=== PATIENT | male | born 1945 | race Caucasian/White ===

== ENCOUNTER 2017-01-12 10:06 | Inpatient (IN) ==
--- NOTE | 2017-01-12 10:33 | Emergency Department Note ---
Disposition Clinical Impression: HCAP (healthcare-associated pneumonia) Disposition: Admitted As Inpatient Condition: Fair Time of Disposition: 14:14 General Adult HPI - General Chief complaint: ED Nausea/Vomiting/Diarrhea Stated complaint: Vomiting Time Seen by Provider: 01/12/17 10:15 Source: patient, EMS Mode of arrival: EMS Limitations: no limitations Nursing Notes Reviewed: Yes Vital Signs Reviewed: Yes - History of Present Illness HPI Narrative: 71-year-old male presents from the [place] via EMS for coughing up blood as well as vomiting. Patient states he woke up twice at approximately 1:00 this morning and 4:00 this morning vomited and had a small speck of blood in each of those. Patient does have a open stoma does not seem to be infected. He said it has been in since 1999. He also agrees been coughing up small streaks of blood that is all coming through his mouth, not his stoma. Patient otherwise is having no pain. He is not having any shortness of breath, chest pain, abdominal pain or is not nauseous at this time. Patient is having no other complaints. Including headache, blurry vision, changes in bowel movements pain with urination or any pain or tingling in the arms or legs or any numbness. Pain Scale: 0 - Related Data Allergies Allergy/AdvReac Type Severity Reaction Status Date / Time aspirin Allergy See Verified 01/12/17 10:46 Comments codeine Allergy See Verified 01/12/17 10:46 Comments Review of Systems: 10 point review of systems done and negative unless otherwise stated in history of present illness. All systems ED: reviewed and negative except as stated. Review of Systems: As Per HPI Constitutional: Denies: fever, chills Cardiovascular: Denies: chest pain Respiratory: Reports: cough Past Medical History - Past Medical History Attestation: Yes The following information was validated with the patient. Source: patient Medical history: Reports: asthma, COPD, myocardial infarction, thyroid disease Psychiatric history: Reports: previous psychiatric hospitalization - Social History Smoking Status: Current every day smoker Smokeless Tobacco Status: No Alcohol use: Reports: none Drug use: Reports: none Physical Exam - General Limitations: no limitations General appearance: alert, in no apparent distress - Head Head exam: atraumatic, normocephalic, normal inspection - Eye Eye exam: Present: normal appearance, PERRL, EOMI - ENT ENT exam: normal exam, normal oropharynx (No blood noticeable in the oropharynx. ), mucous membranes moist - Neck Neck exam: Present: normal inspection - Chest Chest inspection: Present: normal inspection, symmetric chest wall rise - Respiratory Respiratory exam: Present: normal lung sounds bilaterally - Cardiovascular Cardiovascular exam: Present: regular rate, normal rhythm, normal heart sounds - Abdominal Exam Abdominal exam: Present: soft, Non-Tender. Absent: tenderness, distention, guarding, rebound, rigidity - Extremities Exam Extremities exam: Present: normal inspection, full ROM, normal capillary refill. Absent: tenderness, pedal edema, joint swelling, calf tenderness - Expanded Lower Extremity Exam Neurovascular/Tendon exam: Absent: motor deficit, sensory deficit, tendon deficit - Back Exam Back exam: Present: normal inspection, full ROM. Absent: tenderness, CVA tenderness (R), CVA tenderness (L) - Neurological Exam Neurological exam: Present: alert, oriented X3 - Psychiatric Psychiatric exam: Present: normal affect, normal mood - Skin Skin exam: Present: warm, dry, intact, normal color Course Course Narrative: 71-year-old male presented to the ED for vomiting up and coughing up blood. He comfortably. He is having any complaints otherwise here. We will just do a CBC , BMP, chest x-ray. If everything comes back normal no acute findings will sent back to [place] for continued psychiatric treatment. Patient is okay with this plan. - Reevaluation(s) Reevaluation #1: Patient's chest x-ray came back showing abnormalities with others worried about possible pulmonary effusion and a wide mediastinum so after talking to patient we decided that we will get a troponin as well as an EKG into a CT angiogram of his chest. Patient is okay with this plan. After the records from the [place] patient is on Clopidogrel. 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 Patient does have a history of CAD, COPD. Patient has had bypass before. Patient did eventually put on oxygen while here 2 L via the stoma to help with his oxygen saturations. Time: 12:32 Vital Signs Temperature 98.1 F 01/12/17 10:14 Pulse Rate 94 01/12/17 10:14 Respiratory Rate 18 01/12/17 10:14 Blood Pressure 160/98 01/12/17 10:14 O2 Sat by Pulse Oximetry 97 01/12/17 10:14 Temperature 98.1 F 01/12/17 10:14 Pulse Rate 98 01/12/17 10:14 Respiratory Rate 18 01/12/17 14:26 Blood Pressure 150/60 01/12/17 14:26 O2 Sat by Pulse Oximetry 97 01/12/17 10:14 Oxygen Delivery Oxygen Delivery [place] Medical Decision Making - MDM Narrative Medical decision making narrative: 71-year-old male presents to the ED from the [place] for hemoptysis and hematemesis. Patient does have a stoma due to having laryngeal cancer and had a complete laryngectomy. This is done in 1999. He does have a stoma. Patient states he is not complaining of any pain he says that he has had a cough for last 2 days because of COPD. Patient also has history of CAD. Was not complaining chest pain he did have a bypass done many years ago. Said no, dictation since then. He was admitted to the [facility] in their psychiatric unit for psych issues. Otherwise having no complaints. Here we did a basic labs including CBC and BMP which came back normal. Chest x-ray did show possibility of a pneumonia or effusions at this time we decided to order a CTA of his chest as he was hypoxic and tachycardic. Patient was less hypoxic after we placed the nasal cannula on his stoma rather than his mouth. Patient's now satting at 95%. CTA showed consolidations and most likely pneumonia was with possible empyema/pleural effusion. At this time we decided to order lactate and started him on broad- spectrum antibiotics as this could be hospital-acquired pneumonia we started him on Levaquin, Zosyn, vancomycin. We also got blood cultures. Patient is admitted to the hospital service to Dr. Gallegos who agreed to accept the patient. Patient is stable at this time and admitted to the hospitalist service. Chest X-Ray 01/12/17 10:28 IMPRESSION: Prominence of the superior mediastinum of uncertain etiology. Findings could be related to artifact from portable technique and shallow breath. If there is any concern for acute aortic pathology recommend further evaluation with CTA. [id number] bilateral pleural effusions with adjacent airspace opacities, either atelectasis or pneumonia. Cardiomegaly with mild interstitial edema. Constellation of findings could also reflect congestive heart failure. D/ / 01/12/2017 11:15:49 Iva Barrera MD / [email or web address] Interpreting Provider: Iva Barrera MD Chest CTA 01/12/17 12:10 IMPRESSION: 1. Loculated pleural effusion on the right side and smaller type effusions seen on the left. There is pleural enhancement, and the possibility of an empyema is considered. 2. Diffuse, mild airway thickening is identified along with debris in the airway. Peripheral consolidations are associated, findings which may relate to acute aspiration or aspiration pneumonitis. 3. Suspected area of rounded atelectasis in the posterior basal left lower lobe. 4. Pulmonary arteries are patent. 5. Extensive degenerative change in the thoracic spine. RECOMMENDATIONS: At the resolution of the acute inflammatory process, repeat imaging recommended to further evaluate underlying lung parenchyma. D/ / 01/12/2017 13:17:45 Darwin Blunt / dre Interpreting Provider: Darwin Blunt - Medical Records Medical records reviewed: Yes I reviewed the patient's medical records. - Lab Data Lab results reviewed: Yes I reviewed the patient's lab results. Result diagrams: 01/12/17 10:39 01/12/17 10:39 Lab Results 01/12/17 01/12/17 01/12/17 Range/Units 10:39 10:39 10:39 WBC 5.2 (4.3-11.1) K/mcL RBC 3.77 L (4.19-5.50) M/mcL Hgb 9.3 L (12.9-16.9) g/dL Hct 31.5 L (37.5-50.1) % MCV 83.6 (83.0-100.0) fL MCH 24.7 L (28.0-33.3) pg MCHC 29.5 L (31.6-35.5) g/dL RDW 14.9 H (11.5-14.5) % Plt Count 207 (140-400) K/mcL MPV 9.4 (9.4-12.4) fL Immature Gran % 0.6 (0-4) % Seg Neutrophils % 70.4 % Lymphocytes % 16.6 % Monocytes % 6.2 % Eosinophils % 5.6 % Basophils % 0.6 % Neutrophils # 3.7 (1.6-8.9) K/mcL Lymphocytes # 0.9 (0.6-4.6) K/mcL Monocytes # 0.3 (0.0-1.3) K/mcL Eosinophils # 0.3 (0.0-0.6) K/mcL Basophils # 0.0 (0.0-0.2) K/mcL PT (9.4-12.1) Seconds INR Sodium 139 (136-145) mEq/L Potassium 4.3 (3.5-4.5) mEq/L Chloride 104 (98-109) mEq/L Carbon Dioxide 30 H (19-29) mEq/L BUN 13 (8-26) mg/dL Creatinine 0.95 (0.72-1.25) mg/dL Est GFR ( Amer) > 60 (> 60) Est GFR (Non-Af Amer) > 60 (> 60) BUN/Creatinine Ratio 14 (6-26) Glucose 121 H (70-99) mg/dL Calculated Osmolality 289 (280-300) Lactic Acid (0.5-2.2) mmol/L Calcium 8.1 L (8.6-10.8) mg/dL Troponin I 0.00 (0-0.03) ng/mL 01/12/17 01/12/17 Range/Units 13:42 13:42 WBC (4.3-11.1) K/mcL RBC (4.19-5.50) M/mcL Hgb (12.9-16.9) g/dL Hct (37.5-50.1) % MCV (83.0-100.0) fL MCH (28.0-33.3) pg MCHC (31.6-35.5) g/dL RDW (11.5-14.5) % Plt Count (140-400) K/mcL MPV (9.4-12.4) fL Immature Gran % (0-4) % Seg Neutrophils % % Lymphocytes % % Monocytes % % Eosinophils % % Basophils % % Neutrophils # (1.6-8.9) K/mcL Lymphocytes # (0.6-4.6) K/mcL Monocytes # (0.0-1.3) K/mcL Eosinophils # (0.0-0.6) K/mcL Basophils # (0.0-0.2) K/mcL PT 12.7 H (9.4-12.1) Seconds INR 1.2 Sodium (136-145) mEq/L Potassium (3.5-4.5) mEq/L Chloride (98-109) mEq/L Carbon Dioxide (19-29) mEq/L BUN (8-26) mg/dL Creatinine (0.72-1.25) mg/dL Est GFR ( Amer) (> 60) Est GFR (Non-Af Amer) (> 60) BUN/Creatinine Ratio (6-26) Glucose (70-99) mg/dL Calculated Osmolality (280-300) Lactic Acid 0.6 (0.5-2.2) mmol/L Calcium (8.6-10.8) mg/dL Troponin I (0-0.03) ng/mL - Radiology Data Radiology results reviewed: Yes I reviewed the patient's radiology results. - EKG Data EKG #1 EKG attestation: Yes I reviewed and interpreted this EKG. EKG results narrative: EKG done at 12:15 reviewed by myself and the attending shows sinus rhythm with a first-degree AV block at a rate of 90, [place] interval 267, QRS 119, QTC 419 with a leftward axis there is no acute ST changes, no acute T-wave abnormalities, no signs of any heart strain or hypertrophy there is a first-degree AV block, no signs of WPW/Brugada syndrome. This is compared with an old EKG done 01/04/16 and is unchanged base on this EKG. Attestation Statement - Attestation Attestation: I examined this patient and my medical decision-making was reviewed with the Resident Physician. I agree with the documented findings, disposition and treatment plan as described except to the extent set forth below. 71-year-old male since the ED from the [facility] for evaluation of hemoptysis. He has had cough as well as possible hematemesis. No fevers or chills. Patient complains of mild increase in dyspnea. Denies any focal pain. Well-appearing male in no apparent distress. He is found sleeping on room air with a pulse ox of 80%. Oropharynx clear. He does have a tracheostomy with an open stoma. No palpable crepitus. Chest with scattered rhonchi in the bases. Breath sounds are symmetrically diminished bilaterally. Chest wall nontender. Abdomen soft nontender. Chest x-ray with bilateral effusions and infiltrates. CT of the chest is concerning for empyema effusion to the pneumonia. He started on broad-spectrum antibiotics and will be admitted to the hospitalist for further treatment and evaluation.
[2017-01-12 10:58] LABS: BUN/Creatinine Ratio 14 (6-26); Blood Urea Nitrogen 13 mg/dL (8-26); Calcium 8.1 mg/dL (8.6-10.8); Carbon Dioxide 30 mEq/L (19-29); Chloride 104 mEq/L (98-109); Glucose 121 mg/dL (70-99); Osmolality,Calculated 289 (280-300); Potassium 4.3 mEq/L (3.5-4.5); Sodium 139 mEq/L (136-145); eGFR For African Americans > 60 (> 60); eGFR For Non-African Americans > 60 (> 60)
[2017-01-12 11:03] LABS: Basophils % 0.6 %; Eosinophils # 0.3 K/mcL (0.0-0.6); Eosinophils % 5.6 %; Hematocrit 31.5 % (37.5-50.1); Hemoglobin 9.3 g/dL (12.9-16.9); Immature Granulocytes % 0.6 % (0-4); Lymphocytes # 0.9 K/mcL (0.6-4.6); Lymphocytes % 16.6 %; Mean Corpuscular HGB Conc 29.5 g/dL (31.6-35.5); Mean Corpuscular Hemoglobin 24.7 pg (28.0-33.3); Mean Corpuscular Volume 83.6 fL (83.0-100.0); Mean Platelet Volume 9.4 fL (9.4-12.4); Monocytes # 0.3 K/mcL (0.0-1.3); Monocytes % 6.2 %; Neutrophils # 3.7 K/mcL (1.6-8.9); Platelet Count 207 K/mcL (140-400); Red Blood Count 3.77 M/mcL (4.19-5.50); Red Cell Distribution Width 14.9 % (11.5-14.5); Segmented Neutrophils % 70.4 %
[2017-01-12] MEDS ORDERED: Vancomycin 1,000 MG in D5% in Water 250 ML IVPB ONE (13:24)
[2017-01-12] MEDS ORDERED: Levofloxacin 750 MG/150 ML 750 MG/150 ML BAG IVPB ONE (13:25)
[2017-01-12] MEDS ORDERED: Piperacillin/Tazobactam 3.375 GM in 0.9 % Sodium Chloride Mini Bag 100 ML IVPB ONE (13:25)
[2017-01-12 13:54] LABS: INR 1.2; Prothrombin Time 12.7 Seconds (9.4-12.1)
--- NOTE | 2017-01-12 16:26 | Internal Med History&Physical ---
Date of Encounter: 01/12/17 Time of Encounter: 16:23 Assessment and Plan (1) HCAP (healthcare-associated pneumonia) Current visit: Yes Status: Acute 71/male Patient is a resident of inpatient [place] psych unit. Transfer to this hospital emergency room for couple of episodes of hemoptysis. Patient has a tracheostomy stoma since 1999. Present hemoglobin 9.2. Present INR 1.2. Platelet count 207 CTA chest: Loculated left pleural effusion, possibility of empyema Left lower lobe pneumonia No pulmonary embolism. Plan: Admit as inpatient IV antibiotics: Vancomycin/Zosyn/levofloxacin IV steroids: Solu-Medrol 40 mg every 8 hr Inhaled bronchodilators. DuoNeb every 4 hours We will keep nothing by mouth. IV fluids 70 mL per hour. We need his medical records from [place]. I spoke to tip scourer( Dr Sinha) patient liaison and discuss the plan. Patient will go for possible bronchoscopy tomorrow. Of note I examined this patient in the room 2A38 along with JOHANNE Ordonez. I have answered all the questions and I informed plan to the patient. The communication with the patient is as follows. Patient will write his questions/concerns on a piece of paper as it is very difficult for him to talk without closing the stoma. But patient understands verbal communication from other side extremely well. (2) Hemoptysis Current visit: Yes Status: Acute Minimal streaky hemoptysis. We will give patient left lateral position. Antibiotics/bronchodilators/steroids. We will do some cough suppressant medication. Possible bronchoscopy tomorrow (3) Dilated tracheostomy stoma Current visit: Yes Status: Acute Patient is dilated to a tracheostomy stoma. (4) COPD (chronic obstructive pulmonary disease) Current visit: Yes Status: Acute patient has a stable COPD Qualifiers: COPD type: unspecified COPD Qualified Code(s): J44.9 - Chronic obstructive pulmonary disease, unspecified (5) DVT prophylaxis Current visit: Yes Status: Acute This patient is not a candidate for pharmacological DVT prophylaxis in view of her hemoptysis. We will give him SCDs. Medical decision making: This patient has a moderate to severe risk of worsening in spite of being on appropriate treatment due to the underlying complex comorbid issues. Internal Medicine - H&P: HPI Chief complaint: Coughing up blood Admitted From: Emergency Dept Plans for Post Hospital Care: Transfer Inp Rehab Fac History of present illness: Mr. Echavarria is a 71 year old male, who is a resident of [facility] inpatient psychiatry unit. Patient is an inpatient psychiatric unit for hallucinations. Last night patient woke up twice and when he was coughing he realizes that along with the sputum he had a few streaks of blood. Patient had a disorder of vomiting and at the end of vomiting he had a possibility of a active bleeding. Patient does have tracheostomy stoma since 1999. Patient cannot speak unless he closes his stoma. Patient denies chest pain, shortness of breath, nausea, vomiting, abdominal pain, diarrhea or dizziness. In view of the persistent hemoptysis, he was transferred from [facility] to this hospital for further evaluation. Patient was evaluated in the emergency room. Basic labs were drawn. CTA chest was done. CTA chest was suggestive of a pneumonia. His hemoglobin is 9.3. In this system with do not have any other hemoglobin to compare this hemoglobin. His INR is 1.2. Reason for hospitalization: Hospital-acquired pneumonia with hemoptysis for close monitoring and intravenous antibiotics Family history: Noncontributory Past Med Surg Social Fam HX - Past Medical History Medical history: asthma, COPD, myocardial infarction, thyroid disease Psychiatric history: previous psychiatric hospitalization - Past Surgical History Surgical History: no surgical history - Social History Smoking Status: Current every day smoker Smokeless Tobacco Status: No Alcohol use: none Drug use: none - Family History Mother History Unknown: Yes Internal Medicine - H&P: Meds Acetaminophen [Tylenol Arthritis] 650 mg PO Q6H PRN 01/12/17 [History] Albuterol Sulfate [Albuterol Inhaler] 2 puff IH Q6HR 01/12/17 [History] Amoxicillin/Clavulanate [Augmentin] 875 mg PO BIDWM 01/12/17 [History] Atorvastatin [Lipitor] 40 mg PO HS 01/12/17 [History] Clopidogrel Bisulfate [Plavix] 75 mg PO DAILY 01/12/17 [History] Cyclobenzaprine [Flexeril] 10 mg PO TID 01/12/17 [History] Ferrous Sulfate [Iron] 325 mg PO BID 01/12/17 [History] Gabapentin [Neurontin] 800 mg PO TID 01/12/17 [History] Isosorbide MONOnitrate (24 HR) [Imdur] 60 mg PO DAILY 01/12/17 [History] Levothyroxine [Synthroid] 25 mcg PO DAILY 01/12/17 [History] Melatonin [Melatin] 3 mg PO HS 01/12/17 [History] Omeprazole 20 mg PO BID 01/12/17 [History] Sertraline [Zoloft] 100 mg PO DAILY 01/12/17 [History] risperiDONE [Risperdal] 1 mg PO HS 01/12/17 [History] 3 Allergy/AdvReac Type Severity Reaction Status Date / Time aspirin Allergy See Verified 01/12/17 10:46 Comments codeine Allergy See Verified 01/12/17 10:46 Comments All Systems PM: A 10-system review of systems was performed and is negative for pertinent findings except as documented above in the HPI. - Constitutional Constitutional: no chills, no fever(s), no night sweats - EENT Eyes: no change in vision, no discharge, no pain, no photophobia Ears: no ear discharge, no ear pain, no tinnitus Nose, mouth and throat: no dysphagia, no nasal discharge, no neck pain, no sore throat - Cardiovascular Cardiovascular ROS IM: no chest pain, no diaphoresis, no dyspnea, no lightheadedness, no palpitations, no syncope - Respiratory Respiratory: cough, dyspnea, hemoptysis, change in phlegm color, no wheezing, no excessive phlegm production - Gastrointestinal Gastrointestinal: no abdominal pain, no diarrhea, no hematemesis, no hematochezia, no melena, no nausea, no vomiting - Musculoskeletal Musculoskeletal ROS IM: no numbness, no tingling - Integumentary Integumentary IM: no rash, no unusual bruising - Neurological Neurological ROS: no confusion, no convulsions, no focal weakness, no numbness, no tingling, no tremor(s) - Hematologic/Lymphatic Hematologic/Lymphatic: no easy bruising - Constitutional Vitals: Temp Pulse Resp BP Pulse Ox 98.1 F 98 18 150/60 97 01/12/17 10:14 01/12/17 10:14 01/12/17 14:26 01/12/17 14:26 01/12/17 10:14 General appearance: Present: A&O X 3, pleasant, no acute distress, answers questions appropriately - Head Head exam: Present: atraumatic, normocephalic - Eye Eye exam: Present: PERRL, conjuntiva pink, sclera anicteric Pupils: Present: PERRL - Neck Neck exam general surgery: Present: supple, trachea midline. Absent: lymphadenopathy - Respiratory Respiratory exam: Present: CTAB. Absent: accessory muscle use, rales, rhonchi, wheezes - Cardiovascular Cardiovascular exam: Present: RRR, +S1, +S2. Absent: diastolic murmur, gallop, rubs, systolic murmur - GI/Abdominal GI/Abdominal exam: Present: normal bowel sounds, soft, no peritoneal signs. Absent: distended, tenderness - Extremities Exam Extremities exam: Present: warm, radial pulses palpable and symmetrical. Absent : calf tenderness, cyanotic, pedal edema - Neurological Exam Neurological exam: Present: CN II-XII intact, oriented X3, no focal deficits. Absent: pronater drift, facial droop, speech deficit - Skin Skin exam: Present: dry, intact Internal Med - H&P Results - Labs CBC & Chem 7: 01/12/17 10:39 01/12/17 10:39
[2017-01-12] MEDS ORDERED: Naloxone 0.4 MG/ML INJ IVP PRN (16:45)
[2017-01-12] MEDS ORDERED: Ondansetron ODT 4 MG TAB.RAPDIS SL PRN (16:45)
[2017-01-12] MEDS ORDERED: Vancomycin 1,250 MG in D5% in Water 250 ML IVPB SCH (17:00)
[2017-01-12] MEDS: 0.9 % Sodium Chloride 1,000 ML IVC SCH (19:16)
[2017-01-12] MEDS: risperiDONE 1 MG TABLET PO SCH (20:55)
[2017-01-12] MEDS: Gabapentin 400 MG CAPSULE PO SCH (20:55)
[2017-01-12] MEDS: Melatonin 3 MG TABLET PO SCH (20:55)
[2017-01-12] MEDS: Ipratropium/Albuterol Neb 3 ML IH SCH (21:02)
[2017-01-13] MEDS: Ipratropium/Albuterol Neb 3 ML IH SCH ×3 (00:24→07:36)
[2017-01-13] MEDS: Piperacillin/Tazobactam 3.375 GM in 0.9 % Sodium Chloride Mini Bag 100 ML IVPB SCH ×3 (00:37→16:14)
[2017-01-13] MEDS: MethylPREDNISolone 40 MG/ML VIAL IVP SCH ×3 (00:37→16:13)
[2017-01-13 03:25] LABS: Basophils % 0.4 %; Eosinophils # 0.2 K/mcL (0.0-0.6); Eosinophils % 4.2 %; Hematocrit 29.8 % (37.5-50.1); Hemoglobin 8.8 g/dL (12.9-16.9); Immature Granulocytes % 0.5 % (0-4); Lymphocytes # 0.6 K/mcL (0.6-4.6); Lymphocytes % 9.9 %; Mean Corpuscular HGB Conc 29.5 g/dL (31.6-35.5); Mean Corpuscular Hemoglobin 24.4 pg (28.0-33.3); Mean Corpuscular Volume 82.5 fL (83.0-100.0); Monocytes # 0.2 K/mcL (0.0-1.3); Monocytes % 3.2 %; Neutrophils # 4.5 K/mcL (1.6-8.9); Nucleated Red Blood Cells 0.4 /100 WBC (0); Platelet Count 219 K/mcL (140-400); Red Blood Count 3.61 M/mcL (4.19-5.50); Red Cell Distribution Width 14.6 % (11.5-14.5); Segmented Neutrophils % 81.8 %
[2017-01-13 03:31] LABS: INR 1.2
[2017-01-13 03:33] LABS: Activated Partial Thrombo Time 32.8 Seconds (26.0-36.0)
[2017-01-13 03:50] LABS: Alanine Aminotransferase 12 Units/L (0-55); Albumin 2.2 g/dL (3.5-5.0); Albumin/Globulin Ratio 0.4 (1.1-2.2); Alkaline Phosphatase 107 Units/L (38-126); Aspartate Amino Transferase 13 Units/L (5-34); BUN/Creatinine Ratio 12 (6-26); Bilirubin,Total 0.4 mg/dL (0.2-1.2); Blood Urea Nitrogen 11 mg/dL (8-26); Carbon Dioxide 30 mEq/L (19-29); Chloride 102 mEq/L (98-109); Chol/HDL Ratio 3.4 (0-4.9); Cholesterol 84 mg/dL (< 200); Globulin 5.1 g/dL (2.4-3.5); Glucose 88 mg/dL (70-99); HDL Cholesterol 25 mg/dL (40-59); LDL Cholesterol,Calculated 48 mg/dL (0-99); Magnesium 2.1 mg/dL (1.6-2.6); Osmolality,Calculated 281 (280-300); Phosphorous 3.4 mg/dL (2.3-4.7); Potassium 4.1 mEq/L (3.5-4.5); Sodium 136 mEq/L (136-145); Total Protein 7.3 g/dL (6.0-8.3); Triglycerides 56 mg/dL (< 150); eGFR For African Americans > 60 (> 60); eGFR For Non-African Americans > 60 (> 60)
[2017-01-13] MEDS: Vancomycin 1,250 MG in D5% in Water 250 ML IVPB SCH ×2 (06:13→17:16)
[2017-01-13] MEDS: Levothyroxine 25 MCG TABLET PO SCH (06:14)
[2017-01-13] MEDS: Levofloxacin 750 MG/150 ML 750 MG/150 ML BAG IVPB SCH (08:17)
[2017-01-13] MEDS: Gabapentin 400 MG CAPSULE PO SCH ×3 (08:24→20:41)
[2017-01-13] MEDS: Isosorbide MONOnitrate (24 HR) 60 MG TAB.ER.24H PO SCH (08:24)
--- NOTE | 2017-01-13 09:29 | Pulmonology Consult Note ---
<Bernabe Liang - Last Filed: 01/13/17 11:45> Date of Encounter: 01/13/17 Time of Encounter: 08:50 Assessment and Plan (1) HCAP (healthcare-associated pneumonia) Current Visit: Yes Status: Acute Agree with broad spectrum antibiotics/bronchodilators/steroids. Continue cough suppressant (2) Empyema of lung Current Visit: Yes Status: Suspected Suspected CTA reveals loculated pleural effusion on the right side and smaller similar type effusion seen on the left. There is pleural enhancement, and the possibility of an empyema is considered. IR consulted for diagnostic thoracentesis Pleural fluid analysis pending Continue current therapy (3) COPD (chronic obstructive pulmonary disease) Current Visit: Yes Status: Chronic Acute COPD exacerbation Antibiotics/bronchodilators/steroids. Qualifiers: COPD type: COPD with acute exacerbation Qualified Code(s): J44.1 - Chronic obstructive pulmonary disease with (acute) exacerbation (4) Hemoptysis Current Visit: Yes Status: Resolved Resolved. Blood Streaked sputum x1 No bronchoscopy at this time (5) Dilated tracheostomy stoma Current Visit: Yes Status: Acute Tracheostomy stoma since 1999 (6) Tobacco dependence Current Visit: Yes Status: Chronic Tobacco cessation History of Present Illness Consult date: 01/12/17 Requesting physician: Дмитрий Gallegos Reason for consult: pneumonia Chief complaint: SOB History of present illness: Mr. Echavarria is a 71 year old male resident at the [facility] inpatient psychiatry unit for hallucinations with a PMH of COPD, tracheostomy stoma since 1999, and tobacco dependence who presented due to cough. Patient cannot speak unless he closes his stoma. He was transferred from [facility] to this hospital for further evaluation for possible hemoptysis. In the ED, CTA chest was suggestive of pneumonia with loculated pleural effusion on the right side and possible empyema. Pulmonology was consulted for possible bronchoscopy. Past Med Surg Social Fam HX - Past Medical History Medical history: asthma, COPD, myocardial infarction, thyroid disease Psychiatric history: previous psychiatric hospitalization - Past Surgical History Surgical History: no surgical history - Social History Smoking Status: Current every day smoker Smokeless Tobacco Status: No Alcohol use: none Drug use: none - Family History Mother History Unknown: Yes Medications and Allergies Acetaminophen [Tylenol Arthritis] 650 mg PO Q6H PRN 01/12/17 [History] Albuterol Sulfate [Albuterol Inhaler] 2 puff IH Q6HR 01/12/17 [History] Amoxicillin/Clavulanate [Augmentin] 875 mg PO BIDWM 01/12/17 [History] Atorvastatin [Lipitor] 40 mg PO HS 01/12/17 [History] Clopidogrel Bisulfate [Plavix] 75 mg PO DAILY 01/12/17 [History] Cyclobenzaprine [Flexeril] 10 mg PO TID 01/12/17 [History] Ferrous Sulfate [Iron] 325 mg PO BID 01/12/17 [History] Gabapentin [Neurontin] 800 mg PO TID 01/12/17 [History] Isosorbide MONOnitrate (24 HR) [Imdur] 60 mg PO DAILY 01/12/17 [History] Levothyroxine [Synthroid] 25 mcg PO DAILY 01/12/17 [History] Melatonin [Melatin] 3 mg PO HS 01/12/17 [History] Omeprazole 20 mg PO BID 01/12/17 [History] Sertraline [Zoloft] 100 mg PO DAILY 01/12/17 [History] risperiDONE [Risperdal] 1 mg PO HS 01/12/17 [History] 3 Allergy/AdvReac Type Severity Reaction Status Date / Time aspirin Allergy See Verified 01/12/17 10:46 Comments codeine Allergy See Verified 01/12/17 10:46 Comments All Systems: A 10-system review of systems was performed and is negative for pertinent findings except as documented above in the HPI. - Constitutional Constitutional: no anorexia, no chills, no fever(s), no weakness - EENT Nose, mouth and throat: odynophagia, no sinus pressure, no sore throat, no throat swelling - Cardiovascular Cardiovascular: palpitations, rapid heart rate - Respiratory Respiratory: dyspnea, hemoptysis (blood streaked x1, resolved), wheezing, chest congestion, excessive phlegm production, change in phlegm color - Gastrointestinal Gastrointestinal: no hematemesis, no nausea, no vomiting - Musculoskeletal Musculoskeletal: no weakness, no neck pain - Integumentary Integumentary: no erythema, no rash - Neurological Neurological: no confusion, no syncope, no weakness - Psychiatric Psychiatric: anxiety, no depression Physical Examination Vital Signs: Vital Signs, Last 4 Hours Temp Pulse Resp BP Pulse Ox 01/13/17 08:44 98.5 F 95 15 160/99 90 01/13/17 07:36 15 98 01/13/17 05:50 97.9 F 88 13 141/86 94 General appearance: no acute distress (communicates with pen and paper) Eyes: nonicteric ENT: oropharynx dry Neck: supple (stoma with no surrounding erythema) Effort: normal Inspection: normal Auscultation: left: wheezes, right: diminished breath sounds Percussion: bilateral: not dull Cardiovascular: regular rate and rhythm (tachycardia) Gastrointestinal: normoactive bowel sounds, non-distended Integumentary: normal Extremities: no cyanosis, no edema Musculoskeletal: no deformities normal mental status, non-focal exam mood appropriate, affect normal Results - Laboratory Findings CBC and BMP: 01/13/17 02:30 01/13/17 02:30 PT/INR, D-dimer PT 13.0 Seconds (9.4-12.1) H 01/13/17 02:30 Abnormal lab findings: Abnormal lab results RBC 3.61 M/mcL (4.19-5.50) L 01/13/17 02:30 Hgb 8.8 g/dL (12.9-16.9) L 01/13/17 02:30 Hct 29.8 % (37.5-50.1) L 01/13/17 02:30 MCV 82.5 fL (83.0-100.0) L 01/13/17 02:30 MCH 24.4 pg (28.0-33.3) L 01/13/17 02:30 MCHC 29.5 g/dL (31.6-35.5) L 01/13/17 02:30 RDW 14.6 % (11.5-14.5) H 01/13/17 02:30 Nucleated RBCs/100 WBC 0.4 /100 WBC (0) H 01/13/17 02:30 PT 13.0 Seconds (9.4-12.1) H 01/13/17 02:30 Carbon Dioxide 30 mEq/L (19-29) H 01/13/17 02:30 Calcium 8.0 mg/dL (8.6-10.8) L 01/13/17 02:30 B-Natriuretic Peptide 489 pg/mL (0-100) H 01/13/17 02:30 Albumin 2.2 g/dL (3.5-5.0) L 01/13/17 02:30 Globulin 5.1 g/dL (2.4-3.5) H 01/13/17 02:30 Albumin/Globulin Ratio 0.4 (1.1-2.2) L 01/13/17 02:30 HDL Cholesterol 25 mg/dL (40-59) L 01/13/17 02:30 - Diagnostic Findings Chest x-ray: report reviewed, image reviewed CT scan - chest: report reviewed, image reviewed - Clinical Findings Intake & Output: Intake & Output 01/12/17 01/13/17 01/13/17 23:59 07:59 15:59 Intake Total 475 / 475 Output Total 0 / 0 0 / 0 Balance 475 / 475 0 / 0 Weight 83.4 kg Consult Discharge Plan - Plan [facility] Care Provider[facility] - <Mik Marie S - Last Filed: 01/13/17 18:55> Date of Encounter: 01/13/17 All Systems: A 10-system review of systems was performed and is negative for pertinent findings except as documented above in the HPI. Physical Examination Vital Signs: Vital Signs, Last 4 Hours Temp Pulse BP Pulse Ox 01/13/17 16:23 99.3 F 98 165/90 93 Results - Laboratory Findings CBC and BMP: 01/13/17 02:30 01/13/17 02:30 PT/INR, D-dimer PT 13.0 Seconds (9.4-12.1) H 01/13/17 02:30 Abnormal lab findings: Abnormal lab results RBC 3.61 M/mcL (4.19-5.50) L 01/13/17 02:30 Hgb 8.8 g/dL (12.9-16.9) L 01/13/17 02:30 Hct 29.8 % (37.5-50.1) L 01/13/17 02:30 MCV 82.5 fL (83.0-100.0) L 01/13/17 02:30 MCH 24.4 pg (28.0-33.3) L 01/13/17 02:30 MCHC 29.5 g/dL (31.6-35.5) L 01/13/17 02:30 RDW 14.6 % (11.5-14.5) H 01/13/17 02:30 Nucleated RBCs/100 WBC 0.4 /100 WBC (0) H 01/13/17 02:30 PT 13.0 Seconds (9.4-12.1) H 01/13/17 02:30 Carbon Dioxide 30 mEq/L (19-29) H 01/13/17 02:30 Calcium 8.0 mg/dL (8.6-10.8) L 01/13/17 02:30 B-Natriuretic Peptide 489 pg/mL (0-100) H 01/13/17 02:30 Albumin 2.2 g/dL (3.5-5.0) L 01/13/17 02:30 Globulin 5.1 g/dL (2.4-3.5) H 01/13/17 02:30 Albumin/Globulin Ratio 0.4 (1.1-2.2) L 01/13/17 02:30 HDL Cholesterol 25 mg/dL (40-59) L 01/13/17 02:30 Pleural Appearance Bloody (Clear) A 01/13/17 14:14 - Microbiology Findings Microbiology Findings: Microbiology, Last 48 Hours 01/13/17 14:14 Gram Stain - Final Pleural Fluid - Clinical Findings Intake & Output: Intake & Output 01/13/17 01/13/17 01/13/17 07:59 15:59 23:59 Intake Total 350 / 350 1340 / 1340 Output Total 0 / 0 Balance 350 / 350 1340 / 1340 Weight 83.4 kg - Attending Attestation I saw the patient with the resident agree with History and Physical exam findings. Labs and Radiology were reviewed Empyema of Right lung : referred to IR due to loculated pleural effusion , CT guided Chest tube placement as pus removed from the pocket will continue the broad spectrum antibiotics will see the resolution of the pocket and resultant expansion of the lung by repeating CT chest tomorrow , will need broad spectrum antibiotics till c/s then according to sensitivity will need longterm antibiotics , if there is incomplete resolution will try to intrapleural fibrinolytics and DNAase if not getting resolved after that will consult Cardiothoracic surgery . Hempotysis : Patient hemoptysis resolved most likely due to underlying pneumonia no need for bronchoscopy for now HCAP : To continue the broad spectrum antibiotics . COPD exacerbation : To continue Bronchodilators and steroids.
[2017-01-13] MEDS ORDERED: Ipratropium/Albuterol Neb 3 ML IH PRN (09:53)
--- NOTE | 2017-01-13 11:38 | Electrocardiograph Report ---
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
[2017-01-13 11:53] LABS: Lactate Dehydrogenase 178 Units/L (159-327)
--- NOTE | 2017-01-13 14:28 | IR Procedure Note ---
Date of procedure: 01/13/17 Consent Obtained: Written consent Timeout: Correct patient and procedure verified, Correct site verified, Time out performed, Skin prep completed Local anesthetic: Lidocaine 1% Indications: Loculated right pleural effusion Procedure Performed: CT guided right chest tube placement Results/Findings: 10F right chest tube placement. If no infection then can remove tube. Complications: None; Tolerated procedure well (Monitor on floor)
[2017-01-13 15:15] LABS: LDH,Pleural Fluid 214 Units/L (No Ref Range)
[2017-01-13 15:16] LABS: Total Protein,Pleural Fluid 2.1 g/dL (No Ref Range)
--- NOTE | 2017-01-13 16:07 | Internal Med Progress Note ---
Date of Encounter: 01/13/17 Time of Encounter: 16:03 - Assessment and plan (1) HCAP (healthcare-associated pneumonia) Current Visit: Yes Status: Acute Assessment and plan: Day 2 hospitalization Day 2 broad spectrum Abx no fever and no medications that can mask fever. Pulmonary consult noted and appreciated. noted patient underwent IR guided tube placement. plan await for pleural fluid analysis report cont abx close monitoring chest tube management as per pulmonary/IR (2) Hemoptysis Current Visit: Yes Status: Resolved Assessment and plan: no hemoptysis in last 24 hours (3) Dilated tracheostomy stoma Current Visit: Yes Status: Acute Assessment and plan: stable (4) COPD (chronic obstructive pulmonary disease) Current Visit: Yes Status: Chronic Assessment and plan: On seroids/BDAs Qualifiers: COPD type: COPD with acute exacerbation Qualified Code(s): J44.1 - Chronic obstructive pulmonary disease with (acute) exacerbation (5) DVT prophylaxis Current Visit: Yes Status: Acute Assessment and plan: cont same - Subjective Interval history: patient seen and examined. chart reviewed. patient is comfortable and denies hemoptysis overnight. denies chest pain, fever or SOB - Constitutional Vitals: Temp Pulse Resp BP Pulse Ox 98.7 F 95 15 183/109 90 01/13/17 11:08 01/13/17 11:08 01/13/17 11:08 01/13/17 11:08 01/13/17 11:08 General appearance: Present: A&O X 3, pleasant, no acute distress, answers questions appropriately - Head Head exam: Present: atraumatic, normocephalic - Eye Eye exam: Present: PERRL, conjuntiva pink, sclera anicteric Pupils: Present: PERRL - Neck Neck exam general surgery: Present: supple, trachea midline. Absent: lymphadenopathy - Respiratory Respiratory exam: Present: CTAB. Absent: accessory muscle use, rales, rhonchi, wheezes - Cardiovascular Cardiovascular exam: Present: RRR, +S1, +S2. Absent: diastolic murmur, gallop, rubs, systolic murmur - GI/Abdominal GI/Abdominal exam: Present: normal bowel sounds, soft, no peritoneal signs. Absent: distended, tenderness - Extremities Exam Extremities exam: Present: warm, radial pulses palpable and symmetrical. Absent : calf tenderness, cyanotic, pedal edema - Neurological Exam Neurological exam: Present: CN II-XII intact, oriented X3, no focal deficits. Absent: pronater drift, facial droop, speech deficit - Skin Skin exam: Present: dry, intact Internal Medicine: Result - Labs CBC & Chem 7: 01/13/17 02:30 01/13/17 02:30 Labs: Short CBC 01/13/17 Range/Units 02:30 WBC 5.5 (4.3-11.1) K/mcL Hgb 8.8 L (12.9-16.9) g/dL Hct 29.8 L (37.5-50.1) % Plt Count 219 (140-400) K/mcL Neutrophils # 4.5 (1.6-8.9) K/mcL BMP 01/13/17 02:30 Sodium 136 Potassium 4.1 Chloride 102 Carbon Dioxide 30 H BUN 11 Creatinine 0.91 Glucose 88 Calcium 8.0 L Liver Function 01/13/17 Range/Units 02:30 Total Bilirubin 0.4 (0.2-1.2) mg/dL AST 13 (5-34) Units/L ALT 12 (0-55) Units/L Alkaline Phosphatase 107 (38-126) Units/L Albumin 2.2 L (3.5-5.0) g/dL - ABG Interpretation ABG results: PT/INR, D-dimer PT 13.0 Seconds (9.4-12.1) H 01/13/17 02:30 - Impressions Impressions Abdomen/Pelvis/Transvag US 01/13/17 00:00 IMPRESSION: 1. No appreciable fluid seen on the ultrasound. No thoracentesis performed. He is to undergo CT scan for further evaluation and possible drainage. D/ / Dimas Balderas MD / Dimas Balderas MD Interpreting Provider: Dimas Balderas MD Thoracentesis 01/13/17 00:00 IMPRESSION: 1. CT guided right chest tube placement as discussed above. Once the fluid has been analyzed the tube can be removed if he has no signs of empyema. D/ / Dimas Balderas MD / Dimas Balderas MD Interpreting Provider: Dimas Balderas MD Consult Discharge Plan - Plan [facility]errals: [facility] [Primary Care Provider] -
[2017-01-13] MEDS: 0.9 % Sodium Chloride 1,000 ML IVC SCH (17:15)
[2017-01-13 18:40] LABS: Appearance of Pleural Fl Bloody (Clear)
[2017-01-13] MEDS: Melatonin 3 MG TABLET PO SCH (20:42)
[2017-01-13] MEDS: risperiDONE 1 MG TABLET PO SCH (20:42)
[2017-01-14] MEDS ORDERED: Melatonin 3 MG TABLET PO ONE (00:05)
[2017-01-14] MEDS: Piperacillin/Tazobactam 3.375 GM in 0.9 % Sodium Chloride Mini Bag 100 ML IVPB SCH ×2 (00:07→10:59)
[2017-01-14] MEDS: MethylPREDNISolone 40 MG/ML VIAL IVP SCH ×2 (00:07→09:13)
[2017-01-14] MEDS: Vancomycin 1,250 MG in D5% in Water 250 ML IVPB SCH ×2 (05:32→18:08)
[2017-01-14] MEDS: Levothyroxine 25 MCG TABLET PO SCH (05:32)
[2017-01-14] MEDS: *HR* Morphine 2 MG/ML SYRINGE IVP PRN ×3 (05:36→21:00)
[2017-01-14] MEDS ORDERED: Aminoglycoside Consult 1 EACH MC ONE (07:29)
--- NOTE | 2017-01-14 08:15 | Pulmonology Progress Note ---
<Bernabe Liang - Last Filed: 01/14/17 10:42> Date of Encounter: 01/14/17 Time of Encounter: 08:15 Assessment and Plan (1) HCAP (healthcare-associated pneumonia) Current Visit: Yes Status: Acute Continue broad spectrum antibiotics/bronchodilators/steroids. Continue cough suppressant Repeat CT chest reveals areas of consolidation in the bilateral lower lobes and lingula have mildly improved since the prior examination. De-escalate antibiotics based on culture results (2) Loculated pleural effusion Current Visit: Yes Status: Acute Repeat CT chest reveals Right pigtail pleural catheter terminates within the loculated right pleural effusion. Fluid within the collection has been nearly completely drained. The collection demonstrates multiple internal septations, is now predominantly air-filled, but has not significantly changed in size since the prior examination. Pleural fluid pH 8, bloody appearance, 80% lymphocytes, Lights Criteria indicative of exudative effusion. Cell count and pleural fluid culture pending Chest tube placed on continuous wall suction at 20cm Case discussed with Cardiothoracic surgery, will continue wall suction. If there is incomplete resolution will try to intrapleural fibrinolytics and DNAase. If not resolved after that will consult CT surgery for possible decortication. Continue to monitor (3) COPD (chronic obstructive pulmonary disease) Current Visit: Yes Status: Chronic Acute COPD exacerbation Antibiotics/bronchodilators/steroids. Qualifiers: COPD type: COPD with acute exacerbation Qualified Code(s): J44.1 - Chronic obstructive pulmonary disease with (acute) exacerbation (4) Hemoptysis Current Visit: Yes Status: Resolved Blood Streaked sputum x1 Resolved. No need for bronchoscopy (5) Dilated tracheostomy stoma Current Visit: Yes Status: Acute Tracheostomy stoma since 1999 (6) Tobacco dependence Current Visit: Yes Status: Chronic Tobacco cessation Subjective Principal diagnosis: SOB Interval history: Patient seen and examined sitting up in bed eating breakfast. Patient had repeat CT chest this AM and reports feeling much improved. His only complaint is sharp pain at right chest tube site that improved after Morphine administration. He denies hemoptysis. Objective PUL Vital signs: Last Vital Signs Temp 97.7 F 01/14/17 07:15 Pulse 90 01/14/17 07:15 Resp 17 01/14/17 07:15 BP 186/107 01/14/17 07:15 Pulse Ox 95 01/14/17 07:15 General appearance: no acute distress (communicates with pen and paper) Eyes: nonicteric ENT: oropharynx moist Mallampati (class): 3 Neck: supple (tracheostomy stoma without signs of infection) Effort: normal Auscultation: right: diminished breath sounds Percussion: bilateral: not dull Cardiovascular: regular rate and rhythm Gastrointestinal: normoactive bowel sounds, soft, non-distended Integumentary: normal Extremities: no cyanosis, edema (1+) Musculoskeletal: no deformities normal mental status, non-focal exam mood appropriate, affect normal Results - Laboratory Findings CBC and BMP: 01/13/17 02:30 01/13/17 02:30 PT/INR, D-dimer PT 13.0 Seconds (9.4-12.1) H 01/13/17 02:30 Abnormal lab findings: Abnormal lab results RBC 3.61 M/mcL (4.19-5.50) L 01/13/17 02:30 Hgb 8.8 g/dL (12.9-16.9) L 01/13/17 02:30 Hct 29.8 % (37.5-50.1) L 01/13/17 02:30 MCV 82.5 fL (83.0-100.0) L 01/13/17 02:30 MCH 24.4 pg (28.0-33.3) L 01/13/17 02:30 MCHC 29.5 g/dL (31.6-35.5) L 01/13/17 02:30 RDW 14.6 % (11.5-14.5) H 01/13/17 02:30 Nucleated RBCs/100 WBC 0.4 /100 WBC (0) H 01/13/17 02:30 PT 13.0 Seconds (9.4-12.1) H 01/13/17 02:30 Carbon Dioxide 30 mEq/L (19-29) H 01/13/17 02:30 Calcium 8.0 mg/dL (8.6-10.8) L 01/13/17 02:30 B-Natriuretic Peptide 489 pg/mL (0-100) H 01/13/17 02:30 Albumin 2.2 g/dL (3.5-5.0) L 01/13/17 02:30 Globulin 5.1 g/dL (2.4-3.5) H 01/13/17 02:30 Albumin/Globulin Ratio 0.4 (1.1-2.2) L 01/13/17 02:30 HDL Cholesterol 25 mg/dL (40-59) L 01/13/17 02:30 Pleural Appearance Bloody (Clear) A 01/13/17 14:14 - Microbiology Findings Microbiology Findings: Microbiology, Last 48 Hours 01/13/17 14:14 Gram Stain - Final Pleural Fluid - Diagnostic Findings CT scan - chest: report reviewed, image reviewed - Clinical Findings Intake & Output: Intake & Output 01/13/17 01/14/17 01/14/17 23:59 07:59 15:59 Intake Total 825 / 825 240 / 240 Output Total 650 / 650 1974 / 1974 Balance 175 / 175 -1735 / -1735 Weight 93.803 kg Consult Discharge Plan - Plan [facility]errals: [facility] [Primary Care Provider] - <Mik Marie - Last Filed: 01/14/17 18:03> Date of Encounter: 01/14/17 Objective PUL Vital signs: Last Vital Signs Temp 98.1 F 01/14/17 16:05 Pulse 105 01/14/17 16:05 Resp 18 01/14/17 16:05 BP 169/89 01/14/17 16:05 Pulse Ox 93 01/14/17 16:05 Results - Laboratory Findings CBC and BMP: 01/13/17 02:30 01/13/17 02:30 PT/INR, D-dimer PT 13.0 Seconds (9.4-12.1) H 01/13/17 02:30 Abnormal lab findings: Abnormal lab results RBC 3.61 M/mcL (4.19-5.50) L 01/13/17 02:30 Hgb 8.8 g/dL (12.9-16.9) L 01/13/17 02:30 Hct 29.8 % (37.5-50.1) L 01/13/17 02:30 MCV 82.5 fL (83.0-100.0) L 01/13/17 02:30 MCH 24.4 pg (28.0-33.3) L 01/13/17 02:30 MCHC 29.5 g/dL (31.6-35.5) L 01/13/17 02:30 RDW 14.6 % (11.5-14.5) H 01/13/17 02:30 Nucleated RBCs/100 WBC 0.4 /100 WBC (0) H 01/13/17 02:30 PT 13.0 Seconds (9.4-12.1) H 01/13/17 02:30 Carbon Dioxide 30 mEq/L (19-29) H 01/13/17 02:30 Calcium 8.0 mg/dL (8.6-10.8) L 01/13/17 02:30 B-Natriuretic Peptide 489 pg/mL (0-100) H 01/13/17 02:30 Albumin 2.2 g/dL (3.5-5.0) L 01/13/17 02:30 Globulin 5.1 g/dL (2.4-3.5) H 01/13/17 02:30 Albumin/Globulin Ratio 0.4 (1.1-2.2) L 01/13/17 02:30 HDL Cholesterol 25 mg/dL (40-59) L 01/13/17 02:30 - Microbiology Findings Microbiology Findings: Microbiology, Last 48 Hours 01/13/17 14:14 Body Fluid Culture - Preliminary Pleural Fluid 01/13/17 14:14 Gram Stain - Final Pleural Fluid - Clinical Findings Intake & Output: Intake & Output 01/14/17 01/14/17 01/14/17 07:59 15:59 23:59 Intake Total 340 / 340 980 / 980 Output Total 1974 350 / 350 Balance -1635 / -1635 630 / 630 Weight 93.803 kg - Attending Attestation I saw the patient with the resident agree with History and Physical exam findings. Labs and Radiology were reviewed Loculated pleural effusion : yesterday thinking it was empyema after the gram stain and prelim culture results most likely this effusion is looks like long standing loculated parapneumonic effusion with septations the pig tail has drained most of the fluid now filled with air will continue chest tube to continuous wall suction reviewed the imaging with agrees with above plan since the prelim culture doesnt look like empyema might not need long term care administrator therapy will wait for final cultures Hempotysis : Patient hemoptysis resolved most likely due to underlying pneumonia no need for bronchoscopy for now HCAP : To continue the broad spectrum antibiotics .Will deescalate based on cultures . COPD exacerbation : To continue Bronchodilators and steroids.
[2017-01-14] MEDS: Gabapentin 400 MG CAPSULE PO SCH ×3 (09:12→20:56)
[2017-01-14] MEDS: Levofloxacin 750 MG/150 ML 750 MG/150 ML BAG IVPB SCH (09:13)
[2017-01-14] MEDS: Isosorbide MONOnitrate (24 HR) 60 MG TAB.ER.24H PO SCH (09:15)
[2017-01-14 11:12] LABS: RBC,Pleural Fluid < 0.002 M/mcL
[2017-01-14 12:12] LABS: Appearance of Pleural Fl Clear (Clear)
[2017-01-14] MEDS: amLODIPine 5 MG TABLET PO SCH (14:28)
--- NOTE | 2017-01-14 15:52 | Internal Med Progress Note ---
<Sunil Veronica T - Last Filed: 01/14/17 16:24> Date of Encounter: 01/14/17 - Constitutional Vitals: Temp Pulse Resp BP Pulse Ox 98.1 F 105 18 169/89 93 01/14/17 16:05 01/14/17 16:05 01/14/17 16:05 01/14/17 16:05 01/14/17 16:05 Internal Medicine: Result - Labs CBC & Chem 7: 01/13/17 02:30 01/13/17 02:30 - ABG Interpretation ABG results: PT/INR, D-dimer PT 13.0 Seconds (9.4-12.1) H 01/13/17 02:30 - Impressions Impressions Abdomen/Pelvis/Transvag US 01/13/17 00:00 IMPRESSION: 1. No appreciable fluid seen on the ultrasound. No thoracentesis performed. He is to undergo CT scan for further evaluation and possible drainage. D/ / Dimas Balderas MD / Dimas Balderas MD Interpreting Provider: Dimas Balderas MD Thoracentesis 01/13/17 00:00 IMPRESSION: 1. CT guided right chest tube placement as discussed above. Once the fluid has been analyzed the tube can be removed if he has no signs of empyema. D/ / Dimas Balderas MD / Dimas Balderas MD Interpreting Provider: Dimas Balderas MD Chest CT 01/14/17 08:00 IMPRESSION: Right pigtail pleural catheter terminates within the loculated right pleural effusion. Fluid within the collection has been nearly completely drained. The collection demonstrates multiple internal septations, is now predominantly air-filled, but has not significantly changed in size since the prior examination. Areas of consolidation in the bilateral lower lobes and lingula have mildly improved since the prior examination. D/ / 01/14/2017 09:22:03 Alena Barrera MD / Erendira Palacios Interpreting Provider: Alena Barrera MD Consult Discharge Plan - Plan [facility]errals: [facility] Care Provider[facility] - - Attending Attestation I independently saw and examined this patient on 01/14/17, plan of care is as detailed in the resident physician's documentation 11 M with HCAP and parapneumonic effusion No new complains Chest tube is not draining much, pulmonology is following, blood prsure is uncontrolled, tracheostomy site clean and dry. Labs reviewed Continue current management Start antihypertensives Rest as in resident physician's documentation <Ronald Patel - Last Filed: 01/14/17 16:42> Date of Encounter: 01/14/17 Time of Encounter: 10:45 - Assessment and plan (1) HCAP (healthcare-associated pneumonia) Current Visit: Yes Status: Acute Assessment and plan: CTA on 01/12/17: demonstrated pneumonia and loculated pleural effusion on the right side. Blood CX negative. Repeat CT of the chest on 01/14/17: reveals areas of consolidation in the bilateral lower lobes and lingula have mildly improved since prior examination. Per pulmonology: Pulmonology recommends de-escalating antibiotics based on culture results. WC this mornin.5 Plan: -Day 3 of broad spectrum abx: Levaquin 750 mg IV daily, Vancomycin 1250 IV Q12, Zosyn 3.375 IV Q8 -Prednisone PO 40mg Daily -Duoneb 3ml IH Q4 -Vital sign assessment Q4 (2) Loculated pleural effusion Current Visit: Yes Status: Acute Assessment and plan: Repeat CT: Right pigtail pleural catheter terminates within loculated right- sided pleural effusion. Diagnostic thoracentesis was performed on 01/13/17. Per thoracentesis report, no bacteria were identified. Pleural fluid had a pH of 8, bloody appearance, 80% lymphocytes; light criteria indicative of exudative effusion. Per pulmonology: -Fluid collection has been nearly completely drained. -Collection demonstrates multiple internal septations, is now predominantly air- filled, has not significantly changed in size since examination. -Chest tube placed on continuous wall suction at 20 cm -If there is incomplete resolution, will try intra-pleural fibrinolytics and DNAase. -If not resolved after this, CT surgery will be consulted for possible decortication. (3) COPD (chronic obstructive pulmonary disease) Current Visit: Yes Status: Chronic Assessment and plan: Plan: -Patient was switched from Solu-Medrol 40 mg every 12 to prednisone 40 mg daily. -DuoNeb 3ml IH Q4 Qualifiers: COPD type: COPD with acute exacerbation Qualified Code(s): J44.1 - Chronic obstructive pulmonary disease with (acute) exacerbation (4) Hypertension Current Visit: Yes Status: Acute Assessment and plan: Patient had an elevated blood pressure this morning at 186/107. Does not take any medications at home for hypertension. Plan: -Amlodipine 10 mg PO daily Qualifiers: Qualified Code(s): I10 - Essential (primary) hypertension (5) Hemoptysis Current Visit: Yes Status: Resolved Assessment and plan: Patient has not had hemoptysis since his admission. Per pulmonology, there is no need for bronchoscopy. (6) Dilated tracheostomy stoma Current Visit: Yes Status: Acute Assessment and plan: Tracheostomy since 1999 Stable - Subjective Interval history: Patient is a 71-year-old male, resident at the [facility] psych unit for hallucinations. PMH of COPD, tracheostomy. Presented on 01/12/17 with a cough and vomiting of small amount of blood. CTA demonstrated pneumonia and loculated pleural effusion on the R side concerning for possible empyema. Pulmonology was consulted; recommended broad spectrum abx: vancomycin, zosyn, levaquin, as well as Solu-Medrol and duo nebs. Blood culture was negative. Diagnostic thoracentesis was performed on 01/13/17. According to thoracentesis report, no bacteria were identified. WC on admission: 5.2. today WC is 5.5. Patient was seen and examined at bedside this morning. Patient has some difficulty speaking due to tracheostomy, but is capable of whispering, and is alert and oriented. He states that he feels much better than when he did upon admission. He states that he has had no episodes of hemoptysis since his admission. He reports that this is "a one-time deal" he denies fever, chills, shortness of breath, nausea, vomiting, and cough. He reports some mild pain at the site of his thoracentesis. He has no other complaints at this time. - Constitutional Vitals: Temp Pulse Resp BP Pulse Ox 98.1 F 93 17 186/107 96 01/14/17 11:01 01/14/17 11:01 01/14/17 11:01 01/14/17 07:15 01/14/17 11:01 General appearance: Present: A&O X 3, pleasant, no acute distress, answers questions appropriately - Head Head exam: Present: atraumatic, normocephalic - Eye Eye exam: Present: PERRL, conjuntiva pink, sclera anicteric Pupils: Present: PERRL - Neck Neck exam general surgery: Absent: lymphadenopathy Additional comments: Tracheostomy observed - Respiratory Respiratory exam: Present: CTAB. Absent: accessory muscle use, rales, rhonchi, wheezes - Cardiovascular Cardiovascular exam: Present: RRR, +S1, +S2. Absent: diastolic murmur, gallop, rubs, systolic murmur - Extremities Exam Extremities exam: Present: warm, radial pulses palpable and symmetrical. Absent : calf tenderness, cyanotic, pedal edema - Skin Skin exam: Present: dry, intact Internal Medicine: Result - Labs CBC & Chem 7: 01/13/17 02:30 01/13/17 02:30 - ABG Interpretation ABG results: PT/INR, D-dimer PT 13.0 Seconds (9.4-12.1) H 01/13/17 02:30 - Impressions Impressions Abdomen/Pelvis/Transvag US 01/13/17 00:00 IMPRESSION: 1. No appreciable fluid seen on the ultrasound. No thoracentesis performed. He is to undergo CT scan for further evaluation and possible drainage. D/ / Dimas Balderas MD / Dimas Balderas MD Interpreting Provider: Dimas Balderas MD Thoracentesis 01/13/17 00:00 IMPRESSION: 1. CT guided right chest tube placement as discussed above. Once the fluid has been analyzed the tube can be removed if he has no signs of empyema. D/ / Dimas Balderas MD / Dimas Balderas MD Interpreting Provider: Dimas Balderas MD Chest CT 01/14/17 08:00
[2017-01-14] MEDS: Piperacillin/Tazobactam 3.375 GM/200 ML BAG IVPB SCH (18:08)
[2017-01-14] MEDS: Melatonin 3 MG TABLET PO SCH (20:56)
[2017-01-14] MEDS: risperiDONE 1 MG TABLET PO SCH (20:57)
[2017-01-15] MEDS: Piperacillin/Tazobactam 3.375 GM/200 ML BAG IVPB SCH ×3 (00:57→16:42)
[2017-01-15 05:44] LABS: Basophils % 0.4 %; Eosinophils % 0.4 %; Hematocrit 36.1 % (37.5-50.1); Hemoglobin 10.8 g/dL (12.9-16.9); Immature Granulocytes % 0.5 % (0-4); Lymphocytes # 1.2 K/mcL (0.6-4.6); Lymphocytes % 15.5 %; Mean Corpuscular HGB Conc 29.9 g/dL (31.6-35.5); Mean Corpuscular Hemoglobin 24.3 pg (28.0-33.3); Mean Corpuscular Volume 81.1 fL (83.0-100.0); Mean Platelet Volume 9.7 fL (9.4-12.4); Monocytes # 0.4 K/mcL (0.0-1.3); Monocytes % 5.8 %; Neutrophils # 5.9 K/mcL (1.6-8.9); Platelet Count 302 K/mcL (140-400); Red Blood Count 4.45 M/mcL (4.19-5.50); Red Cell Distribution Width 15.1 % (11.5-14.5); Segmented Neutrophils % 77.4 %
[2017-01-15] MEDS: Vancomycin 1,250 MG in D5% in Water 250 ML IVPB SCH (05:44)
[2017-01-15] MEDS: Levothyroxine 25 MCG TABLET PO SCH (05:44)
[2017-01-15 05:45] LABS: BUN/Creatinine Ratio 15 (6-26); Blood Urea Nitrogen 17 mg/dL (8-26); Calcium 8.4 mg/dL (8.6-10.8); Carbon Dioxide 28 mEq/L (19-29); Chloride 103 mEq/L (98-109); Glucose 90 mg/dL (70-99); Osmolality,Calculated 285 (280-300); Potassium 4.2 mEq/L (3.5-4.5); Sodium 137 mEq/L (136-145); eGFR For African Americans > 60 (> 60); eGFR For Non-African Americans > 60 (> 60)
--- NOTE | 2017-01-15 08:22 | Pulmonology Progress Note ---
<Bernabe Liang - Last Filed: 01/15/17 09:00> Date of Encounter: 01/15/17 Time of Encounter: 08:21 Assessment and Plan (1) HCAP (healthcare-associated pneumonia) Current Visit: Yes Status: Acute Continue broad spectrum antibiotics/bronchodilators/steroids. Continue cough suppressant Repeat CT chest reveals areas of consolidation in the bilateral lower lobes and lingula have mildly improved since the prior examination. De-escalate antibiotics based on culture results (2) Loculated pleural effusion Current Visit: Yes Status: Acute Repeat CT chest reveals Right pigtail pleural catheter terminates within the loculated right pleural effusion. Fluid within the collection has been nearly completely drained. The collection demonstrates multiple internal septations, is now predominantly air-filled, but has not significantly changed in size since the prior examination. Pleural fluid pH 8, bloody appearance, 80% lymphocytes, Lights Criteria indicative of exudative effusion. Pleural fluid culture shows no growth to date Chest tube placed on continuous wall suction at 20cm. Cell count pending Case discussed with Cardiothoracic surgery, will continue wall suction. If there is incomplete resolution will try to intrapleural fibrinolytics and DNAase. If not resolved after that will consult CT surgery for possible decortication. Continue to monitor (3) Hemoptysis Current Visit: Yes Status: Resolved Blood Streaked sputum x1 Resolved. No need for bronchoscopy (4) Dilated tracheostomy stoma Current Visit: Yes Status: Acute Tracheostomy stoma since 1999 (5) COPD (chronic obstructive pulmonary disease) Current Visit: Yes Status: Chronic Acute COPD exacerbation Antibiotics/bronchodilators/steroids. Qualifiers: COPD type: COPD with acute exacerbation Qualified Code(s): J44.1 - Chronic obstructive pulmonary disease with (acute) exacerbation (6) Tobacco dependence Current Visit: Yes Status: Chronic Tobacco cessation Subjective Principal diagnosis: SOB Interval history: Patient seen and examined resting comfortably on bed. Patient reports no new c/ o and denies fever, chills, SOB, hemoptysis, or leg edema. Chest tube in place on continuos suction. Objective PUL Vital signs: Last Vital Signs Temp 97.3 F L 01/15/17 07:12 Pulse 81 01/15/17 07:12 Resp 18 01/15/17 07:12 BP 160/97 01/15/17 07:12 Pulse Ox 95 01/15/17 07:12 General appearance: no acute distress Eyes: nonicteric ENT: oropharynx moist Mallampati (class): 3 Neck: supple (tracheostomy stoma without signs of infection) Effort: normal Auscultation: right: diminished breath sounds Percussion: bilateral: not dull Cardiovascular: regular rate and rhythm Gastrointestinal: normoactive bowel sounds, non-distended Integumentary: normal Extremities: no cyanosis, no edema Musculoskeletal: no deformities Gait: normal posture normal mental status, non-focal exam mood appropriate, affect normal Results - Laboratory Findings CBC and BMP: 01/15/17 04:46 01/15/17 04:46 PT/INR, D-dimer PT 13.0 Seconds (9.4-12.1) H 01/13/17 02:30 Abnormal lab findings: Abnormal lab results Hgb 10.8 g/dL (12.9-16.9) L D 01/15/17 04:46 Hct 36.1 % (37.5-50.1) L 01/15/17 04:46 MCV 81.1 fL (83.0-100.0) L 01/15/17 04:46 MCH 24.3 pg (28.0-33.3) L 01/15/17 04:46 MCHC 29.9 g/dL (31.6-35.5) L 01/15/17 04:46 RDW 15.1 % (11.5-14.5) H 01/15/17 04:46 Nucleated RBCs/100 WBC 0.4 /100 WBC (0) H 01/13/17 02:30 PT 13.0 Seconds (9.4-12.1) H 01/13/17 02:30 Calcium 8.4 mg/dL (8.6-10.8) L 01/15/17 04:46 B-Natriuretic Peptide 489 pg/mL (0-100) H 01/13/17 02:30 Albumin 2.2 g/dL (3.5-5.0) L 01/13/17 02:30 Globulin 5.1 g/dL (2.4-3.5) H 01/13/17 02:30 Albumin/Globulin Ratio 0.4 (1.1-2.2) L 01/13/17 02:30 HDL Cholesterol 25 mg/dL (40-59) L 01/13/17 02:30 - Microbiology Findings Microbiology Findings: Microbiology, Last 48 Hours 01/13/17 14:14 Body Fluid Culture - Preliminary Pleural Fluid 01/13/17 14:14 Gram Stain - Final Pleural Fluid - Clinical Findings Intake & Output: Intake & Output 01/14/17 01/15/17 01/15/17 23:59 07:59 15:59 Intake Total 450 / 450 Output Total 300 / 300 1058 / 1058 Balance 150 / 150 -1058 / -1058 Weight 94.801 kg Consult Discharge Plan - Plan [facility]errals: [facility] [Primary Care Provider[facility] - <Mik Marie - Last Filed: 01/15/17 19:18> Date of Encounter: 01/15/17 Objective PUL Vital signs: Last Vital Signs Temp 98.0 F 01/15/17 19:00 Pulse 91 01/15/17 19:00 Resp 22 01/15/17 19:00 BP 149/94 01/15/17 19:00 Pulse Ox 94 01/15/17 19:00 Results - Laboratory Findings CBC and BMP: 01/15/17 04:46 01/15/17 04:46 PT/INR, D-dimer PT 13.0 Seconds (9.4-12.1) H 01/13/17 02:30 Abnormal lab findings: Abnormal lab results Hgb 10.8 g/dL (12.9-16.9) L D 01/15/17 04:46 Hct 36.1 % (37.5-50.1) L 01/15/17 04:46 MCV 81.1 fL (83.0-100.0) L 01/15/17 04:46 MCH 24.3 pg (28.0-33.3) L 01/15/17 04:46 MCHC 29.9 g/dL (31.6-35.5) L 01/15/17 04:46 RDW 15.1 % (11.5-14.5) H 01/15/17 04:46 Nucleated RBCs/100 WBC 0.4 /100 WBC (0) H 01/13/17 02:30 PT 13.0 Seconds (9.4-12.1) H 01/13/17 02:30 Calcium 8.4 mg/dL (8.6-10.8) L 01/15/17 04:46 B-Natriuretic Peptide 489 pg/mL (0-100) H 01/13/17 02:30 Albumin 2.2 g/dL (3.5-5.0) L 01/13/17 02:30 Globulin 5.1 g/dL (2.4-3.5) H 01/13/17 02:30 Albumin/Globulin Ratio 0.4 (1.1-2.2) L 01/13/17 02:30 HDL Cholesterol 25 mg/dL (40-59) L 01/13/17 02:30 - Microbiology Findings Microbiology Findings: Microbiology, Last 48 Hours 01/13/17 14:14 Body Fluid Culture - Preliminary Pleural Fluid 01/13/17 14:14 Gram Stain - Final Pleural Fluid - Clinical Findings Intake & Output: Intake & Output 01/15/17 01/15/17 01/15/17 07:59 15:59 23:59 Intake Total 200 / 200 840 / 840 Output Total 1058 / 1058 445 / 445 610 / 610 Balance -858 / -858 395 / 395 -610 / -610 Weight 94.801 kg - Attending Attestation I saw the patient with the resident agree with History and Physical exam findings. Labs and Radiology were reviewed Loculated pleural effusion : Parapneumonic effusion no signs of empyema nothing growing in culture , effusion was drained by pigtail catheter still darining some fluid which is turbid in nature with minimal air leak will leave for another day repeat the CT tomorrow . Hempotysis : Patient hemoptysis resolved most likely due to underlying pneumonia no need for bronchoscopy for now HCAP : To continue the broad spectrum antibiotics .Will deescalate based on cultures . COPD exacerbation : To continue Bronchodilators and steroids. Patient was updated about the progress will follow .
[2017-01-15] MEDS: Levofloxacin 750 MG/150 ML 750 MG/150 ML BAG IVPB SCH (08:44)
[2017-01-15] MEDS: Gabapentin 400 MG CAPSULE PO SCH ×3 (08:45→20:20)
[2017-01-15] MEDS: amLODIPine 5 MG TABLET PO SCH (08:45)
[2017-01-15] MEDS: predniSONE 20 MG TABLET PO SCH (08:45)
[2017-01-15] MEDS: Isosorbide MONOnitrate (24 HR) 60 MG TAB.ER.24H PO SCH (08:45)
[2017-01-15] MEDS: *HR* Morphine 2 MG/ML SYRINGE IVP PRN ×2 (10:37→20:24)
[2017-01-15] MEDS ORDERED: Isosorbide MONOnitrate (24 HR) 30 MG TAB.ER.24H PO ONE (11:21)
--- NOTE | 2017-01-15 15:24 | Internal Med Progress Note ---
<Sunil Veronica Felix - Last Filed: 01/15/17 16:00> Date of Encounter: 01/15/17 - Constitutional Vitals: Temp Pulse Resp BP Pulse Ox 97.8 F 88 18 108/69 95 01/15/17 11:32 01/15/17 11:32 01/15/17 11:32 01/15/17 11:32 01/15/17 11:32 Internal Medicine: Result - Labs CBC & Chem 7: 01/15/17 04:46 01/15/17 04:46 Labs: Short CBC 01/15/17 Range/Units 04:46 WBC 7.6 (4.3-11.1) K/mcL Hgb 10.8 L D (12.9-16.9) g/dL Hct 36.1 L (37.5-50.1) % Plt Count 302 (140-400) K/mcL Neutrophils # 5.9 (1.6-8.9) K/mcL BMP 01/15/17 04:46 Sodium 137 Potassium 4.2 Chloride 103 Carbon Dioxide 28 BUN 17 Creatinine 1.12 Glucose 90 Calcium 8.4 L - ABG Interpretation ABG results: PT/INR, D-dimer PT 13.0 Seconds (9.4-12.1) H 01/13/17 02:30 Consult Discharge Plan - Plan [facility]errals: [facility] [Primary Care Provider] - - Attending Attestation I independently saw and examined this patient on 01/15/17, plan of care is as detailed in the resident physician's documentation 71 M with HCAP and parapneumonic effusion No new complains Chest exam is improved aeration in the RLL. Chest tube effluent ~70cc at time of review, repeat CT 01/14 noted. Pulmonology eval noted Labs reviewed-Stable no growth in blood or pleural fluid Day 4 of Levaquin/Zosyn/Vanco. D/C Vanco, Continue Levaquin/Zosyn/prednisone and duonebs. Continue amlodipine, Imdur. Pulm eval appreciated Rest as in resident physician's documentation <Ronald Patel - Last Filed: 01/15/17 16:18> Date of Encounter: 01/15/17 Time of Encounter: 10:45 - Assessment and plan (1) HCAP (healthcare-associated pneumonia) Current Visit: Yes Status: Acute Assessment and plan: CTA on 01/12/17: demonstrated pneumonia and loculated pleural effusion on the right side. Blood CX negative. Repeat CT of the chest on 01/14/17: reveals areas of consolidation in the bilateral lower lobes and lingula have mildly improved since prior examination. WC this mornin.6 Plan: -Day 4 of abx: Levaquin 750 mg IV daily, Zosyn 3.375 IV Q8 -Vancomycin was discontinued on 01/15/17. -Prednisone PO 40mg Daily -Duoneb 3ml IH Q4 -Vital sign assessment Q4 (2) Loculated pleural effusion Current Visit: Yes Status: Acute Assessment and plan: Repeat CT: Right pigtail pleural catheter terminates within loculated right- sided pleural effusion. Diagnostic thoracentesis was performed on 01/13/17. Per thoracentesis report, no bacteria were identified. Pleural fluid had a pH of 8, bloody appearance, 80% lymphocytes; light criteria indicative of exudative effusion. Per pulmonology: -Fluid collection has been nearly completely drained. -Collection demonstrates multiple internal septations, is now predominantly air- filled, has not significantly changed in size since examination. -Chest tube placed on continuous wall suction at 20 cm -If there is incomplete resolution, will try intra-pleural fibrinolytics and DNAase. -If not resolved after this, CT surgery will be consulted for possible decortication. (3) COPD (chronic obstructive pulmonary disease) Current Visit: Yes Status: Chronic Assessment and plan: Plan: -Patient was switched from Solu-Medrol 40 mg every 12 to prednisone 40 mg daily. -DuoNeb 3ml IH Q4 Qualifiers: COPD type: COPD with acute exacerbation Qualified Code(s): J44.1 - Chronic obstructive pulmonary disease with (acute) exacerbation (4) Hypertension Current Visit: Yes Status: Acute Assessment and plan: Patient had an elevated blood pressure yesterday at 186/107; Amlodipine 10 mg started. Patient's blood pressure this morning was 160/97. Plan: -Amlodipine 10 mg PO daily Qualifiers: Qualified Code(s): I10 - Essential (primary) hypertension (5) Hemoptysis Current Visit: Yes Status: Resolved Assessment and plan: Patient has not had hemoptysis since his admission. Per pulmonology, there is no need for bronchoscopy. (6) Dilated tracheostomy stoma Current Visit: Yes Status: Acute Assessment and plan: Tracheostomy since 1999 Stable - Subjective Interval history: Patient was seen and examined at bedside this morning. He denies having any respiratory distress. Denies having any pain or hemoptysis. States that he is feeling well. He has no complaints at this time. Vancomycin was discontinued this morning. - Constitutional Vitals: Temp Pulse Resp BP Pulse Ox 97.8 F 88 18 108/69 95 01/15/17 11:32 01/15/17 11:32 01/15/17 11:32 01/15/17 11:32 01/15/17 11:32 General appearance: Present: A&O X 3, pleasant, no acute distress, answers questions appropriately - Head Head exam: Present: atraumatic, normocephalic - Eye Eye exam: Present: PERRL, conjuntiva pink, sclera anicteric Pupils: Present: PERRL - Neck Neck exam general surgery: Present: supple, trachea midline. Absent: lymphadenopathy - Respiratory Respiratory exam: Present: CTAB. Absent: accessory muscle use, rales, rhonchi, wheezes - Cardiovascular Cardiovascular exam: Present: RRR, +S1, +S2. Absent: diastolic murmur, gallop, rubs, systolic murmur - Skin Skin exam: Present: dry, intact Internal Medicine: Result - Labs CBC & Chem 7: 01/15/17 04:46 01/15/17 04:46 Labs: Short CBC 01/15/17 Range/Units 04:46 WBC 7.6 (4.3-11.1) K/mcL Hgb 10.8 L D (12.9-16.9) g/dL Hct 36.1 L (37.5-50.1) % Plt Count 302 (140-400) K/mcL Neutrophils # 5.9 (1.6-8.9) K/mcL BMP 01/15/17 04:46 Sodium 137 Potassium 4.2 Chloride 103 Carbon Dioxide 28 BUN 17 Creatinine 1.12 Glucose 90 Calcium 8.4 L - ABG Interpretation ABG results: PT/INR, D-dimer PT 13.0 Seconds (9.4-12.1) H 01/13/17 02:30
[2017-01-15] MEDS: *HR* OxyCODONE Immed Rel 5 MG TABLET PO PRN (16:41)
[2017-01-15] MEDS: risperiDONE 1 MG TABLET PO SCH (20:19)
[2017-01-15] MEDS: Melatonin 3 MG TABLET PO SCH (20:20)
[2017-01-16] MEDS: Piperacillin/Tazobactam 3.375 GM/200 ML BAG IVPB SCH ×3 (00:10→16:49)
[2017-01-16] MEDS: Levothyroxine 25 MCG TABLET PO SCH (06:32)
[2017-01-16] MEDS: *HR* Morphine 2 MG/ML SYRINGE IVP PRN ×4 (08:17→22:39)
[2017-01-16] MEDS ORDERED: Isosorbide MONOnitrate (24 HR) 30 MG TAB.ER.24H PO SCH (09:00)
[2017-01-16] MEDS: Isosorbide MONOnitrate (24 HR) 60 MG TAB.ER.24H PO SCH (10:13)
[2017-01-16] MEDS: predniSONE 20 MG TABLET PO SCH (10:13)
[2017-01-16] MEDS: amLODIPine 5 MG TABLET PO SCH (10:13)
[2017-01-16] MEDS: Gabapentin 400 MG CAPSULE PO SCH ×3 (10:13→22:35)
--- NOTE | 2017-01-16 11:52 | Pulmonology Progress Note ---
Date of Encounter: 01/16/17 Time of Encounter: 11:30 Assessment and Plan (1) Pleural effusion exudative Current Visit: Yes Status: Acute Loculated pleural effusion concern for empyema had a pig tail catheter put in now the fluid has drained almost completely in the CT scan which is replaced with air after 2 days of chest tube suction no change in pneumothorax will discuss with Cardiothoracic surgery regarding further any intervention , no role of intrapleural fibrinolytics as the fluid is almost drained . (2) COPD (chronic obstructive pulmonary disease) Current Visit: Yes Status: Chronic Symptoms getting better continue the current regimen when he is getting discharged will send him home on short steroid taper Qualifiers: COPD type: COPD with acute exacerbation Qualified Code(s): J44.1 - Chronic obstructive pulmonary disease with (acute) exacerbation (3) HCAP (healthcare-associated pneumonia) Current Visit: Yes Status: Acute Agree with deescalation on discharge to complete a 14 day course of Levofloxacin Subjective Principal diagnosis: SOB Interval history: Patient is pretty much asymptomatic no cough or shortness of breadth , no hemoptysis Objective PUL Vital signs: Last Vital Signs Temp 98.1 F 01/16/17 11:28 Pulse 90 01/16/17 11:28 Resp 19 01/16/17 11:28 BP 156/94 01/16/17 11:28 Pulse Ox 93 01/16/17 11:28 Auscultation: right: diminished breath sounds (basilar air entry diminished ) Results - Laboratory Findings CBC and BMP: 01/15/17 04:46 01/15/17 04:46 PT/INR, D-dimer PT 13.0 Seconds (9.4-12.1) H 01/13/17 02:30 Abnormal lab findings: Abnormal lab results Hgb 10.8 g/dL (12.9-16.9) L D 01/15/17 04:46 Hct 36.1 % (37.5-50.1) L 01/15/17 04:46 MCV 81.1 fL (83.0-100.0) L 01/15/17 04:46 MCH 24.3 pg (28.0-33.3) L 01/15/17 04:46 MCHC 29.9 g/dL (31.6-35.5) L 01/15/17 04:46 RDW 15.1 % (11.5-14.5) H 01/15/17 04:46 Nucleated RBCs/100 WBC 0.4 /100 WBC (0) H 01/13/17 02:30 PT 13.0 Seconds (9.4-12.1) H 01/13/17 02:30 Calcium 8.4 mg/dL (8.6-10.8) L 01/15/17 04:46 B-Natriuretic Peptide 489 pg/mL (0-100) H 01/13/17 02:30 Albumin 2.2 g/dL (3.5-5.0) L 01/13/17 02:30 Globulin 5.1 g/dL (2.4-3.5) H 01/13/17 02:30 Albumin/Globulin Ratio 0.4 (1.1-2.2) L 01/13/17 02:30 HDL Cholesterol 25 mg/dL (40-59) L 01/13/17 02:30 - Microbiology Findings Microbiology Findings: Microbiology, Last 48 Hours 01/13/17 14:14 Body Fluid Culture - Final Pleural Fluid - Clinical Findings Intake & Output: Intake & Output 01/15/17 01/16/17 01/16/17 23:59 07:59 15:59 Intake Total 200 / 200 200 / 200 580 / 580 Output Total 610 / 610 505 / 505 Balance -410 / -410 -305 / -305 580 / 580 Consult Discharge Plan - Plan [facility]errals: [facility] [Primary Care Provider] - ([facility])
[2017-01-16] MEDS: Levofloxacin 750 MG/150 ML 750 MG/150 ML BAG IVPB SCH (13:11)
--- NOTE | 2017-01-16 13:18 | Internal Med Progress Note ---
<Sunil Veronica T - Last Filed: 01/16/17 13:49> Date of Encounter: 01/16/17 - Constitutional Vitals: Temp Pulse Resp BP Pulse Ox 98.1 F 90 19 156/94 93 01/16/17 11:28 01/16/17 11:28 01/16/17 11:28 01/16/17 11:28 01/16/17 11:28 Internal Medicine: Result - Labs CBC & Chem 7: 01/15/17 04:46 01/15/17 04:46 - ABG Interpretation ABG results: PT/INR, D-dimer PT 13.0 Seconds (9.4-12.1) H 01/13/17 02:30 - Impressions Impressions Chest CT 01/14/17 08:00 IMPRESSION: Right pigtail pleural catheter terminates within the loculated right pleural effusion. Fluid within the collection has been nearly completely drained. The collection demonstrates multiple internal septations, is now predominantly air-filled, but has not significantly changed in size since the prior examination. Areas of consolidation in the bilateral lower lobes and lingula have mildly improved since the prior examination. D/ / 01/14/2017 09:22:03 Alena Barrera MD / Erendira Palacios Interpreting Provider: Alena Barrera MD Chest CT 01/16/17 11:11 IMPRESSION: 1. No significant change in the loculated right pleural collection consisting mostly of gas and a small amount of fluid. Right pleural catheter remains within this collection. 2. Bibasilar opacities are likely atelectasis. D/ / Martín Mcbride MD / Martín Mcbride MD Interpreting Provider: Martín Mcbride MD Consult Discharge Plan - Plan [facility]errals: [facility] Care Provider[facility] - ([facility]) - Attending Attestation I independently saw and examined this patient on 01/16/17, plan of care is as detailed in the resident physician's documentation 71 M with HCAP and parapneumonic effusion No new complains Chest exam is improved aeration in the RLL. Chest tube effluent ~70cc at time of review, repeat CT 01/14 noted. Pulmonology eval noted 01/15 Today he remains pleasant and complains of tightness of his LE. Physical exam: VSS, NAD. HEENT: Unremarkable. Chest with decreased air entry RLL. No wheezes. Heart sounds S1, S2 only Repeat Chest CT done this morning shows no change in loculated pleural effusion which consisted mostly of gas and small amount of fluid, other Labs reviewed- Stable no growth in blood or pleural fluid Day 5 of Levaquin/Zosyn. Vanco discontinued 01/15. Continue Levaquin/Zosyn/prednisone and duonebs. Continue amlodipine, Imdur. Pulm eval pendng today, patient may need CT surgery Rest as in resident physician's documentation <Ronald Patel - Last Filed: 01/16/17 15:38> Date of Encounter: 01/16/17 Time of Encounter: 08:15 - Assessment and plan (1) HCAP (healthcare-associated pneumonia) Current Visit: Yes Status: Acute Assessment and plan: CTA on 01/12/17: demonstrated pneumonia and loculated pleural effusion on the right side. Blood CX negative. Repeat CT of the chest on 01/14/17: reveals areas of consolidation in the bilateral lower lobes and lingula have mildly improved since prior examination. Repeat CT chest ordered today. WC this mornin.6 Plan: -Day 5 of abx: Levaquin 750 mg IV daily, Zosyn 3.375 IV Q8 -Vancomycin was discontinued on 01/15/17. -Prednisone PO 40mg Daily -Duoneb 3ml IH Q4 -Vital sign assessment Q4 (2) Loculated pleural effusion Current Visit: Yes Status: Acute Assessment and plan: Repeat CT: Right pigtail pleural catheter terminates within loculated right- sided pleural effusion. Diagnostic thoracentesis was performed on 01/13/17. Per thoracentesis report, no bacteria were identified. Pleural fluid had a pH of 8, bloody appearance, 80% lymphocytes; light criteria indicative of exudative effusion. Per pulmonology: -Fluid collection has been nearly completely drained. -Collection demonstrates multiple internal septations, is now predominantly air- filled, has not significantly changed in size since examination. -Chest tube placed on continuous wall suction at 20 cm -Repeat CT scan; If effusion improved, patient may be discharged tomorrow. (3) COPD (chronic obstructive pulmonary disease) Current Visit: Yes Status: Chronic Assessment and plan: Plan: -Prednisone 40 mg daily. -DuoNeb 3ml IH Q4 Qualifiers: COPD type: COPD with acute exacerbation Qualified Code(s): J44.1 - Chronic obstructive pulmonary disease with (acute) exacerbation (4) Hypertension Current Visit: Yes Status: Acute Assessment and plan: Patient had an elevated blood pressure yesterday at 186/107; Amlodipine 10 mg started. Patient's blood pressure this morning was 163/97. Plan: -Amlodipine 10 mg PO daily Qualifiers: Qualified Code(s): I10 - Essential (primary) hypertension (5) Hemoptysis Current Visit: Yes Status: Resolved Assessment and plan: Patient has not had hemoptysis since his admission. Per pulmonology, there is no need for bronchoscopy. (6) Dilated tracheostomy stoma Current Visit: Yes Status: Acute Assessment and plan: Tracheostomy since 1999 Stable - Subjective Interval history: Patient was seen and examined at bedside this morning. He denies having any respiratory distress. Denies having any pain or hemoptysis. States that he is feeling well. He has no complaints at this time. - Constitutional Vitals: Temp Pulse Resp BP Pulse Ox 98.1 F 90 19 156/94 93 01/16/17 11:28 01/16/17 11:28 01/16/17 11:28 01/16/17 11:28 01/16/17 11:28 General appearance: Present: A&O X 3, pleasant, no acute distress, answers questions appropriately - Head Head exam: Present: atraumatic, normocephalic - Eye Eye exam: Present: PERRL, conjuntiva pink, sclera anicteric Pupils: Present: PERRL - Neck Neck exam general surgery: Present: supple, trachea midline. Absent: lymphadenopathy - Respiratory Respiratory exam: Present: CTAB. Absent: accessory muscle use, rales, rhonchi, wheezes - Cardiovascular Cardiovascular exam: Present: RRR, +S1, +S2. Absent: diastolic murmur, gallop, rubs, systolic murmur - Neurological Exam Neurological exam: Present: CN II-XII intact, oriented X3, no focal deficits. Absent: pronater drift, facial droop, speech deficit - Skin Skin exam: Present: dry, intact Internal Medicine: Result - Labs CBC & Chem 7: 01/15/17 04:46 01/15/17 04:46 - ABG Interpretation ABG results: PT/INR, D-dimer PT 13.0 Seconds (9.4-12.1) H 01/13/17 02:30 - Impressions Impressions Chest CT 01/14/17 08:00 IMPRESSION: Right pigtail pleural catheter terminates within the loculated right pleural effusion. Fluid within the collection has been nearly completely drained. The collection demonstrates multiple internal septations, is now predominantly air-filled, but has not significantly changed in size since the prior examination. Areas of consolidation in the bilateral lower lobes and lingula have mildly improved since the prior examination. D/ / 01/14/2017 09:22:03 Alena Barrera MD / Erendira Palacios Interpreting Provider: Alena Barrera MD Chest CT 01/16/17 11:11
[2017-01-16] MEDS: Melatonin 3 MG TABLET PO SCH (22:35)
[2017-01-16] MEDS: risperiDONE 1 MG TABLET PO SCH (22:36)
[2017-01-17] MEDS: Piperacillin/Tazobactam 3.375 GM/200 ML BAG IVPB SCH (01:14)
[2017-01-17] MEDS: *HR* Morphine 2 MG/ML SYRINGE IVP PRN ×4 (05:19→19:59)
[2017-01-17] MEDS: Levothyroxine 25 MCG TABLET PO SCH (05:19)
[2017-01-17 05:31] LABS: Basophils % 0.1 %; Eosinophils % 0.3 %; Hematocrit 34.7 % (37.5-50.1); Hemoglobin 10.4 g/dL (12.9-16.9); Immature Granulocytes % 0.4 % (0-4); Lymphocytes # 1.1 K/mcL (0.6-4.6); Lymphocytes % 15.5 %; Mean Corpuscular Hemoglobin 24.5 pg (28.0-33.3); Mean Corpuscular Volume 81.6 fL (83.0-100.0); Mean Platelet Volume 9.7 fL (9.4-12.4); Monocytes # 0.4 K/mcL (0.0-1.3); Monocytes % 6.3 %; Neutrophils # 5.4 K/mcL (1.6-8.9); Platelet Count 284 K/mcL (140-400); Red Blood Count 4.25 M/mcL (4.19-5.50); Red Cell Distribution Width 15.4 % (11.5-14.5); Segmented Neutrophils % 77.4 %
[2017-01-17 05:42] LABS: BUN/Creatinine Ratio 18 (6-26); Blood Urea Nitrogen 20 mg/dL (8-26); Calcium 8.1 mg/dL (8.6-10.8); Carbon Dioxide 28 mEq/L (19-29); Chloride 104 mEq/L (98-109); Glucose 94 mg/dL (70-99); Osmolality,Calculated 290 (280-300); Potassium 4.8 mEq/L (3.5-4.5); Sodium 139 mEq/L (136-145); eGFR For African Americans > 60 (> 60); eGFR For Non-African Americans > 60 (> 60)
[2017-01-17] MEDS: Gabapentin 400 MG CAPSULE PO SCH ×3 (09:43→19:58)
[2017-01-17] MEDS: Isosorbide MONOnitrate (24 HR) 60 MG TAB.ER.24H PO SCH (09:43)
[2017-01-17] MEDS: levoFLOXacin 750 MG TABLET PO SCH (09:43)
[2017-01-17] MEDS: amLODIPine 5 MG TABLET PO SCH (09:43)
[2017-01-17] MEDS: predniSONE 20 MG TABLET PO SCH (09:43)
--- NOTE | 2017-01-17 10:28 | Internal Med Progress Note ---
<Ronald Patel - Last Filed: 01/17/17 12:39> Date of Encounter: 01/17/17 Time of Encounter: 10:00 - Assessment and plan (1) HCAP (healthcare-associated pneumonia) Current Visit: Yes Status: Acute Assessment and plan: CTA on 01/12/17: demonstrated pneumonia and loculated pleural effusion on the right side. Blood CX negative. Repeat CT of the chest on 01/14/17: reveals areas of consolidation in the bilateral lower lobes and lingula have mildly improved since prior examination. Repeat CT chest on 01/16/17: No change in size of the right-sided effusion, bibasilar atelectasis. WC this mornin.0 Plan: -Day 6 of abx: Levaquin 750 mg IV daily, Zosyn 3.375 IV Q8. -Zosyn will be d/c tomorrow -Prednisone PO 40mg Daily -Duoneb 3ml IH Q4 -Vital sign assessment Q4 (2) Loculated pleural effusion Current Visit: Yes Status: Acute Assessment and plan: Repeat CT: Right pigtail pleural catheter terminates within loculated right- sided pleural effusion. Diagnostic thoracentesis was performed on 01/13/17. Per thoracentesis report, no bacteria were identified. Pleural fluid had a pH of 8, bloody appearance, 80% lymphocytes; light criteria indicative of exudative effusion. Repeat CT scan performed on 01/16/17: Demonstrated no changes in the right sided effusion. Also revealed the presence of bibasilar atelectasis. Per pulmonology progress note, will discuss with cardiothoracic surgery. Pulmonology recommends that the amount of fluid drained is less than 30 mL per 24 hours; patient is still draining too much fluid or discharge. Per pulmonology: -Fluid collection still draining; no changes in right-sided effusion according to CT scan performed on 01/16/17. -Chest tube placed on continuous wall suction (3) COPD (chronic obstructive pulmonary disease) Current Visit: Yes Status: Chronic Assessment and plan: Plan: -Prednisone 40 mg PO daily. -DuoNeb 3ml IH Q4 Qualifiers: COPD type: COPD with acute exacerbation Qualified Code(s): J44.1 - Chronic obstructive pulmonary disease with (acute) exacerbation (4) Hypertension Current Visit: Yes Status: Acute Assessment and plan: Patient's blood pressure this morning was 151/85. Plan: -Amlodipine 10 mg PO daily Qualifiers: Qualified Code(s): I10 - Essential (primary) hypertension (5) Hemoptysis Current Visit: Yes Status: Resolved Assessment and plan: Patient has not had hemoptysis since his admission. Per pulmonology, there is no need for bronchoscopy. (6) Dilated tracheostomy stoma Current Visit: Yes Status: Acute Assessment and plan: Tracheostomy since 1999 Stable - Subjective Interval history: Patient was seen and examined at bedside this morning. He denies having any respiratory distress. Denies having any pain or hemoptysis. States that he is feeling well. He has no complaints at this time. - Constitutional Vitals: Temp Pulse Resp BP Pulse Ox 97.8 F 92 17 151/95 91 01/17/17 07:30 01/17/17 07:30 01/17/17 07:30 01/17/17 07:30 01/17/17 07:30 General appearance: Present: A&O X 3, pleasant, no acute distress, answers questions appropriately - Head Head exam: Present: atraumatic, normocephalic - Eye Eye exam: Present: PERRL, conjuntiva pink, sclera anicteric Pupils: Present: PERRL - Neck Neck exam general surgery: Present: supple, trachea midline. Absent: lymphadenopathy Additional comments: Trach observed - Respiratory Respiratory exam: Present: CTAB. Absent: accessory muscle use, rales, rhonchi, wheezes - Cardiovascular Cardiovascular exam: Present: RRR, +S1, +S2. Absent: diastolic murmur, gallop, rubs, systolic murmur - Skin Skin exam: Present: dry, intact Internal Medicine: Result - Labs CBC & Chem 7: 01/17/17 04:47 01/17/17 04:47 Labs: Short CBC 01/17/17 Range/Units 04:47 WBC 7.0 (4.3-11.1) K/mcL Hgb 10.4 L (12.9-16.9) g/dL Hct 34.7 L (37.5-50.1) % Plt Count 284 (140-400) K/mcL Neutrophils # 5.4 (1.6-8.9) K/mcL BMP 01/17/17 04:47 Sodium 139 Potassium 4.8 H Chloride 104 Carbon Dioxide 28 BUN 20 Creatinine 1.13 Glucose 94 Calcium 8.1 L - ABG Interpretation ABG results: PT/INR, D-dimer PT 13.0 Seconds (9.4-12.1) H 01/13/17 02:30 - Impressions Impressions Chest CT 01/16/17 11:11 IMPRESSION: 1. No significant change in the loculated right pleural collection consisting mostly of gas and a small amount of fluid. Right pleural catheter remains within this collection. 2. Bibasilar opacities are likely atelectasis. D/ / Martín Mcbride MD / Martín Mcbride MD Interpreting Provider: Martín Mcbride MD Consult Discharge Plan - Plan [facility]errals: [facility] [Primary Care Provider] - (Patient will follow up with the [facility] PCP) <Sunil Veronica T - Last Filed: 01/17/17 13:16> Date of Encounter: 01/17/17 - Constitutional Vitals: Temp Pulse Resp BP Pulse Ox 97.9 F 86 17 137/88 92 01/17/17 11:21 01/17/17 11:21 01/17/17 11:21 01/17/17 11:21 01/17/17 11:21 Internal Medicine: Result - Labs CBC & Chem 7: 01/17/17 04:47 01/17/17 04:47 Labs: Short CBC 01/17/17 Range/Units 04:47 WBC 7.0 (4.3-11.1) K/mcL Hgb 10.4 L (12.9-16.9) g/dL Hct 34.7 L (37.5-50.1) % Plt Count 284 (140-400) K/mcL Neutrophils # 5.4 (1.6-8.9) K/mcL BMP 01/17/17 04:47 Sodium 139 Potassium 4.8 H Chloride 104 Carbon Dioxide 28 BUN 20 Creatinine 1.13 Glucose 94 Calcium 8.1 L - ABG Interpretation ABG results: PT/INR, D-dimer PT 13.0 Seconds (9.4-12.1) H 01/13/17 02:30 - Attending Attestation I independently saw and examined this patient on 01/16/17, plan of care is as detailed in the resident physician's documentation 71 M with HCAP and parapneumonic effusion No new complains Chest exam is improved aeration in the RLL. Chest tube effluent ~70cc at time of review, repeat CT 01/14 noted. Pulmonology eval noted 01/15 Today he remains pleasant and has no new complains His chest tube continues to drain, ~40cc at my time of eval Pulm bandaral noted-for chest tube removal when drainage is minimal Physical exam: VSS, NAD. HEENT: Unremarkable. Wide stoma, not infected. Chest with decreased air entry RLL. No wheezes. Heart sounds S1, S2 only. abdomen is soft and not tender. Extremities no edema. Neuro exam is unremarkable. Speech deficit due to trach. Day 6 of Levaquin/Zosyn. Vanco discontinued 01/15. Continue Levaquin/Zosyn/prednisone and duonebs. Continue amlodipine, Imdur. Discontinue Zosyn 01/18 after 7 days of therapy Chronic medical conditions are stable Blood pressure is improving Rest as in resident physician's documentation
[2017-01-17] MEDS ORDERED: Piperacillin/Tazobactam 3.375 GM/200 ML BAG IVPB SCH ×2 (12:00)
--- NOTE | 2017-01-17 14:30 | Pulmonology Progress Note ---
Date of Encounter: 01/17/17 Time of Encounter: 11:00 Assessment and Plan (1) Pleural effusion exudative Current Visit: Yes Status: Acute Loculated pleural effusion concern for empyema had a pig tail catheter put in now the fluid has drained almost completely in the CT scan which is replaced with air after 2 days of chest tube suction no change in pneumothorax discussed the imaging with CT surgery any surgical intervention will worsen the lung function most likely the loculated pnemothorax wont cause that much V/Q mismatch , patient is asymptomatic putting all together patient wont benefit from surgical intervention , patient is still having some 70 ml out will wait to pull the tube out . (2) COPD (chronic obstructive pulmonary disease) Current Visit: Yes Status: Chronic Symptoms getting better continue the current regimen when he is getting discharged will send him home on short steroid taper Qualifiers: COPD type: COPD with acute exacerbation Qualified Code(s): J44.1 - Chronic obstructive pulmonary disease with (acute) exacerbation (3) HCAP (healthcare-associated pneumonia) Current Visit: Yes Status: Acute Agree with deescalation on discharge to complete a 14 day course of Levofloxacin stopped Zosyn as the pleural fluid culture came no growth . Subjective Principal diagnosis: SOB Interval history: Patient is pretty much asymptomatic no cough or shortness of breadth , no hemoptysis sitting on the side of the bed . Objective PUL Vital signs: Last Vital Signs Temp 97.9 F 01/17/17 11:21 Pulse 86 01/17/17 11:21 Resp 17 01/17/17 11:21 BP 137/88 01/17/17 11:21 Pulse Ox 92 01/17/17 11:21 Auscultation: right: diminished breath sounds Results - Laboratory Findings CBC and BMP: 01/17/17 04:47 01/17/17 04:47 PT/INR, D-dimer PT 13.0 Seconds (9.4-12.1) H 01/13/17 02:30 Abnormal lab findings: Abnormal lab results Hgb 10.4 g/dL (12.9-16.9) L 01/17/17 04:47 Hct 34.7 % (37.5-50.1) L 01/17/17 04:47 MCV 81.6 fL (83.0-100.0) L 01/17/17 04:47 MCH 24.5 pg (28.0-33.3) L 01/17/17 04:47 MCHC 30.0 g/dL (31.6-35.5) L 01/17/17 04:47 RDW 15.4 % (11.5-14.5) H 01/17/17 04:47 Nucleated RBCs/100 WBC 0.4 /100 WBC (0) H 01/13/17 02:30 PT 13.0 Seconds (9.4-12.1) H 01/13/17 02:30 Potassium 4.8 mEq/L (3.5-4.5) H 01/17/17 04:47 Calcium 8.1 mg/dL (8.6-10.8) L 01/17/17 04:47 B-Natriuretic Peptide 489 pg/mL (0-100) H 01/13/17 02:30 Albumin 2.2 g/dL (3.5-5.0) L 01/13/17 02:30 Globulin 5.1 g/dL (2.4-3.5) H 01/13/17 02:30 Albumin/Globulin Ratio 0.4 (1.1-2.2) L 01/13/17 02:30 HDL Cholesterol 25 mg/dL (40-59) L 01/13/17 02:30 - Microbiology Findings Microbiology Findings: Microbiology, Last 48 Hours 01/13/17 14:14 Body Fluid Culture - Final Pleural Fluid - Clinical Findings Intake & Output: Intake & Output 01/16/17 01/17/17 01/17/17 23:59 07:59 15:59 Intake Total 200 / 200 480 / 480 Output Total 815 / 815 720 / 720 0 / 0 Balance -615 / -615 -720 / -720 480 / 480 Consult Discharge Plan - Plan [facility]errals: [facility] [Primary Care Provider[facility] - ([facility])
[2017-01-17] MEDS: Melatonin 3 MG TABLET PO SCH (19:59)
[2017-01-17] MEDS: risperiDONE 1 MG TABLET PO SCH (19:59)
[2017-01-18] MEDS: *HR* Morphine 2 MG/ML SYRINGE IVP PRN ×3 (01:11→18:26)
[2017-01-18] MEDS: *HR* OxyCODONE Immed Rel 5 MG TABLET PO PRN ×3 (03:57→19:53)
[2017-01-18 05:19] LABS: Basophils % 0.3 %; Eosinophils # 0.1 K/mcL (0.0-0.6); Eosinophils % 0.9 %; Hematocrit 35.1 % (37.5-50.1); Hemoglobin 10.6 g/dL (12.9-16.9); Immature Granulocytes % 0.9 % (0-4); Lymphocytes # 1.2 K/mcL (0.6-4.6); Lymphocytes % 17.2 %; Mean Corpuscular HGB Conc 30.2 g/dL (31.6-35.5); Mean Corpuscular Hemoglobin 24.7 pg (28.0-33.3); Mean Corpuscular Volume 81.6 fL (83.0-100.0); Mean Platelet Volume 9.3 fL (9.4-12.4); Monocytes # 0.4 K/mcL (0.0-1.3); Monocytes % 6.2 %; Platelet Count 264 K/mcL (140-400); Red Cell Distribution Width 15.5 % (11.5-14.5); Segmented Neutrophils % 74.5 %
[2017-01-18 05:35] LABS: BUN/Creatinine Ratio 16 (6-26); Blood Urea Nitrogen 19 mg/dL (8-26); Calcium 8.2 mg/dL (8.6-10.8); Carbon Dioxide 26 mEq/L (19-29); Chloride 104 mEq/L (98-109); Glucose 89 mg/dL (70-99); Osmolality,Calculated 288 (280-300); Potassium 4.9 mEq/L (3.5-4.5); Sodium 138 mEq/L (136-145); eGFR For African Americans > 60 (> 60); eGFR For Non-African Americans > 60 (> 60)
[2017-01-18] MEDS: Levothyroxine 25 MCG TABLET PO SCH (06:02)
[2017-01-18] MEDS: amLODIPine 5 MG TABLET PO SCH (07:30)
[2017-01-18] MEDS: Isosorbide MONOnitrate (24 HR) 60 MG TAB.ER.24H PO SCH ×2 (07:30→09:27)
[2017-01-18] MEDS: predniSONE 20 MG TABLET PO SCH (07:31)
[2017-01-18] MEDS: Gabapentin 400 MG CAPSULE PO SCH ×3 (07:31→19:53)
[2017-01-18] MEDS: levoFLOXacin 750 MG TABLET PO SCH (07:31)
--- NOTE | 2017-01-18 10:25 | Internal Med Progress Note ---
<Ronald Patel - Last Filed: 01/18/17 13:05> Date of Encounter: 01/18/17 Time of Encounter: 08:30 - Assessment and plan (1) HCAP (healthcare-associated pneumonia) Current Visit: Yes Status: Acute Assessment and plan: CTA on 01/12/17: demonstrated pneumonia and loculated pleural effusion on the right side. Blood CX negative. Repeat CT of the chest on 01/14/17: reveals areas of consolidation in the bilateral lower lobes and lingula have mildly improved since prior examination. Repeat CT chest on 01/16/17: No change in size of the right-sided effusion, bibasilar atelectasis. WC this mornin.7 Plan: -Day 7 of abx: Levaquin 750 mg IV daily, Zosyn 3.375 IV Q8. -Prednisone PO 40mg Daily -Duoneb 3ml IH Q4 -Vital sign assessment Q4 (2) Loculated pleural effusion Current Visit: Yes Status: Acute Assessment and plan: CT chest: Right pigtail pleural catheter terminates within loculated right- sided pleural effusion. Diagnostic thoracentesis was performed on 01/13/17. Per thoracentesis report, no bacteria were identified. Pleural fluid had a pH of 8, bloody appearance, 80% lymphocytes; light criteria indicative of exudative effusion. Repeat CT scan performed on 01/16/17: Demonstrated no changes in the right sided effusion. Also revealed the presence of bibasilar atelectasis. Per pulmonology progress note, will discuss with cardiothoracic surgery. Pulmonology recommends that the amount of fluid drained is less than 30 mL per 24 hours; patient is still draining too much fluid or discharge. Per pulmonology: -Fluid collection still draining; no changes in right-sided effusion according to CT scan performed on 01/16/17. -Chest tube placed on continuous wall suction -Patient is still draining a considerable amount of fluid; drained approximately 70 mL in the past 24 hours. -Spoke with pulmonology this morning; patient will likely need to stay in the hospital over the weekend. -Possible repeat CT scan on Friday if patient is draining less fluid. (3) COPD (chronic obstructive pulmonary disease) Current Visit: Yes Status: Chronic Assessment and plan: Plan: -Prednisone 40 mg PO daily. -DuoNeb 3ml IH Q4 Qualifiers: COPD type: COPD with acute exacerbation Qualified Code(s): J44.1 - Chronic obstructive pulmonary disease with (acute) exacerbation (4) Hypertension Current Visit: Yes Status: Acute Assessment and plan: Patient's blood pressure this morning was 168/104. Plan: -Amlodipine 10 mg PO daily Qualifiers: Qualified Code(s): I10 - Essential (primary) hypertension (5) Hemoptysis Current Visit: Yes Status: Resolved Assessment and plan: Patient has not had hemoptysis since his admission. Per pulmonology, there is no need for bronchoscopy. (6) Dilated tracheostomy stoma Current Visit: Yes Status: Acute Assessment and plan: Tracheostomy since 1999 Stable - Subjective Interval history: Patient was seen and examined at bedside this morning. He denies having any respiratory distress. Denies having any pain or hemoptysis. States that he is feeling well. He has no complaints at this time. 2. Still draining a considerable amount of pleural fluid; approximately 70 mL in the past 24 hours. - Constitutional Vitals: Temp Pulse Resp BP Pulse Ox 97.5 F L 92 16 168/104 96 01/18/17 07:32 01/18/17 07:32 01/18/17 07:32 01/18/17 07:32 01/18/17 07:32 General appearance: Present: pleasant, no acute distress, answers questions appropriately - Head Head exam: Present: atraumatic, normocephalic - Eye Eye exam: Present: PERRL, conjuntiva pink, sclera anicteric Pupils: Present: PERRL - Neck Neck exam general surgery: Present: supple, trachea midline. Absent: lymphadenopathy Additional comments: Trach observed - Respiratory Respiratory exam: Present: CTAB. Absent: accessory muscle use, rales, rhonchi, wheezes - Cardiovascular Cardiovascular exam: Present: RRR, +S1, +S2. Absent: diastolic murmur, gallop, rubs, systolic murmur - Extremities Exam Extremities exam: Absent: calf tenderness, cyanotic, pedal edema - Skin Skin exam: Present: dry, intact Internal Medicine: Result - Labs CBC & Chem 7: 01/18/17 05:08 01/18/17 05:08 Labs: Short CBC 01/18/17 Range/Units 05:08 WBC 6.7 (4.3-11.1) K/mcL Hgb 10.6 L (12.9-16.9) g/dL Hct 35.1 L (37.5-50.1) % Plt Count 264 (140-400) K/mcL Neutrophils # 5.0 (1.6-8.9) K/mcL [facility] 01/18/17 05:08 Sodium 138 Potassium 4.9 H Chloride 104 Carbon Dioxide 26 BUN 19 Creatinine 1.17 Glucose 89 Calcium 8.2 L - ABG Interpretation ABG results: PT/INR, D-dimer PT 13.0 Seconds (9.4-12.1) H 01/13/17 02:30 Consult Discharge Plan - Plan Referrals: [facility] [Primary Care Provider] - ([facility]) <Sunil Veronica - Last Filed: 01/18/17 13:35> Date of Encounter: 01/18/17 - Constitutional Vitals: Temp Pulse Resp BP Pulse Ox 98.2 F 95 16 109/71 93 01/18/17 11:42 01/18/17 11:42 01/18/17 11:42 01/18/17 11:42 01/18/17 11:42 Internal Medicine: Result - Labs CBC & Chem 7: 01/18/17 05:08 01/18/17 05:08 Labs: Short CBC 01/18/17 Range/Units 05:08 WBC 6.7 (4.3-11.1) K/mcL Hgb 10.6 L (12.9-16.9) g/dL Hct 35.1 L (37.5-50.1) % Plt Count 264 (140-400) K/mcL Neutrophils # 5.0 (1.6-8.9) K/mcL [facility] 01/18/17 05:08 Sodium 138 Potassium 4.9 H Chloride 104 Carbon Dioxide 26 BUN 19 Creatinine 1.17 Glucose 89 Calcium 8.2 L - ABG Interpretation ABG results: PT/INR, D-dimer PT 13.0 Seconds (9.4-12.1) H 01/13/17 02:30 - Attending Attestation I independently saw and examined this patient on 01/18/17, plan of care is as detailed in the resident physician's documentation 71 M with HCAP and parapneumonic effusion No new complains Chest exam is improved aeration in the RLL. Chest tube effluent ~70cc at time of review, repeat CT 01/14 noted. Pulmonology eval noted 01/15 Today he remains pleasant and has no new complains His chest tube continues to drain, ~70cc overnight Pulm kyara noted-for chest tube removal when drainage is minimal Physical exam: VSS, NAD. HEENT: Unremarkable. Wide stoma, not infected. Chest with decreased air entry RLL. No wheezes. Heart sounds S1, S2 only. abdomen is soft and not tender. Extremities no edema. Neuro exam is unremarkable. Speech deficit due to trach. Day 7 of Levaquin/Zosyn. Vanco discontinued 01/15. Discontinue Zosyn 08/23. D/C prednisone 06/21. Chronic medical conditions are stable Blood pressure is uncontrolled,increase Imdur for better control Rest as in resident physician's documentation
--- NOTE | 2017-01-18 11:57 | Pulmonology Progress Note ---
Date of Encounter: 01/18/17 Time of Encounter: 10:00 Assessment and Plan (1) Pleural effusion exudative Current Visit: Yes Status: Acute Loculated pleural effusion concern for empyema had a pig tail catheter put in now the fluid has drained almost completely in the CT scan which is replaced with air after 2 days of chest tube suction no change in pneumothorax discussed the imaging with CT surgery any surgical intervention will worsen the lung function most likely the loculated pnemothorax wont cause that much V/Q mismatch , patient is asymptomatic putting all together patient wont benefit from surgical intervention , patient is still having some 60 ml out will wait to pull the tube out . Will give one more day and repeat CT scan before the pulling the chest tube (2) COPD (chronic obstructive pulmonary disease) Current Visit: Yes Status: Chronic Symptoms getting better continue the current regimen when he is getting discharged will send him home on short steroid taper Qualifiers: COPD type: COPD with acute exacerbation Qualified Code(s): J44.1 - Chronic obstructive pulmonary disease with (acute) exacerbation (3) HCAP (healthcare-associated pneumonia) Current Visit: Yes Status: Acute Agree with deescalation on discharge to complete a 14 day course of Levofloxacin stopped Zosyn as the pleural fluid culture came no growth . Subjective Principal diagnosis: SOB Interval history: Patient is pretty much asymptomatic no cough or shortness of breadth , no hemoptysis . Objective PUL Vital signs: Last Vital Signs Temp 98.2 F 01/18/17 11:42 Pulse 95 01/18/17 11:42 Resp 16 01/18/17 11:42 BP 109/71 01/18/17 11:42 Pulse Ox 93 01/18/17 11:42 Auscultation: right: diminished breath sounds, wheezes (some scattered wheezes ) Results - Laboratory Findings CBC and BMP: 01/18/17 05:08 01/18/17 18:36 PT/INR, D-dimer PT 13.0 Seconds (9.4-12.1) H 01/13/17 02:30 Abnormal lab findings: Abnormal lab results Hgb 10.6 g/dL (12.9-16.9) L 01/18/17 05:08 Hct 35.1 % (37.5-50.1) L 01/18/17 05:08 MCV 81.6 fL (83.0-100.0) L 01/18/17 05:08 MCH 24.7 pg (28.0-33.3) L 01/18/17 05:08 MCHC 30.2 g/dL (31.6-35.5) L 01/18/17 05:08 RDW 15.5 % (11.5-14.5) H 01/18/17 05:08 MPV 9.3 fL (9.4-12.4) L 01/18/17 05:08 Nucleated RBCs/100 WBC 0.4 /100 WBC (0) H 01/13/17 02:30 PT 13.0 Seconds (9.4-12.1) H 01/13/17 02:30 Potassium 4.9 mEq/L (3.5-4.5) H 01/18/17 05:08 Calcium 8.2 mg/dL (8.6-10.8) L 01/18/17 05:08 B-Natriuretic Peptide 489 pg/mL (0-100) H 01/13/17 02:30 Albumin 2.2 g/dL (3.5-5.0) L 01/13/17 02:30 Globulin 5.1 g/dL (2.4-3.5) H 01/13/17 02:30 Albumin/Globulin Ratio 0.4 (1.1-2.2) L 01/13/17 02:30 HDL Cholesterol 25 mg/dL (40-59) L 01/13/17 02:30 - Microbiology Findings Microbiology Findings: Microbiology, Last 48 Hours 01/13/17 14:14 Body Fluid Culture - Final Pleural Fluid - Clinical Findings Intake & Output: Intake & Output 01/17/17 01/18/17 01/18/17 23:59 07:59 15:59 Intake Total 200 / 200 600 / 600 Output Total 560 / 560 1495 / 1495 Balance -360 / -360 -1495 / -1495 600 / 600 Weight 95.3 kg Consult Discharge Plan - Plan [facility]errals: [facility] [Primary Care Provider] - (Patient will follow up with the [facility] in[facility] PCP)
[2017-01-18] MEDS: Melatonin 3 MG TABLET PO SCH (19:54)
[2017-01-18] MEDS: risperiDONE 1 MG TABLET PO SCH (19:54)
[2017-01-19] MEDS: *HR* Morphine 2 MG/ML SYRINGE IVP PRN ×3 (00:51→20:07)
[2017-01-19 01:38] LABS: Potassium 4.4 mEq/L (3.5-4.5)
[2017-01-19 05:31] LABS: Basophils % 0.4 %; Eosinophils # 0.1 K/mcL (0.0-0.6); Eosinophils % 1.3 %; Hematocrit 32.6 % (37.5-50.1); Hemoglobin 9.8 g/dL (12.9-16.9); Immature Granulocytes % 1.7 % (0-4); Lymphocytes # 1.3 K/mcL (0.6-4.6); Lymphocytes % 17.6 %; Mean Corpuscular HGB Conc 30.1 g/dL (31.6-35.5); Mean Corpuscular Hemoglobin 24.4 pg (28.0-33.3); Mean Corpuscular Volume 81.3 fL (83.0-100.0); Mean Platelet Volume 9.5 fL (9.4-12.4); Monocytes # 0.6 K/mcL (0.0-1.3); Monocytes % 7.9 %; Neutrophils # 5.4 K/mcL (1.6-8.9); Platelet Count 294 K/mcL (140-400); Red Blood Count 4.01 M/mcL (4.19-5.50); Red Cell Distribution Width 15.9 % (11.5-14.5); Segmented Neutrophils % 71.1 %
[2017-01-19 05:48] LABS: BUN/Creatinine Ratio 18 (6-26); Blood Urea Nitrogen 24 mg/dL (8-26); Calcium 7.5 mg/dL (8.6-10.8); Chloride 105 mEq/L (98-109); Glucose 98 mg/dL (70-99); Osmolality,Calculated 290 (280-300); Potassium 4.1 mEq/L (3.5-4.5); Sodium 138 mEq/L (136-145); eGFR For African Americans > 60 (> 60); eGFR For Non-African Americans 54 (> 60)
[2017-01-19 06:19] LABS: Carbon Dioxide 28 mEq/L (19-29)
[2017-01-19] MEDS: Levothyroxine 25 MCG TABLET PO SCH (06:24)
[2017-01-19] MEDS: levoFLOXacin 750 MG TABLET PO SCH (08:05)
[2017-01-19] MEDS: Gabapentin 400 MG CAPSULE PO SCH ×3 (08:06→20:07)
[2017-01-19] MEDS: Isosorbide MONOnitrate (24 HR) 60 MG TAB.ER.24H PO SCH (08:06)
[2017-01-19] MEDS: amLODIPine 5 MG TABLET PO SCH (08:06)
[2017-01-19] MEDS ORDERED: 0.9 % Sodium Chloride 500 ML IVC ONE (08:11)
[2017-01-19] MEDS ORDERED: levoFLOXacin 500 MG TABLET PO SCH (09:00)
--- NOTE | 2017-01-19 10:13 | Internal Med Progress Note ---
<Sunil Veronica T - Last Filed: 01/19/17 12:59> Date of Encounter: 01/19/17 - Constitutional Vitals: Temp Pulse Resp BP Pulse Ox 98.3 F 86 14 114/73 92 01/19/17 11:36 01/19/17 11:36 01/19/17 11:36 01/19/17 11:36 01/19/17 11:36 Internal Medicine: Result - Labs CBC & Chem 7: 01/19/17 04:53 01/19/17 04:53 Labs: Short CBC 01/19/17 Range/Units 04:53 WBC 7.6 (4.3-11.1) K/mcL Hgb 9.8 L (12.9-16.9) g/dL Hct 32.6 L (37.5-50.1) % Plt Count 294 (140-400) K/mcL Neutrophils # 5.4 (1.6-8.9) K/mcL BMP 01/18/17 01/19/17 01/19/17 18:36 00:51 04:53 Sodium 137 138 Potassium 5.0 H 4.4 4.1 Chloride 103 105 Carbon Dioxide 17 L 28 BUN 24 24 Creatinine 1.51 H 1.31 H Glucose 117 H 98 Calcium 8.0 L 7.5 L - ABG Interpretation ABG results: PT/INR, D-dimer PT 13.0 Seconds (9.4-12.1) H 01/13/17 02:30 Consult Discharge Plan - Plan Referrals: [facility] [Primary Care Provider] - (Patient will follow up with the [place] inpt PCP) - Attending Attestation I independently saw and examined this patient on 01/19/17, plan of care is as detailed in the resident physician's documentation 71 M with HCAP and parapneumonic effusion No new complains Chest exam is improved aeration in the RLL. Chest tube effluent ~70cc at time of review, repeat CT 01/14 noted. Pulmonology eval noted 01/15 Today he remains pleasant and has no new complains His chest tube continues to drain, ~40cc overnight Pulm eval noted-for chest tube removal when drainage is minimal, repeat CT a.m Labs showed elevated creatinie this morning, patient is not on any nephrotoxins at this time We will give 500cc bolus and monitor Physical exam: VSS, NAD. HEENT: Unremarkable. Wide stoma, not infected. Chest with decreased air entry RLL. No wheezes. Heart sounds S1, S2 only. abdomen is soft and not tender. Extremities no edema. Neuro exam is unremarkable. Speech deficit due to trach. Vanco discontinued 01/15. Discontinue Zosyn 08/23. D/C prednisone 06/21. Continue levaquin, change to 500mg Chronic medical conditions are stable Rest as in resident physician's documentation <Ronald Patel - Last Filed: 01/19/17 13:42> Date of Encounter: 01/19/17 Time of Encounter: 09:10 - Assessment and plan (1) HCAP (healthcare-associated pneumonia) Current Visit: Yes Status: Acute Assessment and plan: CTA on 01/12/17: demonstrated pneumonia and loculated pleural effusion on the right side. Blood CX negative. Repeat CT of the chest on 01/14/17: reveals areas of consolidation in the bilateral lower lobes and lingula have mildly improved since prior examination. Repeat CT chest on 01/16/17: No change in size of the right-sided effusion, bibasilar atelectasis. WC this mornin.6 Pneumonia appears to have resolved; pleural effusion still draining. Plan: -Levaquin was changed to 500 mg PO daily. -Duoneb 3ml IH Q4 -Vital sign assessment Q4 (2) Loculated pleural effusion Current Visit: Yes Status: Acute Assessment and plan: CT chest: Right pigtail pleural catheter terminates within loculated right- sided pleural effusion. Diagnostic thoracentesis was performed on 01/13/17. Per thoracentesis report, no bacteria were identified. Pleural fluid had a pH of 8, bloody appearance, 80% lymphocytes; light criteria indicative of exudative effusion. Repeat CT scan performed on 01/16/17: Demonstrated no changes in the right sided effusion. Also revealed the presence of bibasilar atelectasis. Per pulmonology progress note, will discuss with cardiothoracic surgery. Pulmonology recommends that the amount of fluid drained is less than 30 mL per 24 hours; patient is still draining too much fluid or discharge. Per pulmonology: -Fluid collection still draining; no changes in right-sided effusion according to CT scan performed on 01/16/17. -Chest tube still draining -Patient is still draining a considerable amount of fluid -Per pulmonology, patient will likely need to stay in the hospital over the weekend. -Possible repeat CT scan on Friday if patient is draining less fluid. (3) COPD (chronic obstructive pulmonary disease) Current Visit: Yes Status: Chronic Assessment and plan: Plan: -DuoNeb 3ml IH Q4 PRN Qualifiers: COPD type: COPD with acute exacerbation Qualified Code(s): J44.1 - Chronic obstructive pulmonary disease with (acute) exacerbation (4) Hypertension Current Visit: Yes Status: Acute Assessment and plan: Patient's blood pressure this morning was 130/82. Patient's SBP has been 160-180 during his stay; is now well controlled. Plan: -Amlodipine 10 mg PO daily Qualifiers: Qualified Code(s): I10 - Essential (primary) hypertension (5) Hemoptysis Current Visit: Yes Status: Resolved Assessment and plan: Patient has not had hemoptysis since his admission. Per pulmonology, there is no need for bronchoscopy. (6) Dilated tracheostomy stoma Current Visit: Yes Status: Acute Assessment and plan: Tracheostomy since 1999 Stable (7) Hyperkalemia Current Visit: Yes Status: Acute Assessment and plan: Patient's potassium was elevated yesterday at 4.8; was given kayexalate. -Potassium was elevated yesterday evening at 5.0; was given a repeat dose of kayexalate. -Potassium today is 4.1. - Subjective Interval history: Patient was seen and examined at bedside this morning. He denies having any respiratory distress. Denies having any pain or hemoptysis. States that he is feeling well. He has no complaints at this time. Still draining pleural fluid. - Constitutional Vitals: Temp Pulse Resp BP Pulse Ox 97.6 F 86 16 130/82 94 01/19/17 06:51 01/19/17 06:51 01/19/17 06:51 01/19/17 06:51 01/19/17 06:51 General appearance: Present: pleasant, no acute distress, answers questions appropriately - Head Head exam: Present: atraumatic, normocephalic - Eye Eye exam: Present: PERRL, conjuntiva pink, sclera anicteric Pupils: Present: PERRL - Neck Neck exam general surgery: Present: supple, trachea midline. Absent: lymphadenopathy - Respiratory Respiratory exam: Present: CTAB. Absent: accessory muscle use, rales, rhonchi, wheezes - Cardiovascular Cardiovascular exam: Present: RRR, +S1, +S2. Absent: diastolic murmur, gallop, rubs, systolic murmur - Extremities Exam Extremities exam: Present: warm, radial pulses palpable and symmetrical. Absent : calf tenderness, cyanotic, pedal edema - Skin Skin exam: Present: dry, intact Internal Medicine: Result - Labs CBC & Chem 7: 01/19/17 04:53 01/19/17 04:53 Labs: Short CBC 01/19/17 Range/Units 04:53 WBC 7.6 (4.3-11.1) K/mcL Hgb 9.8 L (12.9-16.9) g/dL Hct 32.6 L (37.5-50.1) % Plt Count 294 (140-400) K/mcL Neutrophils # 5.4 (1.6-8.9) K/mcL BMP 01/18/17 01/19/17 01/19/17 18:36 00:51 04:53 Sodium 137 138 Potassium 5.0 H 4.4 4.1 Chloride 103 105 Carbon Dioxide 17 L 28 BUN 24 24 Creatinine 1.51 H 1.31 H Glucose 117 H 98 Calcium 8.0 L 7.5 L - ABG Interpretation ABG results: PT/INR, D-dimer PT 13.0 Seconds (9.4-12.1) H 01/13/17 02:30
--- NOTE | 2017-01-19 10:24 | Pulmonology Progress Note ---
Date of Encounter: 01/19/17 Time of Encounter: 10:30 Assessment and Plan (1) Pleural effusion exudative Current Visit: Yes Status: Acute Loculated pleural effusion concern for empyema had a pig tail catheter put in now the fluid has drained almost completely in the CT scan which is replaced with air after 2 days of chest tube suction no change in pneumothorax discussed the imaging with CT surgery any surgical intervention will worsen the lung function most likely the loculated pnemothorax wont cause that much V/Q mismatch , patient is asymptomatic putting all together patient wont benefit from surgical intervention , patient is still having quite bit of output in the chest tube very occasional airleak Will give one more day and repeat CT scan on friday before the pulling the chest tube (2) COPD (chronic obstructive pulmonary disease) Current Visit: Yes Status: Chronic Symptoms getting better continue the current regimen when he is getting discharged will send him home on short steroid taper Qualifiers: COPD type: COPD with acute exacerbation Qualified Code(s): J44.1 - Chronic obstructive pulmonary disease with (acute) exacerbation (3) HCAP (healthcare-associated pneumonia) Current Visit: Yes Status: Acute Agree with deescalation on discharge to complete a 14 day course of Levofloxacin stopped Zosyn as the pleural fluid culture came no growth . Subjective Principal diagnosis: SOB Interval history: Patient is pretty much asymptomatic no cough or shortness of breadth , no hemoptysis . No new complaints . Objective PUL Vital signs: Last Vital Signs Temp 97.6 F 01/19/17 06:51 Pulse 86 01/19/17 06:51 Resp 16 01/19/17 06:51 BP 130/82 01/19/17 06:51 Pulse Ox 94 01/19/17 06:51 Auscultation: right: diminished breath sounds Results - Laboratory Findings CBC and BMP: 01/19/17 04:53 01/19/17 04:53 PT/INR, D-dimer PT 13.0 Seconds (9.4-12.1) H 01/13/17 02:30 Abnormal lab findings: Abnormal lab results RBC 4.01 M/mcL (4.19-5.50) L 01/19/17 04:53 Hgb 9.8 g/dL (12.9-16.9) L 01/19/17 04:53 Hct 32.6 % (37.5-50.1) L 01/19/17 04:53 MCV 81.3 fL (83.0-100.0) L 01/19/17 04:53 MCH 24.4 pg (28.0-33.3) L 01/19/17 04:53 MCHC 30.1 g/dL (31.6-35.5) L 01/19/17 04:53 RDW 15.9 % (11.5-14.5) H 01/19/17 04:53 Nucleated RBCs/100 WBC 0.4 /100 WBC (0) H 01/13/17 02:30 PT 13.0 Seconds (9.4-12.1) H 01/13/17 02:30 Creatinine 1.31 mg/dL (0.72-1.25) H 01/19/17 04:53 Est GFR (Non-Af Amer) 54 (> 60) L 01/19/17 04:53 Calcium 7.5 mg/dL (8.6-10.8) L 01/19/17 04:53 B-Natriuretic Peptide 489 pg/mL (0-100) H 01/13/17 02:30 Albumin 2.2 g/dL (3.5-5.0) L 01/13/17 02:30 Globulin 5.1 g/dL (2.4-3.5) H 01/13/17 02:30 Albumin/Globulin Ratio 0.4 (1.1-2.2) L 01/13/17 02:30 HDL Cholesterol 25 mg/dL (40-59) L 01/13/17 02:30 - Clinical Findings Intake & Output: Intake & Output 01/18/17 01/19/17 01/19/17 23:59 07:59 15:59 Intake Total 1080 / 1080 240 / 240 Output Total 410 / 410 681 / 681 Balance 670 / 670 -441 / -441 Weight 100.425 kg Consult Discharge Plan - Plan [facility]errals: [facility] [Primary Care Provider] - (Patient will follow up with the [place] inpt PCP)
[2017-01-19] MEDS: Melatonin 3 MG TABLET PO SCH (20:07)
[2017-01-19] MEDS: risperiDONE 1 MG TABLET PO SCH (20:08)
[2017-01-20 03:10] LABS: Hematocrit 34.2 % (37.5-50.1); Hemoglobin 10.2 g/dL (12.9-16.9); Mean Corpuscular HGB Conc 29.8 g/dL (31.6-35.5); Mean Corpuscular Hemoglobin 24.9 pg (28.0-33.3); Mean Corpuscular Volume 83.6 fL (83.0-100.0); Mean Platelet Volume 10.1 fL (9.4-12.4); Platelet Count 257 K/mcL (140-400); Red Blood Count 4.09 M/mcL (4.19-5.50); Red Cell Distribution Width 16.4 % (11.5-14.5)
[2017-01-20 03:27] LABS: Calcium 7.7 mg/dL (8.6-10.8)
[2017-01-20 03:29] LABS: Potassium 5.3 mEq/L (3.5-4.5)
[2017-01-20] MEDS: Levothyroxine 25 MCG TABLET PO SCH (06:19)
[2017-01-20] MEDS: *HR* Morphine 2 MG/ML SYRINGE IVP PRN ×4 (06:25→20:16)
[2017-01-20] MEDS ORDERED: 0.9 % Sodium Chloride 1,000 ML IVC ONE (07:38)
[2017-01-20] MEDS ORDERED: 0.9 % Sodium Chloride 1,000 ML IVC SCH (07:45)
[2017-01-20] MEDS: Isosorbide MONOnitrate (24 HR) 60 MG TAB.ER.24H PO SCH (08:37)
[2017-01-20] MEDS: Gabapentin 400 MG CAPSULE PO SCH ×3 (08:38→20:16)
[2017-01-20] MEDS: levoFLOXacin 500 MG TABLET PO SCH (08:38)
[2017-01-20] MEDS: amLODIPine 5 MG TABLET PO SCH (08:38)
--- NOTE | 2017-01-20 12:42 | Pulmonology Progress Note ---
Date of Encounter: 01/20/17 Time of Encounter: 12:41 Assessment and Plan (1) Loculated pleural effusion Current Visit: Yes Status: Acute (2) Pleural effusion exudative Current Visit: Yes Status: Acute This is a lymphocytic predominant sedated pleural effusion that was loculated status post drainage by IR placement of pigtail catheter minimal output over the last 24 hours does have residual air leak with small loculated pneumothorax CT scan has been ordered to further evaluate this suspect that chest tube could be pulled without issue though based upon underlying anatomy. Cytology was negative for malignant (3) Tobacco dependence Current Visit: Yes Status: Chronic Tobacco cessation encouraged patient felt that he was not at risk because the tobacco smoke came out through his stoma is that this is still not safe and a 7 increased risk for head and neck cancer in addition to ongoing changes of the lung (4) HCAP (healthcare-associated pneumonia) Current Visit: Yes Status: Acute This is improving agree with continuation of antimicrobials to complete approximately 10 day course (5) COPD (chronic obstructive pulmonary disease) Current Visit: Yes Status: Chronic Continue bronchodilators tobacco cessation encouraged Qualifiers: COPD type: COPD with acute exacerbation Qualified Code(s): J44.1 - Chronic obstructive pulmonary disease with (acute) exacerbation Subjective Principal diagnosis: SOB Interval history: No new complaints breathing appears to be back to baseline. Minimal amount of serous output from the chest tube in the last 24 hours Objective PUL Vital signs: Last Vital Signs Temp 97.9 F 01/20/17 11:06 Pulse 88 01/20/17 11:06 Resp 18 01/20/17 11:06 BP 119/75 01/20/17 11:06 Pulse Ox 94 01/20/17 11:06 General appearance: no acute distress Neck: supple Auscultation: bilateral: diminished breath sounds Cardiovascular: regular rate and rhythm non-focal exam Results - Laboratory Findings CBC and BMP: 01/20/17 02:23 01/20/17 02:23 PT/INR, D-dimer PT 13.0 Seconds (9.4-12.1) H 01/13/17 02:30 Abnormal lab findings: Abnormal lab results RBC 4.09 M/mcL (4.19-5.50) L 01/20/17 02:23 Hgb 10.2 g/dL (12.9-16.9) L 01/20/17 02:23 Hct 34.2 % (37.5-50.1) L 01/20/17 02:23 MCH 24.9 pg (28.0-33.3) L 01/20/17 02:23 MCHC 29.8 g/dL (31.6-35.5) L 01/20/17 02:23 RDW 16.4 % (11.5-14.5) H 01/20/17 02:23 Nucleated RBCs/100 WBC 0.4 /100 WBC (0) H 01/13/17 02:30 PT 13.0 Seconds (9.4-12.1) H 01/13/17 02:30 Potassium 5.3 mEq/L (3.5-4.5) H D 01/20/17 02:23 Carbon Dioxide 31 mEq/L (19-29) H 01/20/17 02:23 BUN 27 mg/dL (8-26) H 01/20/17 02:23 Creatinine 1.59 mg/dL (0.72-1.25) H 01/20/17 02:23 Est GFR ( Amer) 53 (> 60) L 01/20/17 02:23 Est GFR (Non-Af Amer) 43 (> 60) L 01/20/17 02:23 Calcium 7.7 mg/dL (8.6-10.8) L 01/20/17 02:23 B-Natriuretic Peptide 489 pg/mL (0-100) H 01/13/17 02:30 Albumin 2.2 g/dL (3.5-5.0) L 01/13/17 02:30 Globulin 5.1 g/dL (2.4-3.5) H 01/13/17 02:30 Albumin/Globulin Ratio 0.4 (1.1-2.2) L 01/13/17 02:30 HDL Cholesterol 25 mg/dL (40-59) L 01/13/17 02:30 - Clinical Findings Intake & Output: Intake & Output 01/19/17 01/20/17 01/20/17 23:59 07:59 15:59 Intake Total 595 / 595 240 / 240 1240 / 1240 Output Total 550 / 550 352 / 352 0 / 0 Balance 45 / 45 -112 / -112 1240 / 1240 Weight 102.682 kg Consult Discharge Plan - Plan [facility]errals: [facility] [Primary Care Provider] - ([facility])
--- NOTE | 2017-01-20 13:21 | Internal Med Progress Note ---
<Ronald Patel - Last Filed: 01/20/17 13:23> Date of Encounter: 01/20/17 Time of Encounter: 09:30 - Assessment and plan (1) HCAP (healthcare-associated pneumonia) Current Visit: Yes Status: Acute Assessment and plan: CTA on 01/12/17: demonstrated pneumonia and loculated pleural effusion on the right side. Blood CX negative. Repeat CT of the chest on 01/14/17: reveals areas of consolidation in the bilateral lower lobes and lingula have mildly improved since prior examination. Repeat CT chest on 01/16/17: No change in size of the right-sided effusion, bibasilar atelectasis. WC this mornin.6 Pneumonia appears to have resolved; pleural effusion still draining. Plan: -Levaquin 500 mg PO daily. -Duoneb 3ml IH Q4 -Vital sign assessment Q4 (2) Loculated pleural effusion Current Visit: Yes Status: Acute Assessment and plan: CT chest: Right pigtail pleural catheter terminates within loculated right- sided pleural effusion. Diagnostic thoracentesis was performed on 01/13/17. Per thoracentesis report, no bacteria were identified. Pleural fluid had a pH of 8, bloody appearance, 80% lymphocytes; light criteria indicative of exudative effusion. Repeat CT scan performed on 01/16/17: Demonstrated no changes in the right sided effusion. Also revealed the presence of bibasilar atelectasis. Per pulmonology progress note, will discuss with cardiothoracic surgery. Pulmonology recommends that the amount of fluid drained is less than 30 mL per 24 hours; patient is still draining too much fluid or discharge. Per pulmonology: -Fluid collection still draining; no changes in right-sided effusion according to CT scan performed on 01/16/17. -Chest tube still draining -Patient is still draining a considerable amount of fluid -Repeat CT has been ordered today. (3) COPD (chronic obstructive pulmonary disease) Current Visit: Yes Status: Chronic Assessment and plan: Plan: -DuoNeb 3ml IH Q4 PRN Qualifiers: COPD type: COPD with acute exacerbation Qualified Code(s): J44.1 - Chronic obstructive pulmonary disease with (acute) exacerbation (4) Hypertension Current Visit: Yes Status: Acute Assessment and plan: Patient's blood pressure this morning was 118/76. Patient's SBP has been 160-180 during his stay; is now well controlled. Plan: -Amlodipine 10 mg PO daily Qualifiers: Qualified Code(s): I10 - Essential (primary) hypertension (5) Hemoptysis Current Visit: Yes Status: Resolved Assessment and plan: Patient has not had hemoptysis since his admission. Per pulmonology, there is no need for bronchoscopy. (6) Dilated tracheostomy stoma Current Visit: Yes Status: Acute Assessment and plan: Tracheostomy since 1999 Stable (7) Hyperkalemia Current Visit: Yes Status: Acute Assessment and plan: Potassium today is 5.3. -15 g of Kayexalate will be ordered. - Subjective Interval history: Patient was seen and examined at bedside this morning. He denies having any respiratory distress. Denies having any pain or hemoptysis. States that he is feeling well. He has no complaints at this time. Still draining pleural fluid. - Constitutional Vitals: Temp Pulse Resp BP Pulse Ox 97.9 F 88 18 119/75 94 01/20/17 11:06 01/20/17 11:06 01/20/17 11:06 01/20/17 11:06 01/20/17 11:06 General appearance: Present: pleasant, no acute distress, answers questions appropriately - Head Head exam: Present: atraumatic, normocephalic - Eye Eye exam: Present: PERRL, conjuntiva pink, sclera anicteric Pupils: Present: PERRL - Neck Neck exam general surgery: Present: supple, trachea midline. Absent: lymphadenopathy Additional comments: Trach observed - Respiratory Respiratory exam: Present: CTAB. Absent: accessory muscle use, rales, rhonchi, wheezes - Cardiovascular Cardiovascular exam: Present: RRR, +S1, +S2. Absent: diastolic murmur, gallop, rubs, systolic murmur - Extremities Exam Extremities exam: Present: warm, radial pulses palpable and symmetrical. Absent : calf tenderness, cyanotic, pedal edema - Skin Skin exam: Present: dry, intact Internal Medicine: Result - Labs CBC & Chem 7: 01/20/17 02:23 01/20/17 02:23 Labs: Short CBC 01/20/17 Range/Units 02:23 WBC 7.6 (4.3-11.1) K/mcL Hgb 10.2 L (12.9-16.9) g/dL Hct 34.2 L (37.5-50.1) % Plt Count 257 (140-400) K/mcL BMP 01/19/17 01/20/17 00:51 02:23 Sodium 140 Potassium 5.3 H D Chloride 103 Carbon Dioxide 29 31 H BUN 27 H Creatinine 1.59 H Glucose 84 Calcium 7.7 L - ABG Interpretation ABG results: PT/INR, D-dimer PT 13.0 Seconds (9.4-12.1) H 01/13/17 02:30 Consult Discharge Plan - Plan Referrals: [facility] [Primary Care Provider] - ([facility]) <Sunil Veronica - Last Filed: 01/20/17 14:03> Date of Encounter: 01/20/17 - Constitutional Vitals: Temp Pulse Resp BP Pulse Ox 97.9 F 88 18 119/75 94 01/20/17 11:06 01/20/17 11:06 01/20/17 11:06 01/20/17 11:06 01/20/17 11:06 Internal Medicine: Result - Labs CBC & Chem 7: 01/20/17 02:23 01/20/17 02:23 Labs: Short CBC 01/20/17 Range/Units 02:23 WBC 7.6 (4.3-11.1) K/mcL Hgb 10.2 L (12.9-16.9) g/dL Hct 34.2 L (37.5-50.1) % Plt Count 257 (140-400) K/mcL BMP 01/19/17 01/20/17 00:51 02:23 Sodium 140 Potassium 5.3 H D Chloride 103 Carbon Dioxide 29 31 H BUN 27 H Creatinine 1.59 H Glucose 84 Calcium 7.7 L - ABG Interpretation ABG results: PT/INR, D-dimer PT 13.0 Seconds (9.4-12.1) H 01/13/17 02:30 - Attending Attestation I independently saw and examined this patient on 01/20/17, plan of care is as detailed in the resident physician's documentation 71 M with HCAP and parapneumonic effusion, hospital stay complicated by developement of KRISHNA Pulmonology is following for pigtail/chest tube management Patient is pleasant as usual No new complains Physical exam: VSS, NAD. HEENT: Unremarkable. Wide stoma, not infected. Chest with decreased air entry RLL. No wheezes. Heart sounds S1, S2 only. abdomen is soft and not tender. Extremities no edema. Neuro exam is unremarkable. Speech deficit due to trach. Give IVF 1L saline, 100mls/hr, for an additional 1L. Monitor Chem. Obtain renal USS. Follow repeat Chest CT, Pulmonary is following Complete 10 days of Levaquin, last dose of levquin tomorrow 01/21. Rest as in resident physician's documentation
[2017-01-20 18:58] LABS: Bilirubin,Urine Negative (Negative); Blood,Urine Negative (Negative); Clarity,Urine Clear (Clear); Color,Urine Yellow (Yellow); Glucose,Urine (UA) Normal (Normal); Ketones,Urine Negative (Negative); Leukocyte Esterase,Urine Negative (Negative); Nitrite,Urine Negative (Negative); Protein,Urine Negative (Neg-Trace); Specific Gravity,Urine 1.017 (1.010-1.025); Urobilinogen,Urine Normal (Normal)
[2017-01-20] MEDS: Melatonin 3 MG TABLET PO SCH (20:16)
[2017-01-20] MEDS: risperiDONE 1 MG TABLET PO SCH (20:16)
[2017-01-21] MEDS: *HR* Morphine 2 MG/ML SYRINGE IVP PRN ×3 (04:12→16:53)
[2017-01-21] MEDS: Levothyroxine 25 MCG TABLET PO SCH (05:54)
[2017-01-21] MEDS: *HR* OxyCODONE Immed Rel 5 MG TABLET PO PRN ×2 (05:54→20:02)
--- NOTE | 2017-01-21 06:45 | Pulmonology Progress Note ---
Date of Encounter: 01/21/17 Time of Encounter: 06:45 Assessment and Plan (1) Loculated pleural effusion Current Visit: Yes Status: Acute (2) Pleural effusion exudative Current Visit: Yes Status: Acute This is a lymphocytic predominant sedated pleural effusion that was loculated status post drainage by IR placement of pigtail catheter minimal output over the last 24 hours does have residual air leak with small loculated pneumothorax CT scan has been ordered to further evaluate this suspect that chest tube could be pulled without issue though based upon underlying anatomy. Cytology was negative for malignant (3) Tobacco dependence Current Visit: Yes Status: Chronic Tobacco cessation encouraged patient felt that he was not at risk because the tobacco smoke came out through his stoma is that this is still not safe and a 7 increased risk for head and neck cancer in addition to ongoing changes of the lung (4) HCAP (healthcare-associated pneumonia) Current Visit: Yes Status: Acute This is improving agree with continuation of antimicrobials to complete approximately 10 day course (5) COPD (chronic obstructive pulmonary disease) Current Visit: Yes Status: Chronic Continue bronchodilators tobacco cessation encouraged Qualifiers: COPD type: COPD with acute exacerbation Qualified Code(s): J44.1 - Chronic obstructive pulmonary disease with (acute) exacerbation Subjective Principal diagnosis: SOB Interval history: No new complaints breathing appears to be back to baseline. Minimal amount of serous output from the chest tube in the last 24 hours Objective PUL Vital signs: Last Vital Signs Temp 98.2 F 01/21/17 03:40 Pulse 106 01/21/17 03:40 Resp 16 01/21/17 03:40 BP 159/87 01/21/17 03:40 Pulse Ox 92 01/21/17 03:40 Results - Laboratory Findings CBC and BMP: 01/20/17 02:23 01/20/17 02:23 PT/INR, D-dimer PT 13.0 Seconds (9.4-12.1) H 01/13/17 02:30 Abnormal lab findings: Abnormal lab results RBC 4.09 M/mcL (4.19-5.50) L 01/20/17 02:23 Hgb 10.2 g/dL (12.9-16.9) L 01/20/17 02:23 Hct 34.2 % (37.5-50.1) L 01/20/17 02:23 MCH 24.9 pg (28.0-33.3) L 01/20/17 02:23 MCHC 29.8 g/dL (31.6-35.5) L 01/20/17 02:23 RDW 16.4 % (11.5-14.5) H 01/20/17 02:23 Nucleated RBCs/100 WBC 0.4 /100 WBC (0) H 01/13/17 02:30 PT 13.0 Seconds (9.4-12.1) H 01/13/17 02:30 Potassium 5.3 mEq/L (3.5-4.5) H D 01/20/17 02:23 Carbon Dioxide 31 mEq/L (19-29) H 01/20/17 02:23 BUN 27 mg/dL (8-26) H 01/20/17 02:23 Creatinine 1.59 mg/dL (0.72-1.25) H 01/20/17 02:23 Est GFR ( Amer) 53 (> 60) L 01/20/17 02:23 Est GFR (Non-Af Amer) 43 (> 60) L 01/20/17 02:23 Calcium 7.7 mg/dL (8.6-10.8) L 01/20/17 02:23 B-Natriuretic Peptide 489 pg/mL (0-100) H 01/13/17 02:30 Albumin 2.2 g/dL (3.5-5.0) L 01/13/17 02:30 Globulin 5.1 g/dL (2.4-3.5) H 01/13/17 02:30 Albumin/Globulin Ratio 0.4 (1.1-2.2) L 01/13/17 02:30 HDL Cholesterol 25 mg/dL (40-59) L 01/13/17 02:30 - Clinical Findings Intake & Output: Intake & Output 01/20/17 01/20/17 01/21/17 15:59 23:59 07:59 Intake Total 1360 / 1360 1000 / 1000 Output Total 300 / 300 360 / 360 480 / 480 Balance 1060 / 1060 640 / 640 -480 / -480 Weight 102.6 kg Consult Discharge Plan - Plan [facility]errals: [facility] Care Provider[facility] - ([facility])
[2017-01-21] MEDS: Isosorbide MONOnitrate (24 HR) 60 MG TAB.ER.24H PO SCH (08:34)
[2017-01-21] MEDS: amLODIPine 5 MG TABLET PO SCH (08:34)
[2017-01-21] MEDS: Gabapentin 400 MG CAPSULE PO SCH ×3 (08:34→20:03)
[2017-01-21] MEDS: levoFLOXacin 500 MG TABLET PO SCH (08:35)
[2017-01-21 08:57] LABS: BUN/Creatinine Ratio 17 (6-26); Blood Urea Nitrogen 18 mg/dL (8-26); Calcium 7.9 mg/dL (8.6-10.8); Carbon Dioxide 26 mEq/L (19-29); Chloride 101 mEq/L (98-109); Glucose 107 mg/dL (70-99); Osmolality,Calculated 284 (280-300); Potassium 4.3 mEq/L (3.5-4.5); Sodium 136 mEq/L (136-145); eGFR For African Americans > 60 (> 60); eGFR For Non-African Americans > 60 (> 60)
[2017-01-21 09:07] LABS: Basophils % 0.5 %; Eosinophils # 0.3 K/mcL (0.0-0.6); Eosinophils % 3.7 %; Hemoglobin 10.9 g/dL (12.9-16.9); Immature Granulocytes % 1.2 % (0-4); Lymphocytes % 12.1 %; Mean Corpuscular HGB Conc 30.3 g/dL (31.6-35.5); Mean Corpuscular Hemoglobin 24.9 pg (28.0-33.3); Mean Corpuscular Volume 82.2 fL (83.0-100.0); Mean Platelet Volume 9.4 fL (9.4-12.4); Monocytes # 0.8 K/mcL (0.0-1.3); Monocytes % 9.3 %; Neutrophils # 6.1 K/mcL (1.6-8.9); Platelet Count 258 K/mcL (140-400); Red Blood Count 4.38 M/mcL (4.19-5.50); Red Cell Distribution Width 16.4 % (11.5-14.5); Segmented Neutrophils % 73.2 %
--- NOTE | 2017-01-21 09:58 | Event Note ---
Date of Encounter: 01/21/17 Time of Encounter: 09:56 Chest tube became dislodged overnight repeat chest x-ray was stable patient otherwise clinically stable. Pulmonary has no further recommendations at this time complete antimicrobials for pneumonia pleural fluid analysis consistent with exudative likely parapneumonic effusion without evidence of malignancy recommend tobacco cessation [facility] with [facility] or can also be seen at [facility] per patient's preference
--- NOTE | 2017-01-21 10:43 | Discharge Summary ---
<Ronald Patel - Last Filed: 01/21/17 11:40> Date of Encounter: 01/21/17 Time of Encounter: 08:30 - Discharge Diagnosis (1) HCAP (healthcare-associated pneumonia) Priority: Primary Status: Acute Comments: Patient will be given 4 more doses of Levaquin 500 by mouth daily to complete a 10 day course. (2) Loculated pleural effusion Priority: Secondary Status: Acute (3) COPD (chronic obstructive pulmonary disease) Priority: Secondary Status: Chronic Qualifiers: COPD type: COPD with acute exacerbation Qualified Code(s): J44.1 - Chronic obstructive pulmonary disease with (acute) exacerbation (4) Hypertension Priority: Secondary Status: Acute Qualifiers: Hypertension type: essential hypertension Qualified Code(s): I10 - Essential (primary) hypertension (5) Hemoptysis Priority: Secondary Status: Resolved (6) Dilated tracheostomy stoma Priority: Secondary Status: Acute (7) Hyperkalemia Priority: Secondary Status: Acute - Discharge Medications Prescriptions: Levofloxacin [Levaquin] 500 mg PO DAILY #4 tablet Home Medications: Acetaminophen [Tylenol Arthritis] 650 mg PO Q6H PRN 01/12/17 [History] Albuterol Sulfate [Albuterol Inhaler] 2 puff IH Q6HR 01/12/17 [History] Amoxicillin/Clavulanate [Augmentin] 875 mg PO BIDWM 01/12/17 [History] Atorvastatin [Lipitor] 40 mg PO HS 01/12/17 [History] Clopidogrel Bisulfate [Plavix] 75 mg PO DAILY 01/12/17 [History] Cyclobenzaprine [Flexeril] 10 mg PO TID 01/12/17 [History] Ferrous Sulfate [Iron] 325 mg PO BID 01/12/17 [History] Gabapentin [Neurontin] 800 mg PO TID 01/12/17 [History] Isosorbide MONOnitrate (24 HR) [Imdur] 60 mg PO DAILY 01/12/17 [History] Levothyroxine [Synthroid] 25 mcg PO DAILY 01/12/17 [History] Melatonin [Melatin] 3 mg PO HS 01/12/17 [History] Omeprazole 20 mg PO BID 01/12/17 [History] Sertraline [Zoloft] 100 mg PO DAILY 01/12/17 [History] risperiDONE [Risperdal] 1 mg PO HS 01/12/17 [History] Levofloxacin [Levaquin] 500 mg PO DAILY #4 tablet 01/21/17 [Rx] Allergies/Adverse Reactions: 3 Allergy/AdvReac Type Severity Reaction Status Date / Time aspirin Allergy See Verified 01/12/17 10:46 Comments codeine Allergy See Verified 01/12/17 10:46 Comments Procedures/tests Complete & Pending: Procedures Performed prior 72 hours Category Date Time Status CT chest wo con [CT] Routine Cat Scan 01/20/17 12:41 Draft Retroperitoneal Ultrasound - Complete [US Exams 01/20/17 19:00 Draft retroperitoneal comp] [US] Routine Date of admission: 01/12/17 14:10 Primary care physician: [facility]CP [facility] Consults: 01/12/17 16:48 Consult to Displayer [CONS] Routine Reason for SW Consult: [facility] patient. 01/12/17 16:51 Consult to Pulmonology [CONS] Routine Consulting Provider: Pulm Crit [facility] Reason for Consult: ?Left lower lobe pneumonia/empyema, hemoptysis. For possible bronchoscopy Call Completed: Yes 01/13/17 09:57 Consult to Interventional Radiology [CONS] Routine Consulting Provider: Radiology Interventional Cols Reason for Consult: diagnostic thoracentesis, possibl empyema Time Notified: 09:58 Call Completed: Yes 01/21/17 06:21 Consult to Cardiothoracic Surgery [CONS] Routine Consulting Provider: Cardiothoracic Surgery [place] Reason for Consult: Patient had chest tube for empyema. Developed 1+ air leak this morning around 0400. Noted that patient pulled chest tube out while sleeping between the hours of 0400 and 0600. Consult placed per Dr Montaño Call Completed: No Discharging clinician: Ronald Patel Anticipated date of discharge: 01/21/17 - Patient Status Disposition: Transfer [facility] Condition: Fair Overall status at discharge: patient is progressing back to baseline - Discharge Instructions Instructions: Pleural Effusion (DC), Hyperkalemia (DC), Pneumonia (DC) Follow [facility] With: [facility]Primary Care Provider] - (Patient will follow up with the [facility] in[facility] PCP) - Diet and Activity Diet: advance to your usual diet Hospital course: Mr. Echavarria is a 71 year old male who is a resident at the [facility] psych unit with a past medical history of COPD and tracheostomy. He presented to the hospital on 01/12/17 with a cough and vomiting of small amount of blood. Patient stated that on the morning of admission, he had 2 episodes where he vomited and saw a small speck of blood each time. Patient has an open trach since 1999. He stated that the small streaks of blood were coming from his mouth and not his stoma. He otherwise does not complain of any pain on admission. He denied having any shortness of breath, chest pain, abdominal pain , or nausea. Patient's vital signs were within normal limits on presentation with the exception of his blood pressure, which was elevated at 150/60. Patient 's white count was 5.2. CT a demonstrated the presence of pneumonia and a loculated pleural effusion on the right side concerning for possible empyema. Pulmonology was consulted and recommended that the patient be started on broad-spectrum antibiotics. He was started on vancomycin, Zosyn, and Levaquin. He was also started on Solu-Medrol and duo nebs. Blood culture was negative. Repeat CT of the chest on 01/14/17 demonstrated the following: old areas of consolidation in the bilateral lower lobes and lingula have improved since prior examination. Repeat CT of the chest was performed on 01/16/17: No change in size of the right -sided pleural effusion. Patient also has bibasilar atelectasis. Diagnostic thoracentesis was performed on 01/11/17. Per the thoracentesis report, no bacteria were identified. Pleural fluid had a pH of 8, a bloody appearance, 80% leukocytes, and light criteria was indicative of exudative effusion. Pulmonology discussed the patient's case with cardiothoracic surgery , and whether or not surgery would be indicated in this patient. Cardiothoracic surgery determined that based on the patient's condition, surgical intervention would likely make the patient worse. After the tube was inserted, pulmonology recommended that the amount of fluid drained would be less than 30 mL in a 24-hour period before the patient could return to the [facility]. Patient was draining a considerable amount of fluid in the days following the insertion of his chest tube. The amount of fluid ranged between 50-80 mL in a 24-hour period. During his stay in the hospital, patient had an elevated systolic blood pressure ranging from 160-180. Patient was started on amlodipine 10 mg by mouth daily, and after this, his blood pressure was well-controlled. Patient also had several episodes of hyperkalemia during his stay. On 3 different occasions, Kayexalate was ordered with his potassium was elevated. On date of discharge, patient's potassium is 4.3. After the insertion of the chest tube, patient had no symptoms related to his initial presentation. He had no shortness of breath, he had no hemoptysis, no chest pain. He had no sputum production or cough. Patient appeared to be eager to return to the [facility] after the chest tube was inserted. On 01/21/17, patient was seen by pulmonology. Per medical research tech's event note, chest tube became dislodged overnight. A chest x-ray was performed, which showed no acute process. Patient was clinically stable. Pulmonology recommends continuing patient's antimicrobials. Patient will be discharged with 4 more doses of Levaquin to complete a 10 day course. - Time Spent with Patient Total time spent providing and/or coordinating discharge services: Greater than 30 minutes (41 minutes) - Constitutional Vitals: Temp Pulse Resp BP Pulse Ox 99.0 F 101 15 143/81 90 01/21/17 07:00 01/21/17 07:00 01/21/17 07:00 01/21/17 07:00 01/21/17 07:00 General appearance: Present: pleasant, no acute distress, answers questions appropriately - Head Head exam: Present: atraumatic, normocephalic - Eye Eye exam: Present: PERRL, conjuntiva pink, sclera anicteric Pupils: Present: PERRL - Neck Neck exam general surgery: Present: supple, trachea midline. Absent: lymphadenopathy Additional comments: Trach observed. - Respiratory Respiratory exam: Present: CTAB. Absent: accessory muscle use, rales, rhonchi, wheezes - Cardiovascular Cardiovascular exam: Present: RRR, +S1, +S2. Absent: diastolic murmur, gallop, rubs, systolic murmur - Skin Skin exam: Present: dry, intact <Dilshad Wright - Last Filed: 01/21/17 18:39> Date of Encounter: 01/21/17 Procedures/tests Complete & Pending: Procedures Performed prior 72 hours Category Date Time Status CT chest wo con [CT] Routine Cat Scan 01/20/17 12:41 Draft Retroperitoneal Ultrasound - Complete [US Exams 01/20/17 19:00 Draft retroperitoneal comp] [US] Routine Date of admission: 01/12/17 14:10 Primary care physician: PCP [facility] Consults: 01/12/17 16:48 Consult to Displayer [CONS] Routine Reason for SW Consult: [facility]. 01/12/17 16:51 Consult to Pulmonology [CONS] Routine Consulting Provider: Pulm Crit [facility] [place] Reason for Consult: ?Left lower lobe pneumonia/empyema, hemoptysis. For possible bronchoscopy Call Completed: Yes 01/13/17 09:57 Consult to Interventional Radiology [CONS] Routine Consulting Provider: Radiology Interventional Cols Reason for Consult: diagnostic thoracentesis, possibl empyema Time Notified: 09:58 Call Completed: Yes 01/21/17 06:21 Consult to Cardiothoracic Surgery [CONS] Routine Consulting Provider: [facility]acic [facility] [place] Reason for Consult: Patient had chest tube for empyema. Developed 1+ air leak this morning around 0400. Noted that patient pulled chest tube out while sleeping between the hours of 0400 and 0600. Consult placed per Dr Montaño Call Completed: No Hospital course: Mr. Echavarria is a 71 year old male - Time Spent with Patient Total time spent providing and/or coordinating discharge services: - Constitutional Vitals: Temp Pulse Resp BP Pulse Ox 99.0 F 96 15 151/84 90 01/21/17 16:01 01/21/17 16:01 01/21/17 16:01 01/21/17 16:01 01/21/17 16:01 - Attending Attestation I conducted a face to face diagnostic evaluation of this patient and my medical decision-making was reviewed with the Resident Physician, Dr. Ronald Patel. I agree with the documented findings, disposition and treatment plan as described except to the extent set forth below: Patient potassium was 5.3 yesterday, down to 4.3 today after 1 dose of Kayexalate. Creatinine improved. Plan: We will repeat labs tomorrow to continue to see a trend in the right direction. I discussed the case with [facility] accepting physician and if labs continued to normalize he will likely be discharged to the [facility] in the morning.
[2017-01-21] MEDS: risperiDONE 1 MG TABLET PO SCH (20:02)
[2017-01-21] MEDS: Melatonin 3 MG TABLET PO SCH (20:03)
[2017-01-22] MEDS: *HR* Morphine 2 MG/ML SYRINGE IVP PRN ×2 (03:17→21:43)
[2017-01-22] MEDS: Levothyroxine 25 MCG TABLET PO SCH (06:28)
[2017-01-22 08:55] LABS: BUN/Creatinine Ratio 16 (6-26); Blood Urea Nitrogen 15 mg/dL (8-26); Carbon Dioxide 25 mEq/L (19-29); Chloride 99 mEq/L (98-109); Glucose 94 mg/dL (70-99); Osmolality,Calculated 279 (280-300); Potassium 4.2 mEq/L (3.5-4.5); Sodium 134 mEq/L (136-145); eGFR For African Americans > 60 (> 60); eGFR For Non-African Americans > 60 (> 60)
[2017-01-22] MEDS: Gabapentin 400 MG CAPSULE PO SCH ×3 (08:58→20:53)
[2017-01-22] MEDS: Isosorbide MONOnitrate (24 HR) 60 MG TAB.ER.24H PO SCH (08:58)
[2017-01-22] MEDS: levoFLOXacin 500 MG TABLET PO SCH (08:59)
[2017-01-22] MEDS: amLODIPine 5 MG TABLET PO SCH (08:59)
[2017-01-22] MEDS ORDERED: Furosemide 20 MG/2 ML VIAL IVP ONE (13:45)
[2017-01-22 15:45] LABS: ABG Base Excess 3 mEq/L (-2 to 3); ABG HCO3 28 mEq/L (21-27); ABG Oxygen Saturation 88 % (95-98); ABG PCO2 47 mmHg (35-45); ABG PH 7.39 pH Units (7.32-7.45); ABG PO2 56 mmHg (85-104); ABG TCO2 30 mEq/L (20-26)
--- NOTE | 2017-01-22 16:47 | Pulmonology Progress Note ---
Date of Encounter: 01/22/17 Time of Encounter: 16:45 Assessment and Plan (1) Acute and chronic respiratory failure with hypoxia Current Visit: Yes Status: Acute 71yo Gentleman admitted with pneumonia and parapneumonic effusion status post chest tube placement with drainage resulting in persistent loculated hydropneumothorax related to underlying lung entrapment/trapped lung physiology. He has been successfully treated for pneumonia and clinically quite stable Personally reviewed his chest x-ray which looks like worsening cardiogenic pulmonary edema with worsening bilateral effusions BNP is also elevated greater than 400 he has lower extremity edema supporting this diagnosis Would recommend diuresis over the next 24-48 hours with goal 1-2 L negative we will monitoring kidney function and electrolytes daily replacement per primary hospitalist service. He will need follow-up CT scan in 4-6 weeks with outpatient pulmonary follow-up either at the [facility] or [facility] I gave him my card If clinical evidence of infection arises such as worsening leukocytosis pyrexia or worsening clinical instability would recommend formal CT of the thorax I do not think that repeat thoracentesis or chest tube placement to be of significant benefit in this situation Continue to wean FiO2 to keep saturation around 89 and 92% I reinforced the need to cease from tobacco use entirely. (2) Loculated pleural effusion Current Visit: Yes Status: Acute (3) Pleural effusion exudative Current Visit: Yes Status: Acute (4) Tobacco dependence Current Visit: Yes Status: Chronic (5) HCAP (healthcare-associated pneumonia) Current Visit: Yes Status: Acute (6) COPD (chronic obstructive pulmonary disease) Current Visit: Yes Status: Chronic Qualifiers: COPD type: COPD with acute exacerbation Qualified Code(s): J44.1 - Chronic obstructive pulmonary disease with (acute) exacerbation Subjective Principal diagnosis: SOB Interval history: Patient noted to desat on room air. He is otherwise hemodynamically stable in no distress. Pulmonary was called to evaluate the patient for this new oxygen requirement near the time of discharge. He has been afebrile and he says that he feels the same as he has he does report some lower extremity swelling Objective PUL Vital signs: Last Vital Signs Temp 98.9 F 01/22/17 16:33 Pulse 98 01/22/17 16:33 Resp 20 01/22/17 16:33 BP 130/76 01/22/17 16:33 Pulse Ox 91 01/22/17 16:33 General appearance: no acute distress Auscultation: bilateral: rales Cardiovascular: regular rate and rhythm Gastrointestinal: normoactive bowel sounds Extremities: edema (2+ lower extremity edema which is symmetric) Results - Laboratory Findings CBC and BMP: 01/21/17 08:37 01/22/17 08:30 ABG ABG pH 7.39 pH Units (7.32-7.45) 01/22/17 14:01 ABG pCO2 47 mmHg (35-45) H 01/22/17 14:01 ABG pO2 56 mmHg (85-104) L 01/22/17 14:01 ABG O2 Saturation 88 % (95-98) L 01/22/17 14:01 PT/INR, D-dimer PT 13.0 Seconds (9.4-12.1) H 01/13/17 02:30 Abnormal lab findings: Abnormal lab results Hgb 10.9 g/dL (12.9-16.9) L 01/21/17 08:37 Hct 36.0 % (37.5-50.1) L 01/21/17 08:37 MCV 82.2 fL (83.0-100.0) L 01/21/17 08:37 MCH 24.9 pg (28.0-33.3) L 01/21/17 08:37 MCHC 30.3 g/dL (31.6-35.5) L 01/21/17 08:37 RDW 16.4 % (11.5-14.5) H 01/21/17 08:37 Nucleated RBCs/100 WBC 0.4 /100 WBC (0) H 01/13/17 02:30 PT 13.0 Seconds (9.4-12.1) H 01/13/17 02:30 ABG pCO2 47 mmHg (35-45) H 01/22/17 14:01 ABG pO2 56 mmHg (85-104) L 01/22/17 14:01 ABG HCO3 28 mEq/L (21-27) H 01/22/17 14:01 ABG Total CO2 30 mEq/L (20-26) H 01/22/17 14:01 ABG O2 Saturation 88 % (95-98) L 01/22/17 14:01 Sodium 134 mEq/L (136-145) L 01/22/17 08:30 Calculated Osmolality 279 (280-300) L 01/22/17 08:30 Calcium 8.0 mg/dL (8.6-10.8) L 01/22/17 08:30 B-Natriuretic Peptide 411 pg/mL (0-100) H 01/22/17 08:30 Albumin 2.2 g/dL (3.5-5.0) L 01/13/17 02:30 Globulin 5.1 g/dL (2.4-3.5) H 01/13/17 02:30 Albumin/Globulin Ratio 0.4 (1.1-2.2) L 01/13/17 02:30 HDL Cholesterol 25 mg/dL (40-59) L 01/13/17 02:30 - Diagnostic Findings Chest x-ray: report reviewed, image reviewed - Clinical Findings Intake & Output: Intake & Output 01/22/17 01/22/17 01/22/17 07:59 15:59 23:59 Intake Total 820 / 820 Output Total 400 / 400 600 / 600 Balance -400 / -400 220 / 220 Consult Discharge Plan - Plan Instructions: Pleural Effusion (DC), Hyperkalemia (DC), Pneumonia (DC) [facility]errals: [facility] [Primary Care Provider] - ([facility] with [facility]) Prescriptions: Levofloxacin [Levaquin] 500 mg PO DAILY #4 tablet
--- NOTE | 2017-01-22 17:27 | Internal Med Progress Note ---
<Ronald Patel - Last Filed: 01/22/17 17:35> Date of Encounter: 01/22/17 Time of Encounter: 15:00 - Assessment and plan (1) Loculated pleural effusion Current Visit: Yes Status: Acute Assessment and plan: CT chest: Right pigtail pleural catheter terminates within loculated right- sided pleural effusion. Diagnostic thoracentesis was performed on 01/13/17. Per thoracentesis report, no bacteria were identified. Pleural fluid had a pH of 8, bloody appearance, 80% lymphocytes; light criteria indicative of exudative effusion. Repeat CT scan performed on 01/16/17: Demonstrated no changes in the right sided effusion. Also revealed the presence of bibasilar atelectasis. Per pulmonology progress note, will discuss with cardiothoracic surgery. Pulmonology recommends that the amount of fluid drained is less than 30 mL per 24 hours; patient is still draining too much fluid or discharge. Per pulmonology: -Chest x-ray performed today demonstrates worsening cardiogenic pulmonary edema , worsening bilateral effusions. -BNP greater than 400. Lower extremity edema. -Pulmonology recommends diuresis over the next 24-48 hours with a goal 1-2 L negative. -Monitor kidney function and electrolytes. -Patient will need a follow-up CT scan in 4-6 weeks with outpatient pulmonology follow[facility]up at either the [place] or [facility]. -If there is any evidence of infection such as worsening leukocytosis, CT of the thorax will be indicated. -Pulmonology does not recommend thoracentesis or chest tube placement at this time. -Continue to wean FiO2 to keep saturation between 89-92%. (2) HCAP (healthcare-associated pneumonia) Current Visit: Yes Status: Acute Assessment and plan: CTA on 01/12/17: demonstrated pneumonia and loculated pleural effusion on the right side. Blood CX negative. Repeat CT of the chest on 01/14/17: reveals areas of consolidation in the bilateral lower lobes and lingula have mildly improved since prior examination. Repeat CT chest on 01/16/17: No change in size of the right-sided effusion, bibasilar atelectasis. Pneumonia appears to have resolved (3) COPD (chronic obstructive pulmonary disease) Current Visit: Yes Status: Chronic Assessment and plan: Plan: -DuoNeb 3ml IH Q4 PRN Qualifiers: COPD type: COPD with acute exacerbation Qualified Code(s): J44.1 - Chronic obstructive pulmonary disease with (acute) exacerbation (4) Hypertension Current Visit: Yes Status: Acute Assessment and plan: Amlodipine 10 mg PO daily Qualifiers: Hypertension type: essential hypertension Qualified Code(s): I10 - Essential (primary) hypertension (5) Hemoptysis Current Visit: Yes Status: Resolved Assessment and plan: Patient has not had hemoptysis since his admission. Per pulmonology, there is no need for bronchoscopy. (6) Dilated tracheostomy stoma Current Visit: Yes Status: Acute Assessment and plan: Tracheostomy since 1999 Stable - Subjective Interval history: Patient seen and examined at bedside this afternoon. Patient was satting in the low 80s last night. Is now on oxygen. Bilateral lower extremity edema present. Does not appear in any acute distress at this time. - Constitutional Vitals: Temp Pulse Resp BP Pulse Ox 98.9 F 98 20 130/76 91 01/22/17 16:33 01/22/17 16:33 01/22/17 16:33 01/22/17 16:33 01/22/17 16:33 General appearance: Present: pleasant, no acute distress, answers questions appropriately - Head Head exam: Present: atraumatic, normocephalic - Eye Eye exam: Present: PERRL, conjuntiva pink, sclera anicteric Pupils: Present: PERRL - Neck Neck exam general surgery: Present: supple, trachea midline. Absent: lymphadenopathy Additional comments: Trach observed; patient currently on oxygen. - Respiratory Respiratory exam: Present: decreased breath sounds. Absent: accessory muscle use, rales, rhonchi, wheezes - Cardiovascular Cardiovascular exam: Present: RRR, +S1, +S2. Absent: diastolic murmur, gallop, rubs, systolic murmur - Extremities Exam Extremities exam: Present: warm, radial pulses palpable and symmetrical. Absent : calf tenderness, cyanotic, pedal edema - Skin Skin exam: Present: dry, intact Internal Medicine: Result - Labs CBC & Chem 7: 01/21/17 08:37 01/22/17 08:30 Labs: BMP 01/22/17 08:30 Sodium 134 L Potassium 4.2 Chloride 99 Carbon Dioxide 25 BUN 15 Creatinine 0.96 Glucose 94 Calcium 8.0 L - ABG Interpretation ABG results: ABG ABG pH 7.39 pH Units (7.32-7.45) 01/22/17 14:01 ABG pCO2 47 mmHg (35-45) H 01/22/17 14:01 ABG pO2 56 mmHg (85-104) L 01/22/17 14:01 ABG O2 Saturation 88 % (95-98) L 01/22/17 14:01 PT/INR, D-dimer PT 13.0 Seconds (9.4-12.1) H 01/13/17 02:30 - Impressions Impressions Retroperitoneum Ultrasound 01/20/17 19:00 IMPRESSION: Symmetric bilateral renal atrophy. No obstruction. Unremarkable urinary bladder ultrasound. Moderate postvoid residual. D/ / 01/20/2017 22:08:58 Bernabe Roberson MD / Erendira Palacios Interpreting Provider: Bernabe Roberson MD Chest X-Ray 01/22/17 13:42 IMPRESSION: Persistent gas and fluid collection in the right lung base, overall unchanged compared to prior radiograph. Findings suggestive of mild edema with mild left basilar atelectasis versus pneumonia. D/ / Evangelina Boogie MD / Evangelina Boogie MD Interpreting Provider: Evangelina Boogie MD Consult Discharge Plan - Plan Instructions: Pleural Effusion (DC), Hyperkalemia (DC), Pneumonia (DC) [facility] Provider[facility] - ([facility] will follow up [facility]) Prescriptions: Levofloxacin [Levaquin] 500 mg PO DAILY #4 tablet <Dilshad Wright - Last Filed: 01/23/17 17:59> Date of Encounter: 01/22/17 - Constitutional Vitals: Temp Pulse Resp BP Pulse Ox 97.9 F 90 18 138/78 93 01/23/17 15:53 01/23/17 15:53 01/23/17 15:53 01/23/17 15:53 01/23/17 15:53 Internal Medicine: Result - Labs CBC & Chem 7: 01/23/17 05:12 12/07/17 05:12 Labs: Short CBC 01/23/17 Range/Units 05:12 WBC 6.9 (4.3-11.1) K/mcL Hgb 9.1 L D (12.9-16.9) g/dL Hct 30.1 L (37.5-50.1) % Plt Count 207 (140-400) K/mcL BMP 01/23/17 05:12 Sodium 137 Potassium 4.2 Chloride 101 Carbon Dioxide 27 BUN 16 Creatinine 0.98 Glucose 97 Calcium 7.7 L - ABG Interpretation ABG results: ABG ABG pH 7.39 pH Units (7.32-7.45) 01/22/17 14:01 ABG pCO2 47 mmHg (35-45) H 01/22/17 14:01 ABG pO2 56 mmHg (85-104) L 01/22/17 14:01 ABG O2 Saturation 88 % (95-98) L 01/22/17 14:01 PT/INR, D-dimer PT 13.0 Seconds (9.4-12.1) H 01/13/17 02:30 - Impressions Impressions Chest CT 01/22/17 16:01 IMPRESSION: Removal of right basilar chest tube compared to prior examination. Otherwise, stable examination with loculated hydropneumothorax at the right lung base, bibasilar scarring and bibasilar rounded atelectasis. No significant change since prior. D/ / 01/22/2017 17:53:30 Reji Sawyer MD / dereck Interpreting Provider: Reji Sawyer MD - Attending Attestation I conducted a face to face diagnostic evaluation of this patient and my medical decision-making was reviewed with the Resident Physician, Dr. Ronald Patel. I agree with the documented findings, disposition and treatment plan as described except to the extent set forth below: Patient was hypoxic this morning. On exam he is in no acute distress. Lung exam reveals diminished breath sounds at both bases. There is lower extremity edema 2+. Plan: Start Lasix. Continue antibiotics and bronchodilators. Supplemental oxygen by trach mask as needed to maintain saturation above 88%.
[2017-01-22] MEDS: Melatonin 3 MG TABLET PO SCH (20:53)
[2017-01-22] MEDS: risperiDONE 1 MG TABLET PO SCH (20:53)
[2017-01-22] MEDS: *HR* OxyCODONE Immed Rel 5 MG TABLET PO PRN (20:54)
[2017-01-23] MEDS: *HR* OxyCODONE Immed Rel 5 MG TABLET PO PRN (03:16)
[2017-01-23 06:07] LABS: Hematocrit 30.1 % (37.5-50.1); Mean Corpuscular HGB Conc 30.2 g/dL (31.6-35.5); Mean Corpuscular Hemoglobin 24.9 pg (28.0-33.3); Mean Corpuscular Volume 82.5 fL (83.0-100.0); Mean Platelet Volume 10.1 fL (9.4-12.4); Platelet Count 207 K/mcL (140-400); Red Blood Count 3.65 M/mcL (4.19-5.50); Red Cell Distribution Width 16.9 % (11.5-14.5)
[2017-01-23 06:10] LABS: Hemoglobin 9.1 g/dL (12.9-16.9)
[2017-01-23 06:21] LABS: BUN/Creatinine Ratio 16 (6-26); Blood Urea Nitrogen 16 mg/dL (8-26); Calcium 7.7 mg/dL (8.6-10.8); Carbon Dioxide 27 mEq/L (19-29); Chloride 101 mEq/L (98-109); Glucose 97 mg/dL (70-99); Osmolality,Calculated 285 (280-300); Potassium 4.2 mEq/L (3.5-4.5); Sodium 137 mEq/L (136-145); eGFR For African Americans > 60 (> 60); eGFR For Non-African Americans > 60 (> 60)
[2017-01-23] MEDS: Levothyroxine 25 MCG TABLET PO SCH (08:56)
[2017-01-23] MEDS: levoFLOXacin 500 MG TABLET PO SCH (08:57)
[2017-01-23] MEDS: Lisinopril 20 MG TABLET PO SCH (08:57)
[2017-01-23] MEDS: Isosorbide MONOnitrate (24 HR) 60 MG TAB.ER.24H PO SCH (08:57)
[2017-01-23] MEDS: amLODIPine 5 MG TABLET PO SCH (08:57)
[2017-01-23] MEDS: Gabapentin 400 MG CAPSULE PO SCH ×3 (08:57→20:24)
[2017-01-23] MEDS: *HR* Morphine 2 MG/ML SYRINGE IVP PRN ×3 (09:06→20:24)
--- NOTE | 2017-01-23 10:07 | Internal Med Progress Note ---
<Ronald Patel - Last Filed: 01/23/17 11:30> Date of Encounter: 01/23/17 Time of Encounter: 10:00 - Assessment and plan (1) Loculated pleural effusion Current Visit: Yes Status: Acute Assessment and plan: CT chest: Right pigtail pleural catheter terminates within loculated right- sided pleural effusion. Diagnostic thoracentesis was performed on 01/13/17. Per thoracentesis report, no bacteria were identified. Pleural fluid had a pH of 8, bloody appearance, 80% lymphocytes; light criteria indicative of exudative effusion. Repeat CT scan performed on 01/16/17: Demonstrated no changes in the right sided effusion. Also revealed the presence of bibasilar atelectasis. Chest tube was removed; shortly after, patient's O2 saturation dropped into the 80s. Per pulmonology: -Chest x-ray performed today demonstrates worsening cardiogenic pulmonary edema , worsening bilateral effusions. -BNP greater than 400. Lower extremity edema. -Pulmonology recommends diuresis over the next 24-48 hours with a goal 1-2 L negative. -Monitor kidney function and electrolytes. -Patient will need a follow-up CT scan in 4-6 weeks with outpatient pulmonology follow-up at either the [place] or [facility]. -If there is any evidence of infection such as worsening leukocytosis, CT of the thorax will be indicated. -Pulmonology does not recommend thoracentesis or chest tube placement at this time. -Continue to wean FiO2 to keep saturation between 89-92%. Repeat CT Scan performed on 01/22/17: Stable with loculated hydropneumothorax at the right lung base, bibasilar scarring and bibasilar rounded atelectasis. No significant changed since prior exam. -Would appreciate further recommendations from pulmonology. (2) HCAP (healthcare-associated pneumonia) Current Visit: Yes Status: Acute Assessment and plan: CTA on 01/12/17: demonstrated pneumonia and loculated pleural effusion on the right side. Blood CX negative. Repeat CT of the chest on 01/14/17: reveals areas of consolidation in the bilateral lower lobes and lingula have mildly improved since prior examination. Repeat CT chest on 01/16/17: No change in size of the right-sided effusion, bibasilar atelectasis. Pneumonia appears to have resolved (3) COPD (chronic obstructive pulmonary disease) Current Visit: Yes Status: Chronic Assessment and plan: Plan: -DuoNeb 3ml IH Q4 PRN Qualifiers: COPD type: COPD with acute exacerbation Qualified Code(s): J44.1 - Chronic obstructive pulmonary disease with (acute) exacerbation (4) Hypertension Current Visit: Yes Status: Acute Assessment and plan: Amlodipine 10 mg PO daily Qualifiers: Hypertension type: essential hypertension Qualified Code(s): I10 - Essential (primary) hypertension (5) Hemoptysis Current Visit: Yes Status: Resolved Assessment and plan: Patient has not had hemoptysis since his admission. Per pulmonology, there is no need for bronchoscopy. (6) Dilated tracheostomy stoma Current Visit: Yes Status: Acute Assessment and plan: Tracheostomy since 1999 Stable (7) Pedal edema Current Visit: Yes Status: Acute Assessment and plan: Continue lasix - Subjective Interval history: Patient seen and examined at bedside this morning. Patient reports no acute distress. No SOB, cough, or wheezing. Patient was started on lasix; reports that he has been urinating very frequently. No complaints at this time. - Constitutional Vitals: Temp Pulse Resp BP Pulse Ox 97.5 F L 90 18 137/77 90 01/23/17 06:57 01/23/17 06:57 01/23/17 06:57 01/23/17 06:57 01/23/17 06:57 General appearance: Present: pleasant, no acute distress, answers questions appropriately - Head Head exam: Present: atraumatic, normocephalic - Eye Eye exam: Present: PERRL, conjuntiva pink, sclera anicteric Pupils: Present: PERRL - Neck Neck exam general surgery: Present: supple, trachea midline. Absent: lymphadenopathy - Respiratory Respiratory exam: Present: CTAB. Absent: accessory muscle use, rales, rhonchi, wheezes - Cardiovascular Cardiovascular exam: Present: RRR, +S1, +S2. Absent: diastolic murmur, gallop, rubs, systolic murmur - Extremities Exam Extremities exam: Present: pedal edema - Skin Skin exam: Present: dry, intact Internal Medicine: Result - Labs CBC & Chem 7: 01/23/17 05:12 01/23/17 05:12 Labs: Short CBC 01/23/17 Range/Units 05:12 WBC 6.9 (4.3-11.1) K/mcL Hgb 9.1 L D (12.9-16.9) g/dL Hct 30.1 L (37.5-50.1) % Plt Count 207 (140-400) K/mcL [facility] 01/23/17 05:12 Sodium 137 Potassium 4.2 Chloride 101 Carbon Dioxide 27 BUN 16 Creatinine 0.98 Glucose 97 Calcium 7.7 L - ABG Interpretation ABG results: ABG ABG pH 7.39 pH Units (7.32-7.45) 01/22/17 14:01 ABG pCO2 47 mmHg (35-45) H 01/22/17 14:01 ABG pO2 56 mmHg (85-104) L 01/22/17 14:01 ABG O2 Saturation 88 % (95-98) L 01/22/17 14:01 PT/INR, D-dimer PT 13.0 Seconds (9.4-12.1) H 01/13/17 02:30 - Impressions Impressions Chest X-Ray 01/22/17 13:42 IMPRESSION: Persistent gas and fluid collection in the right lung base, overall unchanged compared to prior radiograph. Findings suggestive of mild edema with mild left basilar atelectasis versus pneumonia. D/ / Evangelina Boogie MD / Evangelina Boogie MD Interpreting Provider: Evangelina Boogie MD Chest CT 01/22/17 16:01 IMPRESSION: Removal of right basilar chest tube compared to prior examination. Otherwise, stable examination with loculated hydropneumothorax at the right lung base, bibasilar scarring and bibasilar rounded atelectasis. No significant change since prior. D/ / 01/22/2017 17:53:30 Reji Sawyer MD / dereck Interpreting Provider: Reji Sawyer MD Consult Discharge Plan - Plan Instructions: Pleural Effusion (DC), Hyperkalemia (DC), Pneumonia (DC) [facility] Provider[facility] - (Patient will follow up with the [place] [facility] PCP) Prescriptions: Levofloxacin [Levaquin] 500 mg PO DAILY #4 tablet <Dilshad Wright - Last Filed: 01/23/17 18:55> Date of Encounter: 01/23/17 - Constitutional Vitals: Temp Pulse Resp BP Pulse Ox 97.9 F 90 18 138/78 93 01/23/17 15:53 01/23/17 15:53 01/23/17 15:53 01/23/17 15:53 01/23/17 15:53 Internal Medicine: Result - Labs CBC & Chem 7: 01/23/17 05:12 01/23/17 05:12 Labs: Short CBC 01/23/17 Range/Units 05:12 WBC 6.9 (4.3-11.1) K/mcL Hgb 9.1 L D (12.9-16.9) g/dL Hct 30.1 L (37.5-50.1) % Plt Count 207 (140-400) K/mcL BMP 01/23/17 05:12 Sodium 137 Potassium 4.2 Chloride 101 Carbon Dioxide 27 BUN 16 Creatinine 0.98 Glucose 97 Calcium 7.7 L - ABG Interpretation ABG results: ABG ABG pH 7.39 pH Units (7.32-7.45) 01/22/17 14:01 ABG pCO2 47 mmHg (35-45) H 01/22/17 14:01 ABG pO2 56 mmHg (85-104) L 01/22/17 14:01 ABG O2 Saturation 88 % (95-98) L 01/22/17 14:01 PT/INR, D-dimer PT 13.0 Seconds (9.4-12.1) H 01/13/17 02:30 - Attending Attestation I conducted a face to face diagnostic evaluation of this patient and my medical decision-making was reviewed with the Resident Physician, Dr. Ronald Patel. I agree with the documented findings, disposition and treatment plan as described except to the extent set forth below: Continue diuresis with Lasix. Oxygen by trach mask. His oxygen saturation is 88-92% at rest on room air. Patient appears comfortable in no acute distress, denied shortness of breath. Continue discharge planning to [facility]. I appreciate pulmonary recommendations. CT of the chest personally reviewed shows right-sided hydropneumothorax unchanged from previous study. Dilshad Wright MD
--- NOTE | 2017-01-23 18:30 | Electrocardiograph Report ---
[place] [id number] Test Date: 2017-01-22 Pat Name: Willi Echavarria Department: 112 Room: 2A Gender: M Closer On: : 1945 Requested By: Anatoliy Fisher Order Number: [id number] Reading MD: Oh Barrios DO Measurements Intervals [place] Rate: 95 P: 28 GA: 208 QRS: 91 QRSD: 118 T: -29 QT: 343 QTc: 396 Interpretive Statements SINUS RHYTHM BORDERLINE RIGHT AXIS DEVIATION INTRAVENTRICULAR CONDUCTION DELAY Electronically Signed On 01-23-2017 18:29:27 EST by Oh Barrios DO
[2017-01-23] MEDS: risperiDONE 1 MG TABLET PO SCH (20:24)
[2017-01-23] MEDS: Melatonin 3 MG TABLET PO SCH (20:24)
[2017-01-24 03:17] LABS: Hematocrit 31.1 % (37.5-50.1); Hemoglobin 9.3 g/dL (12.9-16.9); Mean Corpuscular HGB Conc 29.9 g/dL (31.6-35.5); Mean Corpuscular Hemoglobin 24.9 pg (28.0-33.3); Mean Corpuscular Volume 83.2 fL (83.0-100.0); Mean Platelet Volume 10.1 fL (9.4-12.4); Platelet Count 218 K/mcL (140-400); Red Blood Count 3.74 M/mcL (4.19-5.50)
[2017-01-24 03:35] LABS: BUN/Creatinine Ratio 19 (6-26); Blood Urea Nitrogen 15 mg/dL (8-26); Carbon Dioxide 27 mEq/L (19-29); Chloride 102 mEq/L (98-109); Glucose 95 mg/dL (70-99); Osmolality,Calculated 287 (280-300); Potassium 4.5 mEq/L (3.5-4.5); Sodium 138 mEq/L (136-145); eGFR For African Americans > 60 (> 60); eGFR For Non-African Americans > 60 (> 60)
[2017-01-24] MEDS: Levothyroxine 25 MCG TABLET PO SCH (05:52)
[2017-01-24] MEDS: levoFLOXacin 500 MG TABLET PO SCH (08:09)
[2017-01-24] MEDS: Gabapentin 400 MG CAPSULE PO SCH ×3 (08:09→20:30)
[2017-01-24] MEDS: amLODIPine 5 MG TABLET PO SCH (08:09)
[2017-01-24] MEDS: Isosorbide MONOnitrate (24 HR) 60 MG TAB.ER.24H PO SCH (08:09)
[2017-01-24] MEDS: Lisinopril 20 MG TABLET PO SCH (08:09)
[2017-01-24] MEDS: *HR* Morphine 2 MG/ML SYRINGE IVP PRN ×4 (08:22→23:00)
--- NOTE | 2017-01-24 10:20 | Internal Med Progress Note ---
<Ronald Patel - Last Filed: 01/24/17 10:20> Date of Encounter: 01/24/17 Time of Encounter: 10:15 (:) - Assessment and plan (1) Loculated pleural effusion Current Visit: Yes Status: Acute Assessment and plan: CT chest: Right pigtail pleural catheter terminates within loculated right- sided pleural effusion. Diagnostic thoracentesis was performed on 01/13/17. Per thoracentesis report, no bacteria were identified. Pleural fluid had a pH of 8, bloody appearance, 80% lymphocytes; light criteria indicative of exudative effusion. Repeat CT scan performed on 01/16/17: Demonstrated no changes in the right sided effusion. Also revealed the presence of bibasilar atelectasis. Chest tube was removed; shortly after, patient's O2 saturation dropped into the 80s. Per pulmonology: -Chest x-ray performed today demonstrates worsening cardiogenic pulmonary edema , worsening bilateral effusions. -BNP greater than 400. Lower extremity edema. -Pulmonology recommends diuresis over the next 24-48 hours with a goal 1-2 L negative. -Monitor kidney function and electrolytes. -Patient will need a follow-up CT scan in 4-6 weeks with outpatient pulmonology follow-up at either the [place] or [facility]. -If there is any evidence of infection such as worsening leukocytosis, CT of the thorax will be indicated. -Pulmonology does not recommend thoracentesis or chest tube placement at this time. -Continue to wean FiO2 to keep saturation between 89-92%. Repeat CT Scan performed on 01/22/17: Stable with loculated hydropneumothorax at the right lung base, bibasilar scarring and bibasilar rounded atelectasis. No significant changed since prior exam. Patient's O2 saturation was 90 this morning. No acute respiratory distress. (2) HCAP (healthcare-associated pneumonia) Current Visit: Yes Status: Acute Assessment and plan: CTA on 01/12/17: demonstrated pneumonia and loculated pleural effusion on the right side. Blood CX negative. Repeat CT of the chest on 01/14/17: reveals areas of consolidation in the bilateral lower lobes and lingula have mildly improved since prior examination. Repeat CT chest on 01/16/17: No change in size of the right-sided effusion, bibasilar atelectasis. Pneumonia appears to have resolved (3) COPD (chronic obstructive pulmonary disease) Current Visit: Yes Status: Chronic Assessment and plan: Plan: -DuoNeb 3ml IH Q4 PRN Qualifiers: COPD type: COPD with acute exacerbation Qualified Code(s): J44.1 - Chronic obstructive pulmonary disease with (acute) exacerbation (4) Hypertension Current Visit: Yes Status: Acute Assessment and plan: Amlodipine 10 mg PO daily Qualifiers: Hypertension type: essential hypertension Qualified Code(s): I10 - Essential (primary) hypertension (5) Hemoptysis Current Visit: Yes Status: Resolved Assessment and plan: Patient has not had hemoptysis since his admission. Per pulmonology, there is no need for bronchoscopy. (6) Dilated tracheostomy stoma Current Visit: Yes Status: Acute Assessment and plan: Tracheostomy since 1999 Stable (7) Pedal edema Current Visit: Yes Status: Acute Assessment and plan: Continue lasix - Subjective Interval history: Patient seen and examined at bedside this morning. Patient reports no acute distress. No SOB, cough, or wheezing. No complaints at this time. - Constitutional Vitals: Temp Pulse Resp BP Pulse Ox 98.3 F 90 20 128/78 90 01/24/17 07:26 01/24/17 07:26 01/24/17 07:26 01/24/17 07:26 01/24/17 07:26 General appearance: Present: pleasant, no acute distress, answers questions appropriately - Head Head exam: Present: atraumatic, normocephalic - Eye Eye exam: Present: PERRL, conjuntiva pink, sclera anicteric Pupils: Present: PERRL - Neck Neck exam general surgery: Present: supple, trachea midline. Absent: lymphadenopathy Additional comments: Trach observed. - Respiratory Respiratory exam: Present: CTAB. Absent: accessory muscle use, rales, rhonchi, wheezes - Cardiovascular Cardiovascular exam: Present: RRR, +S1, +S2. Absent: diastolic murmur, gallop, rubs, systolic murmur - Extremities Exam Extremities exam: Present: warm, radial pulses palpable and symmetrical. Absent : calf tenderness, cyanotic, pedal edema - Skin Skin exam: Present: dry, intact Internal Medicine: Result - Labs CBC & Chem 7: 01/24/17 02:51 01/24/17 02:51 Labs: Short CBC 01/24/17 Range/Units 02:51 WBC 6.5 (4.3-11.1) K/mcL Hgb 9.3 L (12.9-16.9) g/dL Hct 31.1 L (37.5-50.1) % Plt Count 218 (140-400) K/mcL BMP 01/24/17 02:51 Sodium 138 Potassium 4.5 Chloride 102 Carbon Dioxide 27 BUN 15 Creatinine 0.78 Glucose 95 Calcium 8.0 L - ABG Interpretation ABG results: ABG ABG pH 7.39 pH Units (7.32-7.45) 01/22/17 14:01 ABG pCO2 47 mmHg (35-45) H 01/22/17 14:01 ABG pO2 56 mmHg (85-104) L 01/22/17 14:01 ABG O2 Saturation 88 % (95-98) L 01/22/17 14:01 PT/INR, D-dimer PT 13.0 Seconds (9.4-12.1) H 01/13/17 02:30 Consult Discharge Plan - Plan Instructions: Pleural Effusion (DC), Hyperkalemia (DC), Pneumonia (DC) [facility]: [facility] [Primary Care Provider[facility] - (Patient will follow up with the [facility]) Prescriptions: Levofloxacin [Levaquin] 500 mg PO DAILY #4 tablet <Dilshad Wright - Last Filed: 01/24/17 17:03> Date of Encounter: 01/24/17 - Constitutional Vitals: Temp Pulse Resp BP Pulse Ox 97.9 F 85 16 102/59 91 01/24/17 16:02 01/24/17 16:02 01/24/17 16:02 01/24/17 16:02 01/24/17 16:02 Internal Medicine: Result - Labs CBC & Chem 7: 01/24/17 02:51 01/24/17 02:51 Labs: Short CBC 01/24/17 Range/Units 02:51 WBC 6.5 (4.3-11.1) K/mcL Hgb 9.3 L (12.9-16.9) g/dL Hct 31.1 L (37.5-50.1) % Plt Count 218 (140-400) K/mcL [facility] 01/24/17 02:51 Sodium 138 Potassium 4.5 Chloride 102 Carbon Dioxide 27 BUN 15 Creatinine 0.78 Glucose 95 Calcium 8.0 L Cardiac Enzymes 01/24/17 Range/Units 12:52 Troponin I 0.01 (0-0.03) ng/mL - ABG Interpretation ABG results: ABG ABG pH 7.39 pH Units (7.32-7.45) 01/22/17 14:01 ABG pCO2 47 mmHg (35-45) H 01/22/17 14:01 ABG pO2 56 mmHg (85-104) L 01/22/17 14:01 ABG O2 Saturation 88 % (95-98) L 01/22/17 14:01 PT/INR, D-dimer PT 13.0 Seconds (9.4-12.1) H 01/13/17 02:30 - Attending Attestation I conducted a face to face diagnostic evaluation of this patient and my medical decision-making was reviewed with the Resident Physician, Dr. Ronald Patel. I agree with the documented findings, disposition and treatment plan as described except to the extent set forth below: I discussed the plan of care with the [facility] physician. The [facility] physician requested EKG, repeat chemistry, and troponin. We performed an EKG which appears as normal sinus rhythm with nonspecific intraventricular conduction delay with no acute ST or T-wave changes. Unchanged from admission EKG. Troponin is 0.01. Chem-7 is within normal range limited. I received a call from the [facility] physician who stated that based on the nursing report the patient does not have psychiatric needs and therefore they are refusing to take the patient back to the psychiatric unit who referred him to our hospital for medical care. I explained to the [facility] physician that the patient is not suicidal or homicidal however he does have depression and needs his psychiatric medication adjusted and observed in an inpatient psychiatric unit. At this point the patient's disposition is pending.
[2017-01-24] MEDS: Melatonin 3 MG TABLET PO SCH (20:30)
[2017-01-24] MEDS: risperiDONE 1 MG TABLET PO SCH (20:31)
[2017-01-25] MEDS: Levothyroxine 25 MCG TABLET PO SCH (05:11)
[2017-01-25 07:16] VITALS: BP 142/84
[2017-01-25] MEDS: Lisinopril 20 MG TABLET PO SCH (07:45)
[2017-01-25] MEDS: amLODIPine 5 MG TABLET PO SCH (07:45)
[2017-01-25] MEDS: Gabapentin 400 MG CAPSULE PO SCH (07:46)
[2017-01-25] MEDS: levoFLOXacin 500 MG TABLET PO SCH (07:46)
[2017-01-25] MEDS: Isosorbide MONOnitrate (24 HR) 60 MG TAB.ER.24H PO SCH (07:47)
[2017-01-25] MEDS: *HR* Morphine 2 MG/ML SYRINGE IVP PRN (07:47)
--- NOTE | 2017-01-25 08:40 | Internal Med Progress Note ---
<FelyAnatoliy españa - Last Filed: 01/25/17 08:45> Date of Encounter: 01/25/17 Time of Encounter: 08:39 - Assessment and plan (1) Loculated pleural effusion Status: Acute Assessment and plan: Status post drainage with pigtail pleural catheter. After Spontaneous 7 Days Ago, Patient Did Have Some Hypoxia for a Short Time Thereafter However This Is Resolved. Suture Removed from catheter site. Patient is stable at this time and will be discharged back to the [facility] facility. (2) HCAP (healthcare-associated pneumonia) Status: Resolved (3) Hypertension Status: Acute Qualifiers: Hypertension type: essential hypertension Qualified Code(s): I10 - Essential (primary) hypertension (4) COPD (chronic obstructive pulmonary disease) Status: Chronic Qualifiers: COPD type: COPD with acute exacerbation Qualified Code(s): J44.1 - Chronic obstructive pulmonary disease with (acute) exacerbation - Subjective Interval history: Patient seen and examined at bedside. He has no complaints today. He states that his breathing continues to improve. He states he is ready to go. - Constitutional Vitals: Temp Pulse Resp BP Pulse Ox 98.5 F 93 18 142/84 90 01/25/17 07:15 01/25/17 07:15 01/25/17 07:15 01/25/17 07:15 01/24/17 22:58 General appearance: Present: pleasant, no acute distress, answers questions appropriately - Respiratory Respiratory exam: Present: decreased breath sounds (Right). Absent: rales, rhonchi, wheezes - Cardiovascular Cardiovascular exam: Present: RRR. Absent: gallop, rubs, systolic murmur - GI/Abdominal GI/Abdominal exam: Present: normal bowel sounds, soft. Absent: distended, tenderness - Extremities Exam Extremities exam: Present: warm. Absent: pedal edema, tenderness Internal Medicine: Result - Labs CBC & Chem 7: 01/24/17 02:51 01/24/17 02:51 Labs: Cardiac Enzymes 01/24/17 Range/Units 12:52 Troponin I 0.01 (0-0.03) ng/mL - ABG Interpretation ABG results: ABG ABG pH 7.39 pH Units (7.32-7.45) 01/22/17 14:01 ABG pCO2 47 mmHg (35-45) H 01/22/17 14:01 ABG pO2 56 mmHg (85-104) L 01/22/17 14:01 ABG O2 Saturation 88 % (95-98) L 01/22/17 14:01 PT/INR, D-dimer PT 13.0 Seconds (9.4-12.1) H 01/13/17 02:30 Consult Discharge Plan - Plan Instructions: Pleural Effusion (DC), Hyperkalemia (DC), Pneumonia (DC) [facility] - (Patient will follow up with the [facility]) Prescriptions: Levofloxacin [Levaquin] 500 mg PO DAILY #4 tablet <AdrianaDilshad - Last Filed: 01/25/17 16:00> Date of Encounter: 01/25/17 - Constitutional Vitals: Temp Pulse Resp BP Pulse Ox 98.5 F 93 18 142/84 90 01/25/17 07:15 01/25/17 07:15 01/25/17 07:15 01/25/17 07:15 01/24/17 22:58 Internal Medicine: Result - Labs CBC & Chem 7: 01/24/17 02:51 01/24/17 02:51 - ABG Interpretation ABG results: ABG ABG pH 7.39 pH Units (7.32-7.45) 01/22/17 14:01 ABG pCO2 47 mmHg (35-45) H 01/22/17 14:01 ABG pO2 56 mmHg (85-104) L 01/22/17 14:01 ABG O2 Saturation 88 % (95-98) L 01/22/17 14:01 PT/INR, D-dimer PT 13.0 Seconds (9.4-12.1) H 01/13/17 02:30 - Attending Attestation I conducted a face to face diagnostic evaluation of this patient and my medical decision-making was reviewed with the Resident Physician, Dr. Anatoliy Fisher. I agree with the documented findings, disposition and treatment plan as described except to the extent set forth below: Patient denies shortness of breath. On exam he has diminished breath sounds at the right base. There are sutures present in the right lower chest area from the chest tube. We will remove the sutures. Patient will be discharged back to the [facility].
--- NOTE | 2017-01-27 01:55 | Electrocardiograph Report ---
[place] [id number] Test Date: 2017-01-24 Pat Name: Willi Echavarria Department: 112 Room: 2A Gender: M [employer] Tester: : 1945 Requested By: Dilshad Wright Order Number: [id number] Reading MD: Trip Martins MD Measurements Intervals [place] Rate: 89 P: 37 CO: 211 QRS: -29 QRSD: 125 T: 43 QT: 373 QTc: 420 Interpretive Statements SINUS RHYTHM WITH FIRST DEGREE AV BLOCK Electronically Signed On 01-27-2017 1:54:08 EST by Trip Martins MD
== END 2017-01-25 08:50 | DRG 193 ==
LOC: EMEROO 10:06 → MERGE 14:10 → 2ANU 14:10 → SUATTDRO 14:10 → 2ANU 14:45
PROVIDERS: ADMIT Internal Medicine; ATTEND Internal Medicine